=== PATIENT | male | born 1950 | race African-American/Black ===

== ENCOUNTER 2016-12-27 05:26 | Inpatient (IN) | payer MEDICARE, OTHER ==
[2016-12-27] VITALS (9 sets, daily range): BP systolic 140–170; BP diastolic 84–101
[~2016-12-27] VITALS: Ht 180.3 cm; Wt 77.1 kg
[~2016-12-27 05:26] MED LIST: BENAZEPRIL-HCT1 EAC1 PO; NORVASC10 MG PO; TENORMIN50 MG PO
[2016-12-27] MEDS ORDERED: Albuterol ud Inhalation HHN ONE (05:45)
--- NOTE | 2016-12-27 06:30 | Emergency Room Report ---
History of Present Illness General Chief Complaint: Dyspnea/Respdistress Source: Patient, EMS (NARCISO RICHMOND M.D.) Present Illness HPI Is a 66-year-old male with a history of renal failure hemodialysis Thursday, Thursday, and Thursday. he missed 2 dialysis session on Thursday and Thursday. The reason for this was because the of his mother in his planning the . The is today at 10 AM. he said he still able to urinate but less in the last week. He is becoming more and more shortness of breath. Worse tonight. He had to call 911. EMS said observation was fine but he was dyspneic. He fell better after oxygen. No fever or chills. No chest pain. Worse with exertion. Worse with lying flat. (NARCISO RICHMOND M.D.) Allergies: Coded Allergies: No Known Allergies (Unverified , 06/06/12) Patient History Past Medical History: see triage record, old chart reviewed, HTN, renal disease , dialysis Past Surgical History: other Pertinent Family History: none Social History: Denies: smoking Immunizations: other Reviewed Nursing Documentation: PMH: Agreed, PSxH: Agreed (NARCISO RICHMOND M.D.) Nursing Documentation-PMH Hx Hypertension: Yes Hx Dialysis: Yes - ESRD,M-W-F (NARCISO RICHMOND M.D.) Review of Systems Eye: Denies: blurred vision, eye pain ENT: Denies: ear pain, nose congestion, throat swelling Respiratory: Reports: shortness of breath, Denies: cough Cardiovascular: Denies: chest pain, palpitations Gastrointestinal: Denies: abdominal pain, diarrhea, nausea, vomiting Musculoskeletal: Denies: back pain, joint pain Skin: Denies: rash Neurological: Denies: headache, numbness Endocrine: Denies: increased thirst, increased urine Hematologic/Lymphatic: Denies: easy bruising All Other Systems: negative except mentioned in HPI (NARCISO RICHMOND M.D.) Physical Exam Vital Signs Date Time Temp Pulse Resp B/P Pulse Ox O2 Delivery O2 Flow Rate FiO2 12/27/16 05:25 98.6 94 18 165/99 100 Room Air vitals with hypertension Sp02 EP Interpretation: reviewed, normal General Appearance: well appearing, alert, mild distress Head: normocephalic, atraumatic Eyes: bilateral eye EOMI, bilateral eye PERRL ENT: hearing grossly normal, normal pharynx Neck: full range of motion, supple, no meningismus Respiratory: chest non-tender, respiratory distress - Mild, decreased breath sounds Cardiovascular #1: regular rate, rhythm, no murmur Gastrointestinal: normal bowel sounds, non tender, no mass, no organomegaly, no bruit, non-distended Musculoskeletal: back normal, gait/station normal, normal range of motion Neurologic: alert, oriented x3 Psychiatric: mood/affect normal Skin: warm/dry (NARCISO RICHMOND M.D.) Medical Decision Making Diagnostic Impression: Primary Impression: Respiratory distress Additional Impressions: Uremia ESRD (end stage renal disease) on dialysis Pulmonary edema Qualified Codes: J81.0 - Acute pulmonary edema UTI (urinary tract infection) Qualified Codes: N30.00 - Acute cystitis without hematuria ER Course Patient presents with respiratory distress and fluid overloaded. He need dialysis. He still better after breathing treatment and oxygen. I will put him in for admission. Labs are pending. I will sign this patient out to Dr. Oglesby. Lab Results Impression labs with elevated bnp. (NARCISO RICHMOND M.D.) ER Course Patient was admitted to Dr. Amaya. He insists on signing out AMA to go to his mother's . He was told of risk of in doing so. Given meds for HTN and also UTI. Improved with treatment. Extremely dyspneic with minimal exertion. He changed his mind and decided to stay. Repeat albuterol and nitrolpast applied. Morphine ordered. Laboratory Tests Test 12/27/16 05:44 12/27/16 06:30 White Blood Count 11.4 K/UL (4.8-10.8) H Red Blood Count 3.95 M/UL (4.70-6.10) L Hemoglobin 11.3 G/DL (14.2-18.0) L Hematocrit 34.6 % (42.0-52.0) L Mean Corpuscular Volume 88 FL (80-99) Mean Corpuscular Hemoglobin 28.6 PG (27.0-31.0) Mean Corpuscular Hemoglobin Concent 32.6 G/DL (32.0-36.0) Red Cell Distribution Width 14.6 % (11.6-14.8) Platelet Count 212 K/UL (150-450) Mean Platelet Volume 7.6 FL (6.5-10.1) Neutrophils (%) (Auto) 63.9 % (45.0-75.0) Lymphocytes (%) (Auto) 25.0 % (20.0-45.0) Monocytes (%) (Auto) 6.3 % (1.0-10.0) Eosinophils (%) (Auto) 3.9 % (0.0-3.0) H Basophils (%) (Auto) 0.9 % (0.0-2.0) Prothrombin Time 11.0 SEC (9.30-11.50) Prothrombin Time INR 1.1 (0.9-1.1) PTT 25 SEC (23-33) Sodium Level 144 mEQ/L (135-145) Potassium Level 4.3 mEQ/L (3.4-4.9) Chloride Level 100 mEQ/L (98-107) Carbon Dioxide Level 27 mEQ/L (20-30) Anion Gap 17 (5-15) H Blood Urea Nitrogen 53 mg/dL (7-23) H Creatinine 11.3 mg/dL (0.7-1.2) H Estimate Glomerular Filtration Rate 5.6 mL/min (>60) Glucose Level 114 mg/dL (74-106) H Calcium Level 9.4 mg/dL (8.6-10.2) Total Bilirubin 0.3 mg/dL (0.0-1.2) Aspartate Amino Transferase (AST) 13 U/L (5-40) Alanine Aminotransferase (ALT) 9 U/L (3-41) Alkaline Phosphatase 77 U/L (40-129) Total Creatine Kinase 99 U/L (38-174) Creatine Kinase MB 1.7 ng/mL (< 6.7) Creatine Kinase MB Relative Index 1.7 Troponin I < 0.30 ng/mL (<=0.30) Pro-B-Type Natriuretic Peptide 63647 pg/mL (0-125) H Total Protein 7.3 g/dL (6.6-8.7) Albumin 4.0 g/dL (3.5-5.2) Globulin 3.3 g/dL Albumin/Globulin Ratio 1.2 (1.0-2.7) Urine Color Pale yellow Urine Appearance Clear Urine pH 7 (4.5-8.0) Urine Specific [place] 1.010 (1.005-1.035) Urine Protein 4+ (NEGATIVE) H Urine Glucose (UA) Negative (NEGATIVE) Urine Ketones Negative (NEGATIVE) Urine Occult Blood 3+ (NEGATIVE) H Urine Nitrite Negative (NEGATIVE) Urine Bilirubin Negative (NEGATIVE) Urine Urobilinogen Normal MG/DL (0.0-1.0) Urine Leukocyte Esterase Negative (NEGATIVE) Urine RBC 15-20 /HPF (0 - 0) H Urine WBC 5-10 /HPF (0 - 0) H Urine Squamous Epithelial Cells Occasional /LPF Urine Bacteria Occasional /HPF (NONE) (Trino Oglesby M.D.) EKG Diagnostic Results Rate: normal Rhythm: NSR ST Segments: no acute changes (NARCISO RICHMOND M.D.) Rhythm Strip Diag. Results EP Interpretation: yes Rate: 90 Rhythm: NSR, no PVC's, no ectopy (NARCISO RICHMOND M.D.) EP Interpretation: yes Rhythm: NSR, no PVC's, no ectopy (Trino Oglesby M.D.) Chest X-Ray Diagnostic Results EP Interpretation: Yes Findings: no consolidation, no effusion, no pneumothorax, other - hyperinflation. fluids in the minor fissure. Number of Views: 1 (NARCISO RICHMOND M.D.) Last Vital Signs Date Time Temp Pulse Resp B/P Pulse Ox O2 Delivery O2 Flow Rate FiO2 12/27/16 05:58 87 18 100 Room Air 12/27/16 05:39 98.6 160/99 Status: improved (NARCISO RICHMOND M.D.) Last Vital Signs Date Time Temp Pulse Resp B/P Pulse Ox O2 Delivery O2 Flow Rate FiO2 12/27/16 19:41 72 16 Room Air 21 12/27/16 18:15 2.0 12/27/16 17:13 100 12/27/16 15:39 97.4 157/98 Status: improved (Trino Oglesby M.D.) Disposition: ADMITTED INPATIENT Condition: Serious Scripts Nitroglycerin (NITRO-BID*) 1 Gm Oint...g. 1 INCH TOPIC BID, #30 PKT 1 Refill Prov: Trino Oglesby M.D. 12/27/16 Referrals: NOT CHOSEN [facility]/,REFERRING (PCP) NARCISO RICHMOND M.D. December 27, 2016 06:30 Trino Oglesby M.D. December 27, 2016 07:53
[2016-12-27 06:38] LABS: BASOPHILS % (AUTO) 0.9 % (0.0-2.0); EOSINOPHILS % (AUTO) 3.9 % (0.0-3.0); MEAN CORPUSCULAR HEMOGLOBIN 28.6 PG (27.0-31.0); MEAN CORPUSCULAR HGB CONC 32.6 G/DL (32.0-36.0); MEAN CORPUSCULAR VOLUME 88 FL (80-99); MEAN PLATELET VOLUME 7.6 FL (6.5-10.1); MONOCYTES % (AUTO) 6.3 % (1.0-10.0); NEUTROPHILS % (AUTO) 63.9 % (45.0-75.0); PLATELET COUNT 212 K/UL (150-450); RED BLOOD COUNT 3.95 M/UL (4.70-6.10); RED CELL DISTRIBUTION WIDTH 14.6 % (11.6-14.8); WHITE BLOOD COUNT 11.4 K/UL (4.8-10.8)
[2016-12-27 06:46] LABS: INR 1.1 (0.9-1.1)
[2016-12-27 06:50] LABS: ALBUMIN/GLOBULIN RATIO 1.2 (1.0-2.7); CALCIUM 9.4 mg/dL (8.6-10.2); CREATININE 11.3 mg/dL (0.7-1.2); GLOMERULAR FILTRATION RATE 5.6 mL/min (>60); POTASSIUM 4.3 mEQ/L (3.4-4.9); TOTAL PROTEIN 7.3 g/dL (6.6-8.7); TROPONIN I < 0.30 ng/mL (<=0.30)
[2016-12-27] MEDS ORDERED: Benazepril 10mg tab ORAL ONE (07:00)
[2016-12-27 07:02] LABS: CKMB 1.7 ng/mL (< 6.7)
[2016-12-27 07:09] LABS: APPEARANCE,URINE CLEAR; KETONES,URINE NEGATIVE (NEGATIVE); LEUKOCYTE ESTERASE ,URINE NEGATIVE (NEGATIVE); NITRITE,URINE NEGATIVE (NEGATIVE); PH,URINE 7 (4.5-8.0); PROTEIN,URINE 4+ (NEGATIVE); UROBILINOGEN,URINE NORMAL MG/DL (0.0-1.0)
[2016-12-27 07:30] LABS: BACTERIA,URINE OCCASIONAL /HPF; RBC,URINE 15-20 /HPF (0 - 0); SQUAMOUS EPITHELIAL CELL,UR OCCASIONAL /LPF (NONE/OCC)
[2016-12-27] MEDS ORDERED: cefTRIAXone 1 GM in NS 55 ML IVPB ONE (07:45)
[2016-12-27] MEDS ORDERED: Nitroglycerin 2% oint pkt TOPIC ONE (07:45)
[2016-12-27] MEDS ORDERED: KEFLEX500 MG ORAL (07:48)
[2016-12-27] MEDS ORDERED: NITRO-BID1 GM TOPIC (07:48)
[2016-12-27] MEDS ORDERED: Morphine Sulfate 2mg/ml Inj IVP ONE (09:00)
[2016-12-27] MEDS ORDERED: Albuterol ud Inhalation HHN STA (09:23)
[2016-12-27] MEDS ORDERED: Heparin Sod 1000 units/ml 10ml IV PRN (15:45)
[2016-12-27] MEDS ORDERED: DuoNeb 0.5-3(2.5)mg/3ml neb HHN PRN (16:45)
--- NOTE | 2016-12-27 19:54 | History & Physical ---
History and Physical History & Physicial > dictated # [id number] ALVIN HUTCHINS December 27, 2016 19:54
--- NOTE | 2016-12-28 03:39 | History and Physical Report ---
DATE OF ADMISSION: 12/27/2016 CHIEF COMPLAINT: Shortness of breath. HISTORY OF PRESENT ILLNESS: This is a 66-year-old -Maldivian male with history of end-stage renal disease, on hemodialysis every Thursday, Thursday, and Thursday. He said that he missed dialysis last Thursday three days ago, and yesterday in terms of he had dialysis last Thursday and it was noted that he missed two times. In any event, he was planning for the of his mother who just , but he came to the emergency room because he was getting short of breath this morning and he was admitted, then he called 911. PAST MEDICAL HISTORY: History of hypertension. No history of diabetes now. Denies history of heart problems. SOCIAL HISTORY: The patient has a history of smoking. No history of alcohol abuse. REVIEW OF SYSTEMS: As above. PHYSICAL EXAMINATION: GENERAL: The patient is a 66-year-old male, in no acute distress. VITAL SIGNS: Blood pressure 165/99, pulse 94, temperature 98.6 degrees, and respiratory rate is 18. HEENT: [place] conjunctivae. Anicteric sclerae. NECK: Supple. LUNGS: Mild expiatory wheezing. HEART: S1 and S2 without murmurs or rubs. ABDOMEN: Soft and nontender. EXTREMITIES: No cyanosis or edema. LABORATORY FINDINGS: CBC shows WBC of 11.4, hematocrit 34.6, hemoglobin 11.3, and platelets 212,000. Chemistry panel shows serum sodium 144, potassium 4.3, chloride 100, BUN 53, creatinine 11.3, and glucose is 114. Troponin was negative. UA shows 15 to 20 RBCs, 5 to 10 WBCs per high-power field and 4+ protein. ASSESSMENT: This is a 66-year-old -Maldivian male, who was admitted with shortness of breath likely fluid overload. He was dialyzed and about 2 liters was removed. He feels better now. He wants to go home. He may have also some underlying chronic obstructive pulmonary disease because of history of smoking, but his lungs do not sound very bad at this point. PLAN: The patient was advised to stop smoking. He also was advised to comply with his dialysis. I will discharge him today and he was encouraged to go to his dialysis unit on Thursday at [facility] in [facility]. Thank you very much. Nabil Amaya M.D. DR: MONICA JOB#: [id number] CC:
--- NOTE | 2016-12-28 20:01 | Cardiology Report ---
APPROVED REPORT EKG Measurement Heart [id number] Sinus rhythm with premature supraventricular complexes Biatrial enlargement Nonspecific T wave abnormality Abnormal ECG
--- NOTE | 2016-12-30 10:43 | Discharge Summary ---
Discharge Summary Hospital Course Date of Admission December 27, 2016 at 06:52 Date of Discharge December 27, 2016 at 21:30 Admitting Diagnosis Fluid Overload HPI Bonifacio Paredes is a 66 year old male who was admitted on December 27, 2016 at 06:52 for Fluid Overload Hospital Course dc summary #[id number] Discharge Medications Continued Medications: Amlodipine Besylate (Norvasc) 10 Mg Tab 10 MG PO DAILY, TAB Take 1 tablet by mouth every day. Benazepril/Hydrochlorothiazide 20-12.5 Mg Tab (Benazepril-Hctz 20-12.5 Mg Tab) 1 Each Tablet 1 EACH PO DAILY Nitroglycerin (Nitro-Bid*) 1 Gm Oint...g. 1 INCH TOPIC BID, #30 PKT 1 Refill Discontinued Medications: Cephalexin* (Keflex*) 500 Mg Capsule 500 MG ORAL DAILY, #7 CAP 0 Refills Discharge Condition Upon Discharge: stable Discharge Disposition Patient was discharged to Home (01) Discharge Diagnoses: Discharge Instructions Discharge Instructions Special Instructions I have been assigned to complete a D/C Summary on this account. I was not involved in the patient management Colleen Ha NP (Vanchtein) December 30, 2016 10:43
== END 2016-12-27 21:30 | disposition home or self-care (01) | DRG 640 ==
LOC: EDBD 05:26 → EMR 06:05 → 4W 06:52 → EDBEDREQ 07:36
PROC: 5A1D00Z (ICD-10-PCS; principal; 2016-12-27)
DX: E87.70 Fluid overload, unspecified (principal); N18.6 End stage renal disease; J81.0 Acute pulmonary edema; I12.0 Hypertensive chronic kidney disease with stage 5 chronic kidney disease or end stage renal disease; J44.9 Chronic obstructive pulmonary disease, unspecified; N39.0 Urinary tract infection, site not specified; Z99.2 Dependence on renal dialysis; Z72.0 Tobacco use
CPT/HCPCS: 36415; 71010; 80053; 81003; 82550; 82553; 83880; 84484; 85025; 85610; 85730; 87081; 93005; 94640; 94664; J7620

== ENCOUNTER 2017-02-11 22:33 | Inpatient (IN) | payer MEDICARE, OTHER ==
[~2017-02-11] VITALS: Ht 180.3 cm; Wt 81.6 kg
[~2017-02-11 22:33] MED LIST changes: +AMLODIPINE BES2.5 MG ORAL; +KEFLEX500 MG ORAL; +NITRO-BID1 GM TOPIC
[2017-02-11] MEDS ORDERED: CLONIDINE HCL0.1 M1 PO (22:35)
[2017-02-11] MEDS ORDERED: AMLODIPINE BES2.5 MG ORAL (22:35)
[2017-02-11] MEDS ORDERED: LIBRIUM10 MG ORAL (22:35)
[2017-02-11 22:44] VITALS: BP 143/94
[2017-02-11] MEDS ORDERED: LORazepam Inj 2mg/ml 1ml IV ONE (22:45)
[2017-02-11] MEDS ORDERED: Zolpidem 5mg tab ORAL PRN (23:15)
[2017-02-11 23:35] LABS: BASOPHILS % (AUTO) 1.1 % (0.0-2.0); EOSINOPHILS % (AUTO) 5.5 % (0.0-3.0); LYMPHOCYTES % (AUTO) 29.9 % (20.0-45.0); MEAN CORPUSCULAR HEMOGLOBIN 28.9 PG (27.0-31.0); MEAN CORPUSCULAR HGB CONC 32.1 G/DL (32.0-36.0); MEAN CORPUSCULAR VOLUME 90 FL (80-99); NEUTROPHILS % (AUTO) 56.5 % (45.0-75.0); PLATELET COUNT 294 K/UL (150-450); RED BLOOD COUNT 2.99 M/UL (4.70-6.10); RED CELL DISTRIBUTION WIDTH 14.8 % (11.6-14.8); WHITE BLOOD COUNT 6.4 K/UL (4.8-10.8)
[2017-02-11 23:50] LABS: ALBUMIN/GLOBULIN RATIO 0.9 (1.0-2.7); CALCIUM 8.9 mg/dL (8.6-10.2); CREATININE 4.7 mg/dL (0.7-1.2); GLOMERULAR FILTRATION RATE 15.2 mL/min (>60); POTASSIUM 4.1 mEQ/L (3.4-4.9); TOTAL PROTEIN 7.7 g/dL (6.6-8.7)
[2017-02-11 23:52] LABS: TROPONIN I < 0.30 ng/mL (<=0.30)
[2017-02-12] VITALS (8 sets, daily range): BP systolic 136–164; BP diastolic 82–99
[2017-02-12 00:02] LABS: CKMB 2.1 ng/mL (< 6.7)
[2017-02-12] MEDS: DuoNeb 0.5-3(2.5)mg/3ml neb HHN SCH ×4 (00:39→23:00)
--- NOTE | 2017-02-12 01:43 | Emergency Room Report ---
History of Present Illness General Chief Complaint: Dyspnea/Respdistress Source: Patient, EMS Present Illness HPI 66-year-old M presents ED for respiratory distress. EMS states that patient was having shortness of breath which started shortly after dialysis today. Per EMS patient is hypertensive and had crackles noted in bilateral lungs. Patient was given nitroglycerin. Upon arrival patient showing distress. Also feels very anxious. Has psychiatric history. Denies any chest pain. Denies any fevers or chills. No other aggravating relieving factors. Denies any other associated symptoms Allergies: Coded Allergies: No Known Allergies (Unverified , 06/06/12) Patient History Past Medical History: HTN, psych hx, renal disease, dialysis Past Surgical History: none Pertinent Family History: none Social History: Denies: alcohol use, drug use, smoking Immunizations: UTD Reviewed Nursing Documentation: PMH: Agreed, PSxH: Agreed Nursing Documentation-PMH Hx Hypertension: Yes Hx Cancer: No Hx Gastrointestinal Problems: No Hx Dialysis: Yes - ESRD,M-W-F History Of Psychiatric Problem: Yes Hx Neurological Problems: No Review of Systems All Other Systems: negative except mentioned in HPI Physical Exam Vital Signs Date Time Temp Pulse Resp B/P Pulse Ox O2 Delivery O2 Flow Rate FiO2 02/11/17 22:37 129 18 100 Facial 35 02/11/17 22:44 143/94 Sp02 EP Interpretation: reviewed, normal General Appearance: alert, GCS 15, moderate distress Head: normocephalic Eyes: bilateral eye PERRL, bilateral eye normal inspection ENT: normal ENT inspection Neck: normal inspection Respiratory: crackles Cardiovascular #1: no edema, tachycardia Gastrointestinal: normal inspection Rectal: deferred Genitourinary: no CVA tenderness Musculoskeletal: normal inspection Neurologic: alert, oriented x3, responsive, motor strength/tone normal, sensory intact, speech normal Psychiatric: anxious Skin: normal inspection Lymphatic: normal inspection Procedures Critical Care Time Critical Care Time i. I feel this is a highly complex case requiring extensive working including EKG/Rhythm strip, Xray/CT/US, Blood/urine lab work, repeat exams while in ED, and administration of strong opiates/narcotics for pain control, admission to hospital or close patient follow up. Total time: 30 min bedside evaluation and treatment excludes procedures (EKG). Reason for critical care: Respiratory distress, hypertensive, tachycardic Possible complications: hypotension, hypertension, HI, shock, arrhythmias, metabolic acidosis, end organ damage, respiratory failure. Interventions: Labs, Ativan, BiPAP, EKG, chest x-ray Course: Patient here with respiratory distress. Crackles in both lung yeager. History of dialysis. Started on BiPAP. Given Ativan for anxiety. On reassessment readings improved. Consultations: nursing staff, EMS, family Performed by: Dr Aranda Tolerated well condition = serious j. because of unstable vital signs this patient had a condition that could potentially threaten life or limb. I feel this is a critical patient who required my full attention while patient was considered critical. Total Critical Care Time excluding procedures was greater than 35 minutes Medical Decision Making Diagnostic Impression: Primary Impression: Respiratory distress Additional Impressions: CHF (congestive heart failure) Qualified Codes: I50.9 - Heart failure, unspecified ESRD (end stage renal disease) on dialysis ER Course Hospital Course 66-year-old male presents ED with crackles, hypertensive, just completed dialysis. Shortness of breath Differential diagnoses include: HI/unstable angina, contusion, muscle strain, PTX, rib fracture Clinical course Patient placed on stretcher. on phototypesetting equipment monitor. Patient started on BiPAP. Given Ativan for anxiety. After initial history and physical I ordered labs, EKG, chest x-ray labs reviewed- no leukocytosis, hemoglobin 8.6, BUN/creatinine elevated, troponins negative, BNP elevated EKG - atrial flutter, no acute ischemic changes interpreted by me Chest x-ray- no acute cardiac process identified On reassessment breathing is improved. Tachycardia resolved. O2 saturations good. Case discussed with Dr. Amaya and he agreed to accept the patient to his service for further care and support I. I feel this is a highly complex case requiring extensive working including EKG/Rhythm strip, Xray/CT/US, Blood/urine lab work, repeat exams while in ED, and administration of strong opiates/narcotics for pain control, admission to hospital or close patient follow up. Diagnosis - CHF exacerbation, respiratory distress, ESRD on dialysis admitted to [facility] in serious condition Labs Test 02/11/17 22:52 White Blood Count 6.4 K/UL (4.8-10.8) Red Blood Count 2.99 M/UL (4.70-6.10) Hemoglobin 8.6 G/DL (14.2-18.0) Hematocrit 26.9 % (42.0-52.0) Mean Corpuscular Volume 90 FL (80-99) Mean Corpuscular Hemoglobin 28.9 PG (27.0-31.0) Mean Corpuscular Hemoglobin Concent 32.1 G/DL (32.0-36.0) Red Cell Distribution Width 14.8 % (11.6-14.8) Platelet Count 294 K/UL (150-450) Mean Platelet Volume 7.0 FL (6.5-10.1) Neutrophils (%) (Auto) 56.5 % (45.0-75.0) Lymphocytes (%) (Auto) 29.9 % (20.0-45.0) Monocytes (%) (Auto) 7.0 % (1.0-10.0) Eosinophils (%) (Auto) 5.5 % (0.0-3.0) Basophils (%) (Auto) 1.1 % (0.0-2.0) Sodium Level 142 mEQ/L (135-145) Potassium Level 4.1 mEQ/L (3.4-4.9) Chloride Level 94 mEQ/L (98-107) Carbon Dioxide Level 34 mEQ/L (20-30) Anion Gap 14 (5-15) Blood Urea Nitrogen 16 mg/dL (7-23) Creatinine 4.7 mg/dL (0.7-1.2) Estimat Glomerular Filtration Rate 15.2 mL/min (>60) Glucose Level 111 mg/dL (74-106) Calcium Level 8.9 mg/dL (8.6-10.2) Total Bilirubin 0.2 mg/dL (0.0-1.2) Aspartate Amino Transf (AST/SGOT) 68 U/L (5-40) Alanine Aminotransferase (ALT/SGPT) 39 U/L (3-41) Alkaline Phosphatase 190 U/L (40-129) Total Creatine Kinase 164 U/L (38-174) Creatine Kinase MB 2.1 ng/mL (< 6.7) Creatine Kinase MB Relative Index 1.2 Troponin I < 0.30 ng/mL (<=0.30) Pro-B-Type Natriuretic Peptide 60466 pg/mL (0-125) Total Protein 7.7 g/dL (6.6-8.7) Albumin 3.7 g/dL (3.5-5.2) Globulin 4.0 g/dL Albumin/Globulin Ratio 0.9 (1.0-2.7) EKG Diagnostic Results Rate: tachycardiac Rhythm: other - aflutter ST Segments: no acute changes ASA given to the pt in ED: No Rhythm Strip Diag. Results EP Interpretation: yes Rhythm: no PVC's, no ectopy Chest X-Ray Diagnostic Results Chest X-Ray Ordered: Yes # of Views/Limited/Complete: 1 View EP Interpretation: Yes Interpretation: no consolidation, no effusion, no pneumothorax, no acute cardiopulmonary disease Indication: Shortness of Breath Impression: No acute disease Interpreting ER Provider: Alfredo Aranda MD Last Vital Signs Date Time Temp Pulse Resp B/P Pulse Ox O2 Delivery O2 Flow Rate FiO2 02/12/17 01:14 77 18 148/83 100 Bi-pap 35 Status: improved Disposition: ADMITTED INPATIENT Condition: Serious Referrals: NOT CHOSEN DEMARCUS/,REFERRING (PCP) ALFREDO ARANDA M.D. Feb 12, 2017 01:43
[2017-02-12 05:09] LABS: BASOPHILS % (AUTO) 0.8 % (0.0-2.0); EOSINOPHILS % (AUTO) 2.4 % (0.0-3.0); MEAN CORPUSCULAR HEMOGLOBIN 29.1 PG (27.0-31.0); MEAN CORPUSCULAR HGB CONC 32.2 G/DL (32.0-36.0); MEAN CORPUSCULAR VOLUME 91 FL (80-99); MEAN PLATELET VOLUME 7.7 FL (6.5-10.1); MONOCYTES % (AUTO) 7.1 % (1.0-10.0); NEUTROPHILS % (AUTO) 71.7 % (45.0-75.0); PLATELET COUNT 243 K/UL (150-450); RED BLOOD COUNT 2.88 M/UL (4.70-6.10); RED CELL DISTRIBUTION WIDTH 14.8 % (11.6-14.8); WHITE BLOOD COUNT 6.2 K/UL (4.8-10.8)
[2017-02-12 05:53] LABS: CALCIUM 9.1 mg/dL (8.6-10.2); CHOLESTEROL/HDL RATIO 2.3 (3.3-4.4); CREATININE 5.4 mg/dL (0.7-1.2); POTASSIUM 4.2 mEQ/L (3.4-4.9)
[2017-02-12 05:55] LABS: HEMOGLOBIN A1C 4.4 % (< 6.0)
[2017-02-12 05:56] LABS: TROPONIN I < 0.30 ng/mL (<=0.30)
[2017-02-12 06:03] LABS: THYROID STIMULATING HORMONE 1.97 uIU/mL (0.300-4.500)
[2017-02-12 09:19] LABS: MAGNESIUM 1.8 mg/dL (1.7-2.5); PHOSPHORUS 2.6 mg/dL (2.5-4.8)
[2017-02-12] MEDS: Aspirin Baby 81mg ORAL SCH (09:24)
[2017-02-12] MEDS: Nitroglycerin 2% oint pkt TOPIC SCH ×2 (09:25→18:00)
--- NOTE | 2017-02-12 12:42 | Consultation ---
Consult Note Assessment/Plan Renal consult dictated # [id number] ALVIN HUTCHINS Feb 12, 2017 12:42
[2017-02-12] MEDS ORDERED: LIPITOR80 MG ORAL (13:42)
[2017-02-12] MEDS ORDERED: ASPIR 8181 MG ORAL (13:42)
[2017-02-12] MEDS ORDERED: LEXAPRO10 MG ORAL (13:42)
[2017-02-12] MEDS ORDERED: PLAVIX75 MG ORAL (13:42)
[2017-02-12] MEDS ORDERED: FLOMAX0.4 MG ORAL (13:44)
[2017-02-12] MEDS ORDERED: SPIRIVA18 MCG INH (13:44)
[2017-02-12] MEDS ORDERED: GABAPENTIN100 MG ORAL (13:44)
[2017-02-12] MEDS ORDERED: NICODERM 7MG/24H1 EA TD (13:44)
[2017-02-12] MEDS ORDERED: Albuterol 90mcg Inhaler 8gm INH PRN (14:30)
--- NOTE | 2017-02-12 14:41 | History & Physical ---
History and Physical History & Physicial H&P dictated [id number] records reviewed at [facility] Dx: SOB - ddx: pulmonary edema vs pericardial effusion vs angina equivilent TTE ordered resume home ENRIQUE Lord M.D. Feb 12, 2017 14:41
[2017-02-12] MEDS: Lisinopril 20mg tab ORAL SCH (14:56)
[2017-02-12] MEDS: ALPRAZolam 0.5mg tab ORAL PRN ×2 (14:57→22:16)
[2017-02-12] MEDS: LORazepam 1mg tab ORAL PRN (14:58)
[2017-02-12] MEDS: traMADol 50mg tab ORAL PRN ×2 (14:58→22:16)
[2017-02-12 15:03] LABS: TROPONIN I < 0.30 ng/mL (<=0.30)
--- NOTE | 2017-02-12 16:01 | Consultation ---
DATE OF CONSULTATION: NEPHROLOGY CONSULTATION REFERRING PHYSICIAN: Trino Hinds M.D. REASON FOR CONSULTATION: End-stage renal disease, requiring hemodialysis. HISTORY OF PRESENT ILLNESS: This is a 66-year-old male, who is an end-stage renal disease, on dialysis every Thursday, Thursday, and Thursday. The patient went to his dialysis yesterday and he usually gets four hours with each section and after three hours he said he could not take it any more. He was getting short of breath. They stopped the dialysis, however, his breathing problem continued and finally he came to the emergency room. The patient was started on BiPAP in the emergency room and was admitted to [facility]. PAST MEDICAL HISTORY: History of end-stage renal disease as mentioned, likely as a result of hypertension. The patient apparently had also history of coronary disease. He said that he was short of breath about a month ago, he went to the hospital and they put a stent. MEDICATIONS: Reviewed. ALLERGIES: No known drug allergies. REVIEW OF SYSTEMS: Noncontributory except for above. PHYSICAL EXAMINATION: GENERAL: The patient is a 66-year-old male, in no acute distress. The patient was seen on dialysis. He appears comfortable on nasal cannula oxygen. VITAL SIGNS: Blood pressure 156/93, pulse 79, temperature 98.1 degrees, and respirations 20. HEENT: Pale conjunctivae. Anicteric sclerae. NECK: Supple. LUNGS: Clear to auscultation. HEART: S1 and S2 without murmurs or rubs. ABDOMEN: Soft and nontender. EXTREMITIES: No cyanosis or edema. LABORATORY AND DIAGNOSTIC DATA: CBC shows a WBC of 6.2, hematocrit 26.1, hemoglobin 8.4, and platelets 243,000. Chemistry panel shows serum sodium of 142, potassium 4.2, chloride 95, CO2 36, BUN is 20, creatinine 5.4, and blood sugar is 94. Phosphorus 2.6. Magnesium 1.8. TSH is 1.97. LDL is 41 and HDL is 39. ASSESSMENT: This is a 66-year-old male, who was admitted with shortness of breath. It is unclear if this is a fluid overload or the patient has underlying chronic obstructive pulmonary disease. He does history of smoking for many years and he can have chronic obstructive pulmonary disease or even emphysema. PLAN: The patient will be dialyzed to more fluid. He will be on respiratory treatments, bronchodilators and Pulmonary consultation was obtained. The patient's medications will be adjusted. The patient will be on Epogen for his anemia. Iron panel will be checked with the next laboratories. Because of the history of possibly history of coronary artery disease, he also needs to be on simvastatin. Thank you very much for this consultation. Nabil Amaya M.D. DR: BETHANY JOB#: [id number] CC: JASSON
--- NOTE | 2017-02-12 16:25 | Diagnostic Imaging Report ---
Indication: SOB Technique: One view of the chest Comparison: I. 13 2017 Findings: Lungs and pleural spaces are clear. Heart size is normal. No significant interim change Impression: No acute process
--- NOTE | 2017-02-12 17:01 | Consultation ---
Consult Note Assessment/Plan dict dyspnea, multifactorial COPD suspect CHF Renal failure on HD anemia HTN CAD, recent NSTEMI pericarditis, possible recurrent Hep C cont UF, HD HHN echo consider cardiac TAVO Cooley Feb 12, 2017 17:01
[2017-02-12] MEDS: Propranolol 40mg tab ORAL SCH (18:00)
--- NOTE | 2017-02-12 20:31 | Consultation ---
DATE OF CONSULTATION: 02/12/2017 PULMONARY CONSULTATION HISTORY OF PRESENT ILLNESS: The patient is a 66-year-old man, who came to the hospital because of shortness of breath after dialysis. He was thought to have fluid overload and is feeling better now. He was initially treated with BiPAP, but this has been discontinued. He states that this has been happening recurrently. He has some cough, sputum, and some chronic dyspnea on exertion. He is a long-time cigarette smoker and continues to smoke despite advice against this. He was hospitalized recently at another hospital with acute myocardial infarction, congestive heart failure, systolic and diastolic dysfunction with ejection fraction 46%, and Josef syndrome with pericarditis. He is on chronic hemodialysis. PAST MEDICAL HISTORY: Coronary artery disease, recent stent placement into obtuse marginal on 01/15/2017, end-stage renal disease, on dialysis, hypertension, possible chronic obstructive pulmonary disease, anemia, and hepatitis C. MEDICATIONS: Reviewed. ALLERGIES: None. REVIEW OF SYSTEMS: As noted above. PHYSICAL EXAMINATION: GENERAL: The patient is well developed and well nourished. He appears to be in no distress. He is coughing. VITAL SIGNS: There is no fever. His blood pressure has been elevated up to 170/90. Saturation is 90% to 100%. The heart rate is 72 to 87. HEENT: The head is normocephalic. NECK: He has no jugular venous distention. CHEST: He has few wheezes and rhonchi. CARDIAC: Rhythm is regular. ABDOMEN: Soft and nontender. EXTREMITIES: No clubbing, cyanosis, or edema. The shunt is in the left upper arm. LABORATORY AND DIAGNOSTIC STUDIES: Chest x-ray is clear. Laboratory studies show the findings consistent with renal failure. His hemoglobin is 8.4. IMPRESSION: 1. Dyspnea with acute respiratory failure, multifactorial. 2. Congestive heart failure, systolic and diastolic with ejection fraction 46%. 3. Probable chronic obstructive pulmonary disease in a heavy cigarette smoker. 4. Coronary disease with recent stent placement. 5. Hypertension. 6. Anemia. 7. Hepatitis C. 8. End-stage renal disease, on hemodialysis with recent pericarditis. PLAN: The patient will continue on ultrafiltration, hemodialysis, and nebulizer treatments. We will get pulmonary function tests done after he is discharged. Thank you for asking me to see him in consultation. Bonifcaio Austin M.D. DR: MIK JOB#: [id number] CC: Nabil Amaya M.D.; Fax#: [phone] Austin M.D. ; Fax#: [phone]
--- NOTE | 2017-02-12 21:31 | History and Physical Report ---
DATE OF ADMISSION: 02/11/2017 REASON FOR ADMISSION: Shortness of breath. 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 He was started on colchicine and naproxen. He also had dialysis sessions at alleviating symptoms from his pericarditis. The patient reported shortness of breath yesterday during his dialysis sessions . He denies any chest pain. He was placed on BiPAP when he came in. In the emergency room, his lungs were noted to have crackles and panic attack feeling like he . He states that he is compliant with all of his medications including his aspirin and Plavix. It is important to note that the patient states that the first time he had NSTEMI he reported shortness of breath as well as anginal equivalence. 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 Ultrasound shows no evidence of cirrhosis. PAST SURGICAL HISTORY: Left arm fistula and stent placement. ALLERGIES: No known drug allergies. MEDICATIONS: Reviewed in [facility]. SOCIAL HISTORY: The patient is currently a smoker half pack per day for 12 years. No drugs. No alcohol. FAMILY HISTORY: Noncontributory. REVIEW OF SYSTEMS: Twelve-point review of systems is negative except for pertinent positives as mentioned above. PHYSICAL EXAMINATION: VITAL SIGNS: Temperature 98.1 degrees, pulse 79, respiratory rate 20, blood pressure 156/93, and pulse oximetry 99% on two liters. GENERAL: No acute distress. The patient is awake. HEENT: Normocephalic/atraumatic. NECK: Supple. No JVD. LUNGS: Clear to auscultation bilaterally. Decreased breath sounds. No wheezing appreciated. No crackles. CARDIOVASCULAR: Regular rate and rhythm. Normal S1, S2. ABDOMEN: Soft, nontender, and nondistended. EXTREMITIES: Left arm fistula with thrill. SKIN: No rashes. No jaundice. NEUROLOGIC: The patient is awake and can move all extremities. LABORATORY AND DIAGNOSTIC DATA: CBC, white count 6.2, hemoglobin 8.4, platelet count 343,000. BMP, sodium 143, potassium 4.3, chloride 95, CO2 36, BUN 20, creatinine 5.4, troponin less than 0.3. Phosphorus 2.6 and magnesium 1.8. LDL 41. EKG shows atrial flutter. ASSESSMENT: 1. Shortness of breath appeared to be secondary to pulmonary edema based on clinical examination in the emergency room however could also be secondary to pericardial effusion versus less likely angina equivalent. 2. Hypertension-uncontrolled. 3. End-stage renal disease, on hemodialysis. 4. Nicotine abuse. 5. History of non-sustained ventricular tachycardia/coronary artery disease status post percutaneous coronary intervention complicated by Josef syndrome/pericarditis. 6. Hepatitis C. 7. Anxiety. 8. Chronic diastolic dysfunction and heart failure with ejection fraction of 43%. PLAN: 1. The patient will be admitted to PCU. 2. Hemodialysis is ongoing at this time. 3. Resume home medications including colchicine for Pericarditis. 4. . 5. Pulmonary consult with Dr. Bonifacio Austin. 6. Renal consult with Dr. Amaya. 7. Trend troponin. 8. Started propranolol instead of atenolol 40 mg p.o. b.i.d. for hypertension anxiety. Trino Hinds MD DR: Freddy JOB#: [id number] CC:
[2017-02-12] MEDS: Tamsulosin 0.4mg cap ORAL SCH (22:19)
[2017-02-13] VITALS: BP 148/104
[2017-02-13 04:30] VITALS: BP 160/89
[2017-02-13] MEDS ORDERED: Heparin Sod 1000 units/ml 10ml IV SCH (06:00)
[2017-02-13] MEDS ORDERED: Heparin 5000 units/ml inj INJ SCH (06:00)
[2017-02-13 06:01] LABS: TROPONIN I < 0.30 ng/mL (<=0.30)
[2017-02-13] MEDS: DuoNeb 0.5-3(2.5)mg/3ml neb HHN SCH ×3 (07:09→23:25)
[2017-02-13 08:00] VITALS: BP 151/93
[2017-02-13] MEDS: Nitroglycerin 2% oint pkt TOPIC SCH ×2 (09:04→17:11)
[2017-02-13] MEDS: Lisinopril 20mg tab ORAL SCH (09:04)
[2017-02-13] MEDS: Aspirin Baby 81mg ORAL SCH (09:05)
[2017-02-13] MEDS: Propranolol 40mg tab ORAL SCH ×2 (09:05→17:11)
[2017-02-13] MEDS: Escitalopram Oxalate 5mg tab ORAL SCH (09:07)
[2017-02-13] MEDS: LORazepam 1mg tab ORAL PRN (11:54)
[2017-02-13 12:00] VITALS: BP 156/94
--- NOTE | 2017-02-13 13:58 | Pulmonology Progress Note ---
Assessment/Plan Assessment/Plan 1. Dyspnea with acute respiratory failure, multifactorial, improved 2. Congestive heart failure, systolic and diastolic with ejection fraction 46%. 3. Probable chronic obstructive pulmonary disease in a heavy cigarette smoker. 4. Coronary disease with recent stent placement. 5. Hypertension. 6. Anemia. 7. Hepatitis C. 8. End-stage renal disease, on hemodialysis with recent pericarditis. I suspect he has significant COPD needs PFT after dc advised to quit smoking cont HD/UF, cardiac care, HHN Subjective Respiratory: Denies: dyspnea at rest, shortness of breath Allergies: Coded Allergies: No Known Allergies (Unverified , 06/06/12) Objective Last 24 Hour Vital Signs Date Time Temp Pulse Resp B/P Pulse Ox O2 Delivery O2 Flow Rate FiO2 02/13/17 12:00 75 02/13/17 12:00 98.2 73 14 156/94 98 Bi-pap 35 02/13/17 11:05 82 15 96 Facial 35 02/13/17 09:06 72 16 92 Room Air 02/13/17 09:05 77 151/93 02/13/17 09:05 77 151/93 02/13/17 09:04 72 16 92 Room Air 02/13/17 09:04 151/93 02/13/17 09:04 151/93 02/13/17 08:00 98.3 77 21 151/93 100 Nasal Cannula 2.0 02/13/17 08:00 80 02/13/17 07:15 72 18 100 Nasal Cannula 2.0 02/13/17 07:05 70 18 100 Nasal Cannula 2.0 02/13/17 06:36 Nasal Cannula 2.0 02/13/17 06:33 100 Nasal Cannula 2.0 02/13/17 04:30 97.6 74 18 160/89 99 Nasal Cannula 3.0 02/13/17 04:00 73 02/13/17 00:00 88 02/13/17 00:00 97.3 88 20 148/104 96 Nasal Cannula 3.0 02/12/17 23:10 79 16 98 Bi-pap 35 02/12/17 23:02 81 14 97 Facial 35 02/12/17 22:58 81 15 97 Bi-pap 35 02/12/17 22:16 97.9 02/12/17 20:11 75 15 97 35 02/12/17 20:00 82 02/12/17 20:00 97.9 75 21 164/99 96 Nasal Cannula 3.0 02/12/17 18:00 80 170/67 02/12/17 18:00 154/96 02/12/17 16:32 75 16 99 02/12/17 16:00 87 02/12/17 16:00 99.6 85 21 154/96 100 Nasal Cannula 3.0 02/12/17 14:56 170/90 02/12/17 14:35 82 16 99 02/12/17 14:34 78 15 100 Nasal Cannula 2.0 28 02/12/17 14:23 75 16 99 Nasal Cannula 2.0 28 Intake and Output 02/12/17 02/13/17 19:00 07:00 Intake Total 220 ml Output Total 1700 ml Balance -1700 ml 220 ml Intake Oral 220 ml Hemodialysis UF 1700 ml General Appearance: no acute distress HEENT: anicteric Respiratory/Chest: decreased breath sounds Cardiovascular: normal rate Laboratory Tests 02/12/17 14:30: Troponin I < 0.30 02/13/17 03:40: Troponin I < 0.30 Current Medications Medications (Trade) Dose Ordered Sig/Bisi Route PRN Reason Start Time Stop Time Status Last Admin Dose Admin Acetaminophen (Tylenol) 650 mg Q4H PRN ORAL Mild Pain (Pain Scale 1-3) 02/11/17 23:15 03/13/17 23:14 Albuterol Sulfate (Proventil MDI) 2 puff Q4H PRN INH Shortness of Breath 02/12/17 14:30 03/14/17 14:29 Albuterol/ Ipratropium (DuoNeb 0.5-3(2.5)mg/3ml) 3 ml EVERY 8 HOURS HHN 02/11/17 23:15 02/16/17 23:14 02/13/17 07:09 Alprazolam (Xanax) 0.5 mg Q6H PRN ORAL For Anxiety 02/12/17 14:00 02/19/17 13:59 02/12/17 22:16 Amlodipine Besylate (Norvasc) 10 mg DAILY ORAL 02/12/17 09:00 03/14/17 08:59 02/13/17 09:05 Aspirin (ASA) 81 mg DAILY ORAL 02/12/17 09:00 03/14/17 08:59 02/13/17 09:05 Atorvastatin Calcium (Lipitor) 10 mg BEDTIME ORAL 02/12/17 21:00 03/14/17 20:59 02/12/17 22:15 Clonidine HCl (Catapres) 0.1 mg TID PRN ORAL sbp>160 02/12/17 18:00 03/14/17 17:59 Clopidogrel Bisulfate (Plavix) 75 mg DAILY ORAL 02/12/17 14:00 03/14/17 13:59 02/13/17 09:05 Dextrose STAT PRN IV Hypoglycemia 02/11/17 23:15 03/13/17 23:14 Diphenhydramine HCl (Benadryl) 25 mg Q6H PRN ORAL Itching/Pruritis 02/11/17 23:15 03/13/17 23:14 Escitalopram Oxalate (Lexapro) 5 mg DAILY ORAL 02/13/17 09:00 03/15/17 08:59 02/13/17 09:07 Gabapentin (Neurontin) 100 mg THREE TIMES A DAY ORAL 02/12/17 18:00 03/14/17 17:59 02/13/17 13:18 Heparin Sodium (Porcine) (Heparin 5000 units/ml) 5,000 units POSTHD INJ 02/13/17 06:00 02/13/17 18:00 Heparin Sodium (Porcine) (Heparin Sod 1000 units/ml 10ml) 2,000 unit ONCE IV 02/13/17 06:00 02/13/17 18:00 Hydralazine HCl (Apresoline) 10 mg Q6H PRN IV sbp > 170 02/12/17 15:56 03/14/17 13:59 Lisinopril (Prinivil) 20 mg DAILY ORAL 02/12/17 14:00 03/14/17 13:59 02/13/17 09:04 Lorazepam (Ativan) 1 mg THREE TIMES A DAY PRN ORAL For Anxiety 02/12/17 13:30 02/19/17 13:29 02/13/17 11:54 Multivitamins (Multivitamins) 1 tab DAILY ORAL 02/13/17 09:00 03/15/17 08:59 02/13/17 09:05 Nicotine (Nicoderm) 1 patch Q24H TDERMAL 02/12/17 17:00 03/14/17 16:59 02/12/17 17:00 Nitroglycerin (Nitro-Bid) 1 inch BID TOPIC 02/12/17 09:00 03/14/17 08:59 02/13/17 09:04 Propranolol HCl (Inderal) 40 mg BID ORAL 02/12/17 18:00 03/14/17 17:59 02/13/17 09:05 Sodium Chloride (Sodium Chloride 1000ml bag) 1,000 ml @ 500 mls/hr Q2H PRN IVLG sbp<90 during hd 02/13/17 06:00 02/13/17 18:00 Tamsulosin HCl (Flomax) 0.4 mg BEDTIME ORAL 02/12/17 21:00 03/14/17 20:59 02/12/17 22:19 Tiotropium [place] (Spiriva Inhaler) 1 puff DAILY INH 02/13/17 09:00 03/15/17 08:59 02/13/17 09:02 Tramadol HCl (Ultram) 50 mg Q6H PRN ORAL Moderate Pain (Pain Scale 4-6) 02/12/17 14:30 02/19/17 14:29 02/12/17 22:16 Zolpidem Tartrate (Ambien) 5 mg DAILYPRN PRN ORAL Insomnia 02/11/17 23:15 03/13/17 23:14 TAVO MARTINEZ Feb 13, 2017 13:58
--- NOTE | 2017-02-13 14:50 | Nephrology Progress Note ---
Assessment/Plan Problem List: (1) HTN (hypertension) (2) CAD (coronary artery disease) (3) ESRD (end stage renal disease) on dialysis (4) CHF (congestive heart failure) (5) Respiratory failure Plan HD in AM No MVI start Nephrovite start Epogen Subjective Subjective feels better Objective Objective Last 24 Hour Vital Signs Date Time Temp Pulse Resp B/P Pulse Ox O2 Delivery O2 Flow Rate FiO2 02/13/17 14:26 74 18 100 Nasal Cannula 2.0 02/13/17 14:12 74 20 98 Nasal Cannula 2.0 02/13/17 12:00 75 02/13/17 12:00 98.2 73 14 156/94 98 Bi-pap 35 02/13/17 11:05 82 15 96 Facial 35 02/13/17 09:06 72 16 92 Room Air 02/13/17 09:05 77 151/93 02/13/17 09:05 77 151/93 02/13/17 09:04 72 16 92 Room Air 02/13/17 09:04 151/93 02/13/17 09:04 151/93 02/13/17 08:00 98.3 77 21 151/93 100 Nasal Cannula 2.0 02/13/17 08:00 80 02/13/17 07:15 72 18 100 Nasal Cannula 2.0 02/13/17 07:05 70 18 100 Nasal Cannula 2.0 02/13/17 06:36 Nasal Cannula 2.0 02/13/17 06:33 100 Nasal Cannula 2.0 02/13/17 04:30 97.6 74 18 160/89 99 Nasal Cannula 3.0 02/13/17 04:00 73 02/13/17 00:00 88 02/13/17 00:00 97.3 88 20 148/104 96 Nasal Cannula 3.0 02/12/17 23:10 79 16 98 Bi-pap 35 02/12/17 23:02 81 14 97 Facial 35 02/12/17 22:58 81 15 97 Bi-pap 35 02/12/17 22:16 97.9 02/12/17 20:11 75 15 97 35 02/12/17 20:00 82 02/12/17 20:00 97.9 75 21 164/99 96 Nasal Cannula 3.0 02/12/17 18:00 80 170/67 02/12/17 18:00 154/96 02/12/17 16:32 75 16 99 02/12/17 16:00 87 02/12/17 16:00 99.6 85 21 154/96 100 Nasal Cannula 3.0 02/12/17 14:56 170/90 Intake and Output 02/12/17 02/13/17 19:00 07:00 Intake Total 220 ml Output Total 1700 ml Balance -1700 ml 220 ml Intake Oral 220 ml Hemodialysis UF 1700 ml Laboratory Tests 02/13/17 03:40: Troponin I < 0.30 Height (Feet): 5 Height (Inches): 11.00 Weight (Pounds): 180 Cardiovascular: normal rate Respiratory/Chest: lungs clear Extremities: other - no edema ALVIN HUTCHINS Feb 13, 2017 14:50
[2017-02-13 16:00] VITALS: BP 156/97
[2017-02-13] MEDS: Nephrovite tab ORAL SCH (17:10)
[2017-02-13] MEDS: ALPRAZolam 0.5mg tab ORAL PRN (17:22)
[2017-02-13] MEDS: traMADol 50mg tab ORAL PRN (17:23)
[2017-02-13 20:00] VITALS: BP 159/90
--- NOTE | 2017-02-13 20:23 | Internal Med Progress Note ---
Subjective Physician Name GuzmanEnrique Attending Physician Nabil Amaya Current Medications Medications (Trade) Dose Ordered Sig/Bisi Route PRN Reason Start Time Stop Time Status Last Admin Dose Admin Acetaminophen (Tylenol) 650 mg Q4H PRN ORAL Mild Pain (Pain Scale 1-3) 02/11/17 23:15 03/13/17 23:14 Albuterol Sulfate (Proventil MDI) 2 puff Q4H PRN INH Shortness of Breath 02/12/17 14:30 03/14/17 14:29 Albuterol/ Ipratropium (DuoNeb 0.5-3(2.5)mg/3ml) 3 ml EVERY 8 HOURS HHN 02/11/17 23:15 02/16/17 23:14 02/13/17 14:11 Alprazolam (Xanax) 0.5 mg Q6H PRN ORAL For Anxiety 02/12/17 14:00 02/19/17 13:59 02/13/17 17:22 Amlodipine Besylate (Norvasc) 10 mg DAILY ORAL 02/12/17 09:00 03/14/17 08:59 02/13/17 09:05 Aspirin (ASA) 81 mg DAILY ORAL 02/12/17 09:00 03/14/17 08:59 02/13/17 09:05 Atorvastatin Calcium (Lipitor) 10 mg BEDTIME ORAL 02/12/17 21:00 03/14/17 20:59 02/12/17 22:15 Clonidine HCl (Catapres) 0.1 mg TID PRN ORAL sbp>160 02/12/17 18:00 03/14/17 17:59 Clopidogrel Bisulfate (Plavix) 75 mg DAILY ORAL 02/12/17 14:00 03/14/17 13:59 02/13/17 09:05 Dextrose (Dextrose 50%) STAT PRN IV Hypoglycemia 02/11/17 23:15 03/13/17 23:14 Diphenhydramine HCl (Benadryl) 25 mg Q6H PRN ORAL Itching/Pruritis 02/11/17 23:15 03/13/17 23:14 Epoetin Zurdo (Procrit (for ESRD on dialysis)) 5,000 units MON-WED-FRI SUBQ 02/13/17 21:00 03/15/17 20:59 Escitalopram Oxalate (Lexapro) 5 mg DAILY ORAL 02/13/17 09:00 03/15/17 08:59 02/13/17 09:07 Gabapentin (Neurontin) 100 mg THREE TIMES A DAY ORAL 02/12/17 18:00 03/14/17 17:59 02/13/17 17:10 Heparin Sodium (Porcine) (Heparin 5000 units/ml) 5,000 units POSTHD INJ 02/14/17 06:00 02/14/17 23:59 Heparin Sodium (Porcine) (Heparin Sod 1000 units/ml 10ml) 2,000 unit ONCE IV 02/14/17 06:00 02/14/17 23:59 Lisinopril (Prinivil) 20 mg DAILY ORAL 02/12/17 14:00 03/14/17 13:59 02/13/17 09:04 Lorazepam (Ativan) 1 mg THREE TIMES A DAY PRN ORAL For Anxiety 02/12/17 13:30 02/19/17 13:29 02/13/17 11:54 Nicotine (Nicoderm) 1 patch Q24H TDERMAL 02/12/17 17:00 03/14/17 16:59 02/13/17 17:12 Nitroglycerin (Nitro-Bid) 1 inch BID TOPIC 02/12/17 09:00 03/14/17 08:59 02/13/17 17:11 Propranolol HCl (Inderal) 40 mg BID ORAL 02/12/17 18:00 03/14/17 17:59 02/13/17 17:11 Sodium Chloride (Sodium Chloride 1000ml bag) 1,000 ml @ 500 mls/hr Q2H PRN IVLG sbp<90 during hd 02/14/17 06:00 02/14/17 23:59 Tamsulosin HCl (Flomax) 0.4 mg BEDTIME ORAL 02/12/17 21:00 03/14/17 20:59 02/12/17 22:19 Tiotropium [place] (Spiriva Inhaler) 1 puff DAILY INH 02/13/17 09:00 03/15/17 08:59 02/13/17 09:02 Tramadol HCl (Ultram) 50 mg Q6H PRN ORAL Moderate Pain (Pain Scale 4-6) 02/12/17 14:30 02/19/17 14:29 02/13/17 17:23 Vitamin B Complex/ Vit C/Folic Acid 1 tab 1 tab DAILY ORAL 02/13/17 15:00 03/15/17 14:59 02/13/17 17:10 Zolpidem Tartrate (Ambien) 5 mg DAILYPRN PRN ORAL Insomnia 02/11/17 23:15 03/13/17 23:14 02/13/17 19:45 Allergies: Coded Allergies: No Known Allergies (Unverified , 06/06/12) Subjective reports SOB when off O2 on BIPAP no CP 2D echo shows severe MR, EF 55%, IVC dilated , Severe pulmonary w/ RSVP 62mmhg 12 pt ROS neg except above positives Objective Last Vital Signs Date Time Temp Pulse Resp B/P Pulse Ox O2 Delivery O2 Flow Rate FiO2 02/13/17 18:41 82 22 95 Facial 35 02/13/17 17:11 156/97 02/13/17 16:00 97.7 2.0 General Appearance: WD/WN, no apparent distress EENT: normal ENT inspection, TMs normal Neck: normal alignment, supple Cardiovascular: normal rate, regular rhythm Respiratory/Chest: lungs clear, normal breath sounds Abdomen: non tender, soft Extremities: normal range of motion, non-tender Edema: trace edema Neurologic: alert, responsive Laboratory Tests Test 02/13/17 03:40 Troponin I < 0.30 ng/mL (<=0.30) Intake and Output 02/12/17 02/13/17 19:00 07:00 Intake Total 220 ml Output Total 1700 ml Balance -1700 ml 220 ml Intake Oral 220 ml Hemodialysis UF 1700 ml Assessment/Plan Assessment/Plan ASSESSMENT: 1. Shortness of breath appeared to be secondary to pulmonary edema based on clinical examination in the emergency room however could also be secondary to pericardial effusion versus less likely angina equivalent. 2. Hypertension-uncontrolled. 3. End-stage renal disease, on hemodialysis. 4. Nicotine abuse. 5. History of non-sustained ventricular tachycardia/coronary artery disease status post percutaneous coronary intervention complicated by Josef syndrome/pericarditis. 6. Hepatitis C. 7. Anxiety. 8. Chronic diastolic dysfunction and heart failure with ejection fraction of 43%. 9. RVSP of 62mm Hg c/w w/ severe pulmonary hypertension 10. Pleural effusion bilaterally PLAN: 1. PCU 2. Hemodialysis per Renal 3. Resume home medications including colchicine for Pericarditis. 4. TTE reviewed showing preserved EF but Severe mitral regurg, severe pulm htn and pleural effusion 5. Pulmonary consult with Dr. Bonifacio Austin. 6. Renal consult with Dr. Amaya. 7. trop x 3 neg 8. Cards consult 9. Colchicine for pericarditis 10. Should have workup for Pulmonary HTN including RHC as outpatient when Euvolemic. ENRIQUE GATES M.D. Feb 13, 2017 20:23
[2017-02-13] MEDS ORDERED: Epogen (for ESRD on dialysis) SUBQ SCH (21:00)
[2017-02-13] MEDS: Tamsulosin 0.4mg cap ORAL SCH (21:11)
[2017-02-14] VITALS (7 sets, daily range): BP systolic 152–171; BP diastolic 78–98
[2017-02-14 04:52] LABS: BASOPHILS % (AUTO) 0.6 % (0.0-2.0); EOSINOPHILS % (AUTO) 2.7 % (0.0-3.0); LYMPHOCYTES % (AUTO) 18.1 % (20.0-45.0); MEAN CORPUSCULAR VOLUME 91 FL (80-99); MEAN PLATELET VOLUME 8.3 FL (6.5-10.1); MONOCYTES % (AUTO) 6.4 % (1.0-10.0); NEUTROPHILS % (AUTO) 72.2 % (45.0-75.0); PLATELET COUNT 228 K/UL (150-450); RED CELL DISTRIBUTION WIDTH 14.8 % (11.6-14.8)
[2017-02-14 05:19] LABS: CALCIUM 9.3 mg/dL (8.6-10.2); CREATININE 8.2 mg/dL (0.7-1.2); PHOSPHORUS 2.8 mg/dL (2.5-4.8)
[2017-02-14] MEDS: LORazepam 1mg tab ORAL PRN ×2 (05:19→18:38)
[2017-02-14] MEDS ORDERED: Heparin 5000 units/ml inj INJ SCH (06:00)
[2017-02-14] MEDS ORDERED: Heparin Sod 1000 units/ml 10ml IV SCH (06:00)
[2017-02-14] MEDS: DuoNeb 0.5-3(2.5)mg/3ml neb HHN SCH ×3 (07:11→22:43)
--- NOTE | 2017-02-14 10:52 | Cardiology Progress Note ---
Assessment/Plan Assessment/Plan dyspnea likely a combination of underdiagnosed copd and heart failure as well as effusion (maybe other etiologies as well with ext tobacco use) pleural effusion moderte MR pulm htn tobacco use disorder copd cad (s/p pci of director web of cx iwth repeat cath few day later showeign patent stent esrd on hemodialysis hep c history paradoxic increase in bp with dialysis likely uremia pericarditis (resolved) (i am not sure he had Josef syndrome he had no sig evidence fo acute mi on trops) ekg seem unchanged since [facility] and initial er ekg poor quality dose show irregular rhythm nto sure if artifact or pablo afib [facility] echo personally reviewed [facility] [place] personally reviewed no longer has pericardial effusion but has pleural effusion mr is not sever but moderate now was mild before on cedas[facility] images would consider ct of lance chest agree with more UF as bp allow aggressive treatmtn of htn norvasc adn coreg may need acei if ok with renal need treatment fo underlying copd as well extensive time required for review of this pat records !!! Objective Last 24 Hour Vital Signs Date Time Temp Pulse Resp B/P Pulse Ox O2 Delivery O2 Flow Rate FiO2 02/14/17 10:30 75 16 92 Nasal Cannula 2.0 28 02/14/17 10:30 75 16 92 Nasal Cannula 2.0 28 02/14/17 08:37 80 18 94 Facial 35 02/14/17 08:00 97.9 78 16 171/98 100 Bi-pap 35 02/14/17 07:55 Bi-pap 40 02/14/17 07:26 81 18 100 Bi-pap 15.0 35 02/14/17 07:14 85 21 93 Facial 35 02/14/17 07:13 85 28 93 Bi-pap 35 02/14/17 07:13 Bi-pap 02/14/17 07:13 93 Bi-pap 35 02/14/17 05:23 82 29 90 Facial 35 02/14/17 04:00 80 02/14/17 04:00 98.4 84 22 155/78 90 Bi-pap 35 02/14/17 03:20 89 21 99 Facial 35 02/14/17 00:53 98.0 74 16 152/84 100 Bi-pap 35 02/14/17 00:00 78 02/13/17 23:44 85 18 100 Bi-pap 2.0 02/13/17 23:24 82 28 98 Bi-pap 02/13/17 20:00 98.1 79 20 159/90 95 Bi-pap 02/13/17 20:00 79 02/13/17 18:41 82 22 95 Facial 35 02/13/17 18:41 Bi-pap 02/13/17 18:40 93 Bi-pap 35 02/13/17 17:11 79 156/97 02/13/17 17:11 156/97 02/13/17 16:00 97.7 80 18 156/97 98 Nasal Cannula 2.0 02/13/17 16:00 79 02/13/17 14:26 74 18 100 Nasal Cannula 2.0 02/13/17 14:12 74 20 98 Nasal Cannula 2.0 02/13/17 12:00 75 02/13/17 12:00 98.2 73 14 156/94 98 Bi-pap 35 02/13/17 11:05 82 15 96 Facial 35 Intake and Output 02/13/17 02/14/17 19:00 07:00 Intake Total 610 ml 250 ml Output Total 100 ml Balance 610 ml 150 ml Intake Oral 610 ml 250 ml Output Urine Total 100 ml Laboratory Tests Test 02/14/17 03:55 White Blood Count 10.0 K/UL (4.8-10.8) Red Blood Count 2.90 M/UL (4.70-6.10) L Hemoglobin 8.4 G/DL (14.2-18.0) L Hematocrit 26.3 % (42.0-52.0) L Mean Corpuscular Volume 91 FL (80-99) Mean Corpuscular Hemoglobin 29.0 PG (27.0-31.0) Mean Corpuscular Hemoglobin Concent 32.0 G/DL (32.0-36.0) Red Cell Distribution Width 14.8 % (11.6-14.8) Platelet Count 228 K/UL (150-450) Mean Platelet Volume 8.3 FL (6.5-10.1) Neutrophils (%) (Auto) 72.2 % (45.0-75.0) Lymphocytes (%) (Auto) 18.1 % (20.0-45.0) L Monocytes (%) (Auto) 6.4 % (1.0-10.0) Eosinophils (%) (Auto) 2.7 % (0.0-3.0) Basophils (%) (Auto) 0.6 % (0.0-2.0) Sodium Level 141 mEQ/L (135-145) Potassium Level 4.0 mEQ/L (3.4-4.9) Chloride Level 96 mEQ/L (98-107) L Carbon Dioxide Level 33 mEQ/L (20-30) H Anion Gap 12 (5-15) Blood Urea Nitrogen 38 mg/dL (7-23) H Creatinine 8.2 mg/dL (0.7-1.2) H Estimat Glomerular Filtration Rate 8.0 mL/min (>60) Glucose Level 97 mg/dL (74-106) Calcium Level 9.3 mg/dL (8.6-10.2) Phosphorus Level 2.8 mg/dL (2.5-4.8) Microbiology Date/Time Source Procedure Growth Status 02/12/17 01:07 Nasal Nares MRSA Culture - Final NO METHICILLIN RESISTANT STAPH AUREUS... Complete 02/12/17 01:07 Rectum VRE Culture - Final NO VANCOMYCIN RESISTANT ENTEROCOCCUS ... Complete SOLITARIO RUSSELL Feb 14, 2017 10:52
[2017-02-14] MEDS: Escitalopram Oxalate 5mg tab ORAL SCH (11:27)
[2017-02-14] MEDS: Propranolol 40mg tab ORAL SCH ×2 (11:29→18:25)
[2017-02-14] MEDS: traMADol 50mg tab ORAL PRN ×2 (11:30→22:56)
[2017-02-14] MEDS: Aspirin Baby 81mg ORAL SCH (11:31)
[2017-02-14] MEDS: Nephrovite tab ORAL SCH (11:31)
[2017-02-14] MEDS: ALPRAZolam 0.5mg tab ORAL PRN (11:31)
[2017-02-14] MEDS: Nitroglycerin 2% oint pkt TOPIC SCH ×2 (11:32→18:24)
[2017-02-14] MEDS: Lisinopril 20mg tab ORAL SCH (11:32)
--- NOTE | 2017-02-14 13:51 | Nephrology Progress Note ---
Assessment/Plan Problem List: (1) HTN (hypertension) (2) CAD (coronary artery disease) (3) ESRD (end stage renal disease) on dialysis (4) CHF (congestive heart failure) (5) Respiratory failure Plan HD on Thursday discussed with consultants US lungs Subjective Subjective pt has blood tinged sputum Objective Objective Last 24 Hour Vital Signs Date Time Temp Pulse Resp B/P Pulse Ox O2 Delivery O2 Flow Rate FiO2 02/14/17 12:00 91 02/14/17 12:00 97.5 87 20 158/86 94 Nasal Cannula 2.0 02/14/17 11:32 194/95 02/14/17 11:32 194/95 02/14/17 11:29 88 194/95 02/14/17 11:28 88 194/95 02/14/17 11:00 Nasal Cannula 2.0 02/14/17 10:30 75 16 92 Nasal Cannula 2.0 28 02/14/17 10:30 75 16 92 Nasal Cannula 2.0 28 02/14/17 08:37 80 18 94 Facial 35 02/14/17 08:00 75 02/14/17 08:00 97.9 78 16 171/98 100 Bi-pap 35 02/14/17 07:55 Bi-pap 40 02/14/17 07:26 81 18 100 Bi-pap 15.0 35 02/14/17 07:14 85 21 93 Facial 35 02/14/17 07:13 85 28 93 Bi-pap 35 02/14/17 07:13 Bi-pap 02/14/17 07:13 93 Bi-pap 35 02/14/17 05:23 82 29 90 Facial 35 02/14/17 04:00 80 02/14/17 04:00 98.4 84 22 155/78 90 Bi-pap 35 02/14/17 03:20 89 21 99 Facial 35 02/14/17 00:53 98.0 74 16 152/84 100 Bi-pap 35 02/14/17 00:00 78 02/13/17 23:44 85 18 100 Bi-pap 2.0 02/13/17 23:24 82 28 98 Bi-pap 02/13/17 20:00 98.1 79 20 159/90 95 Bi-pap 02/13/17 20:00 79 02/13/17 18:41 82 22 95 Facial 35 02/13/17 18:41 Bi-pap 02/13/17 18:40 93 Bi-pap 35 02/13/17 17:11 79 156/97 02/13/17 17:11 156/97 02/13/17 16:00 97.7 80 18 156/97 98 Nasal Cannula 2.0 02/13/17 16:00 79 02/13/17 14:26 74 18 100 Nasal Cannula 2.0 02/13/17 14:12 74 20 98 Nasal Cannula 2.0 Intake and Output 02/13/17 02/14/17 19:00 07:00 Intake Total 610 ml 250 ml Output Total 100 ml Balance 610 ml 150 ml Intake Oral 610 ml 250 ml Output Urine Total 100 ml Laboratory Tests 02/14/17 03:55: White Blood Count 10.0, Red Blood Count 2.90L, Hemoglobin 8.4L, Hematocrit 26.3L , Mean Corpuscular Volume 91, Mean Corpuscular Hemoglobin 29.0, Mean Corpuscular Hemoglobin Concent 32.0, Red Cell Distribution Width 14.8, Platelet Count 228, Mean Platelet Volume 8.3, Neutrophils (%) (Auto) 72.2, Lymphocytes (% ) (Auto) 18.1L, Monocytes (%) (Auto) 6.4, Eosinophils (%) (Auto) 2.7, Basophils (%) (Auto) 0.6, Sodium Level 141, Potassium Level 4.0, Chloride Level 96L, Carbon Dioxide Level 33H, Anion Gap 12, Blood Urea Nitrogen 38H, Creatinine 8.2H , Estimat Glomerular Filtration Rate 8.0, Glucose Level 97, Calcium Level 9.3, Phosphorus Level 2.8 Height (Feet): 5 Height (Inches): 11.00 Weight (Pounds): 180 Cardiovascular: normal rate Respiratory/Chest: lungs clear Extremities: other - no edema ALVIN HUTCHINS Feb 14, 2017 13:51
--- NOTE | 2017-02-14 17:42 | Pulmonology Progress Note ---
Assessment/Plan Assessment/Plan 1. Dyspnea with acute respiratory failure, multifactorial, improved 2. Congestive heart failure, systolic and diastolic with ejection fraction 46%. 3. Probable chronic obstructive pulmonary disease in a heavy cigarette smoker. 4. Coronary disease with recent stent placement. 5. Hypertension. 6. Anemia. 7. Hepatitis C. 8. End-stage renal disease, on hemodialysis with recent pericarditis. I suspect he has significant COPD needs PFT after dc advised to quit smoking cont HD/UF nebs bipap qhs and prn distress check ra sat watch io Subjective Constitutional: Reports: no symptoms HEENT: Repors: no symptoms Respiratory: Reports: shortness of breath Cardiovascular: Reports: no symptoms Gastrointestinal/Abdominal: Reports: no symptoms Genitourinary: Reports: no symptoms Neurologic: Reports: no symptoms Allergies: Coded Allergies: No Known Allergies (Unverified , 06/06/12) Subjective better today not using bipap no cp nv or bleeding toelrating po oob hd per renal Objective Last 24 Hour Vital Signs Date Time Temp Pulse Resp B/P Pulse Ox O2 Delivery O2 Flow Rate FiO2 02/14/17 16:00 98.1 83 22 152/87 93 Nasal Cannula 2.0 02/14/17 16:00 87 02/14/17 15:46 80 18 100 Nasal Cannula 2.0 02/14/17 15:37 73 20 92 Nasal Cannula 2.0 02/14/17 12:00 91 02/14/17 12:00 97.5 87 20 158/86 94 Nasal Cannula 2.0 02/14/17 11:32 194/95 02/14/17 11:32 194/95 02/14/17 11:29 88 194/95 02/14/17 11:28 88 194/95 02/14/17 11:00 Nasal Cannula 2.0 02/14/17 10:30 75 16 92 Nasal Cannula 2.0 28 02/14/17 10:30 75 16 92 Nasal Cannula 2.0 28 02/14/17 08:37 80 18 94 Facial 35 02/14/17 08:00 75 02/14/17 08:00 97.9 78 16 171/98 100 Bi-pap 35 02/14/17 07:55 Bi-pap 40 02/14/17 07:26 81 18 100 Bi-pap 15.0 35 02/14/17 07:14 85 21 93 Facial 35 02/14/17 07:13 85 28 93 Bi-pap 35 02/14/17 07:13 Bi-pap 02/14/17 07:13 93 Bi-pap 35 02/14/17 05:23 82 29 90 Facial 35 02/14/17 04:00 80 02/14/17 04:00 98.4 84 22 155/78 90 Bi-pap 35 02/14/17 03:20 89 21 99 Facial 35 02/14/17 00:53 98.0 74 16 152/84 100 Bi-pap 35 02/14/17 00:00 78 02/13/17 23:44 85 18 100 Bi-pap 2.0 02/13/17 23:24 82 28 98 Bi-pap 02/13/17 20:00 98.1 79 20 159/90 95 Bi-pap 02/13/17 20:00 79 02/13/17 18:41 82 22 95 Facial 35 02/13/17 18:41 Bi-pap 02/13/17 18:40 93 Bi-pap 35 Intake and Output 02/13/17 02/14/17 19:00 07:00 Intake Total 610 ml 250 ml Output Total 100 ml Balance 610 ml 150 ml Intake Oral 610 ml 250 ml Output Urine Total 100 ml General Appearance: cachetic HEENT: atraumatic, anicteric Respiratory/Chest: no respiratory distress, crackles/rales Cardiovascular: normal rate, regularly irregular Abdomen: normal bowel sounds, no organomegaly Extremities: no cyanosis Skin: no rash 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 Complete 02/12/17 01:07 Rectum VRE Culture - Final NO VANCOMYCIN RESISTANT ENTEROCOCCUS ... Complete Laboratory Tests 02/14/17 03:55: White Blood Count 10.0, Red Blood Count 2.90L, Hemoglobin 8.4L, Hematocrit 26.3L , Mean Corpuscular Volume 91, Mean Corpuscular Hemoglobin 29.0, Mean Corpuscular Hemoglobin Concent 32.0, Red Cell Distribution Width 14.8, Platelet Count 228, Mean Platelet Volume 8.3, Neutrophils (%) (Auto) 72.2, Lymphocytes (% ) (Auto) 18.1L, Monocytes (%) (Auto) 6.4, Eosinophils (%) (Auto) 2.7, Basophils (%) (Auto) 0.6, Sodium Level 141, Potassium Level 4.0, Chloride Level 96L, Carbon Dioxide Level 33H, Anion Gap 12, Blood Urea Nitrogen 38H, Creatinine 8.2H , Estimat Glomerular Filtration Rate 8.0, Glucose Level 97, Calcium Level 9.3, Phosphorus Level 2.8 Current Medications Medications (Trade) Dose Ordered Sig/Bisi Route PRN Reason Start Time Stop Time Status Last Admin Dose Admin Acetaminophen (Tylenol) 650 mg Q4H PRN ORAL Mild Pain (Pain Scale 1-3) 02/11/17 23:15 03/13/17 23:14 Albuterol Sulfate (Proventil MDI) 2 puff Q4H PRN INH Shortness of Breath 02/12/17 14:30 03/14/17 14:29 Albuterol/ Ipratropium (DuoNeb 0.5-3(2.5)mg/3ml) 3 ml EVERY 8 HOURS HHN 02/11/17 23:15 02/16/17 23:14 02/14/17 15:37 Alprazolam (Xanax) 0.5 mg Q6H PRN ORAL For Anxiety 02/12/17 14:00 02/19/17 13:59 02/14/17 11:31 Amlodipine Besylate (Norvasc) 10 mg DAILY ORAL 02/12/17 09:00 03/14/17 08:59 02/14/17 11:28 Aspirin (ASA) 81 mg DAILY ORAL 02/12/17 09:00 03/14/17 08:59 02/14/17 11:31 Atorvastatin Calcium (Lipitor) 10 mg BEDTIME ORAL 02/12/17 21:00 03/14/17 20:59 02/13/17 21:11 Clonidine HCl (Catapres) 0.1 mg TID PRN ORAL sbp>160 02/12/17 18:00 03/14/17 17:59 Clopidogrel Bisulfate (Plavix) 75 mg DAILY ORAL 02/12/17 14:00 03/14/17 13:59 02/14/17 11:35 Dextrose (Dextrose 50%) STAT PRN IV Hypoglycemia 02/11/17 23:15 03/13/17 23:14 Diphenhydramine HCl (Benadryl) 25 mg Q6H PRN ORAL Itching/Pruritis 02/11/17 23:15 03/13/17 23:14 Epoetin [place] (Procrit (for ESRD on dialysis)) 5,000 units THU-THU-THU SUBQ 02/13/17 21:00 03/15/17 20:59 02/13/17 21:12 Escitalopram Oxalate (Lexapro) 5 mg DAILY ORAL 02/13/17 09:00 03/15/17 08:59 02/14/17 11:27 Gabapentin (Neurontin) 100 mg THREE TIMES A DAY ORAL 02/12/17 18:00 03/14/17 17:59 02/14/17 13:23 Heparin Sodium (Porcine) (Heparin 5000 units/ml) 5,000 units POSTHD INJ 02/14/17 06:00 02/14/17 23:59 Heparin Sodium (Porcine) (Heparin Sod 1000 units/ml 10ml) 2,000 unit ONCE IV 02/14/17 06:00 02/14/17 23:59 02/14/17 09:03 Lisinopril (Prinivil) 20 mg DAILY ORAL 02/12/17 14:00 03/14/17 13:59 02/14/17 11:32 Lorazepam (Ativan) 1 mg THREE TIMES A DAY PRN ORAL For Anxiety 02/12/17 13:30 02/19/17 13:29 02/14/17 05:19 Nicotine (Nicoderm) 1 patch Q24H TDERMAL 02/12/17 17:00 03/14/17 16:59 02/13/17 17:12 Nitroglycerin (Nitro-Bid) 1 inch BID TOPIC 02/12/17 09:00 03/14/17 08:59 02/14/17 11:32 Propranolol HCl (Inderal) 40 mg BID ORAL 02/12/17 18:00 03/14/17 17:59 02/14/17 11:29 Sodium Chloride (Sodium Chloride 1000ml bag) 1,000 ml @ 500 mls/hr Q2H PRN IVLG sbp<90 during hd 02/14/17 06:00 02/14/17 23:59 Tamsulosin HCl (Flomax) 0.4 mg BEDTIME ORAL 02/12/17 21:00 03/14/17 20:59 02/13/17 21:11 Tiotropium [place] (Spiriva Inhaler) 1 puff DAILY INH 02/13/17 09:00 03/15/17 08:59 02/14/17 10:28 Tramadol HCl (Ultram) 50 mg Q6H PRN ORAL Moderate Pain (Pain Scale 4-6) 02/12/17 14:30 02/19/17 14:29 02/14/17 11:30 Vitamin B Complex/ Vit C/Folic Acid 1 tab 1 tab DAILY ORAL 02/13/17 15:00 03/15/17 14:59 02/14/17 11:31 Zolpidem Tartrate (Ambien) 5 mg DAILYPRN PRN ORAL Insomnia 02/11/17 23:15 03/13/17 23:14 02/13/17 19:45 PATTI MOORE DO Feb 14, 2017 17:42
[2017-02-14] MEDS: Tamsulosin 0.4mg cap ORAL SCH (21:11)
--- NOTE | 2017-02-14 22:16 | Consultation ---
DATE OF CONSULTATION: 02/14/2017 NOTE: INCOMPLETE DICTATION CARDIOLOGY CONSULTATION REFERRING PHYSICIAN: Dr. Piña. REASON FOR REFERRAL: Shortness of breath and mitral regurgitation. HISTORY OF PRESENT ILLNESS: This is a middle-aged gentleman, whose information is obtained from review of the [facility] record as well as from my discussion with the patient. He has a history of shortness of breath on several occasions for which hospitalization at [facility] has started back on 12/14/2016 with hospitalization with shortness of breath and congestive heart failure and at that time, he had several evaluations and cardiology evaluations and has undergone stress test for which we found some mild abnormality. Subsequently, he underwent a cardiac catheterization for persistent chest pain with 3% fixed defect. No reversible defect being found on nuclear medicine imaging. Cardiac catheterization on 01/15/2017 showed that the patient basically coronary disease with chronic total occlusion in the distal left circumflex artery in which aggressively drug-eluting stent was placed. The patient has tolerated that procedure well. He continues to have chest pains. He underwent repeat catheterization a few days later that showed left main to be normal 40 to 50% left atrial stenosis and circumflex artery had a stent that was patent at that time. 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 He tells me he had recurrent bouts of shortness of breath for which he was taken back to the emergency room at [facility] again on 01/23/2017 because of chest pains and it was opinion of the instrumentation and controls designer that was following him at that time that the pain is continued to be related to the pericardial effusion and the patient tells me that he each time, he would et dialysis to which he would respond when he would go home and have less shortness of breath, but subsequently will have recurrent shortness of breath and that would cause him to come back. Over the past 2 to 3 dialysis sessions, he is noticed that towards the end of the dialysis session approximately 40 minutes, he developed some shortness of breath as well as the pain in the chest so severe that he had to cut down the dialysis session and this lasted about 40 minutes and suddenly he got short of breath and he called the paramedics and he was brought to the emergency room. His main issue is shortness of breath. He has 2 to 3 pillow orthopnea. He does have dyspnea on exertion. He had chest pain he describes as pressure only at the end of dialysis, not when he walks around at home and these episodes last about two to three hours. He has no palpitations. PAST MEDICAL HISTORY: His past medical history is positive for end-stage renal disease, being on dialysis and hypertension. 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 That can be difficult to control in fact, his blood pressure has been increasing with dialysis session paradoxically. He has no diabetes. No cancer, no stroke, hepatitis, or tuberculosis. He may have been told he has COPD, but is not sure about that. He has end-stage renal disease, on dialysis. No liver problems. Although, previously some parts of the chart at [facility] indicated a history of possible hepatitis C. No thyroid disease. No HIV or AIDS ALLERGIES: He is not allergic to any medications. SOCIAL HISTORY: He used to drink alcoholic beverages, but he quit many years ago. He used to use drugs, but he quit 40 years ago. He still smokes despite the recommendations. REVIEW OF SYSTEMS: Gastrointestinal: He has had some bouts of diarrhea, but that has resolved. Genitourinary: He still makes some urine. He is on dialysis 3 times a week, four hours each time. Pulmonary: He does have cough and occasional wheezing, coughing up some blood-tinged sputum. Constitutional: There is no reports of any fevers or chills at this time, but he has had them before. Neurologic: Negative. PHYSICAL EXAMINATION: GENERAL: Shows to be elderly middle-aged gentleman, on the dialysis machine at the present time. NECK: Supple. No jugular venous distention. LUNGS: Showed decreased breath sounds bilaterally. He does have some crackles on the left base. CARDIAC: Regular rhythm. Ectopies are noted. Faint systolic murmur is noted. There is no RV lift. No heaves, thrills, or gallops noted. ABDOMEN: Soft and nontender. Positive bowel sounds. EXTREMITIES: Showed no clubbing, no cyanosis, nor is there any edema. NEUROLOGIC: He is awake, alert, and responsive and he moves all four extremities. LABORATORY AND DIAGNOSTIC DATA: His white count is 10, hemoglobin 8.4, and platelet count of 228,000. His sodium is 141, potassium 4.0, chloride 96, bicarbonate 33, BUN of 38, creatinine 8.2, and glucose of 97. His A1c was 4.4 yesterday. Three sets of cardiac enzymes are all negative. His ProBNP was 63,000. His magnesium of 1.8. Total cholesterol was 91 with a LDL of 41 and HDL of 39. TSH of 1.97. Chest x-ray performed here shows no acute processes. An echocardiogram was performed here, which I personally reviewed, wall motion appears to be adequate specifically and the lateral wall function appears to be normal. He does have probably a moderate amount of mitral regurgitation and does have some pulmonary hypertension, IVC is about 2.4 cm. There is no significant pericardial effusion, but there is a large pleural effusion noted on the left side. His echocardiogram was also reviewed at least partially from [employer] system, this clearly did have at least moderate pericardial effusion at that time and his mitral regurgitation appeared to be mild degree at that time as well. Ge Hernandez M.D. DR: HUGH JOB#: [id number] CC:
[2017-02-15] VITALS (7 sets, daily range): BP systolic 143–154; BP diastolic 79–91
[2017-02-15] MEDS ORDERED: DuoNeb 0.5-3(2.5)mg/3ml neb HHN SCH (08:00)
[2017-02-15] MEDS: Escitalopram Oxalate 5mg tab ORAL SCH (09:33)
[2017-02-15] MEDS: Aspirin Baby 81mg ORAL SCH (09:33)
[2017-02-15] MEDS: Nephrovite tab ORAL SCH (09:34)
[2017-02-15] MEDS: Propranolol 40mg tab ORAL SCH ×2 (09:34→17:36)
[2017-02-15] MEDS: Nitroglycerin 2% oint pkt TOPIC SCH ×2 (09:35→17:36)
[2017-02-15] MEDS: Lisinopril 20mg tab ORAL SCH (09:35)
[2017-02-15] MEDS: traMADol 50mg tab ORAL PRN ×2 (09:57→23:00)
[2017-02-15] MEDS: ALPRAZolam 0.5mg tab ORAL PRN ×2 (09:57→18:14)
[2017-02-15] MEDS ORDERED: Albuterol 90mcg Inhaler 8gm INH PRN (10:30)
--- NOTE | 2017-02-15 12:25 | Cardiology Progress Note ---
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 iwth repeat cath few day later showeign patent stent esrd on hemodialysis hep c history paradoxic increase in bp with dialysis likely uremia pericarditis (resolved) (i am not sure he had Josef syndrome he had no sig evidence fo acute mi on trops) ekg seem unchanged since [facility] and initial er ekg poor quality dose show irregular rhythm nto sure if artifact or afib no recurrence on tele [facility] echo personally reviewed [facility] echo personally reviewed no longer has pericardial effusion but has pleural effusion mr is not sever but moderate now was mild before on [facility] images ct report form [facility] reviewed agree with more UF as bp allow aggressive treatmtn of htn norvasc adn coreg may need acei if ok with renal need treatment fo underlying copd as well u/s of chest to see if sig enough fluid to need removal d/w dr anay guardado d/w pt the finding of so far performed tests Subjective Cardiovascular: Denies: chest pain, lightheadedness Respiratory: Reports: shortness of breath - better , did no have to user sbipap he says Gastrointestinal/Abdominal: Denies: abdomen distended Genitourinary: Denies: burning Objective Last 24 Hour Vital Signs Date Time Temp Pulse Resp B/P Pulse Ox O2 Delivery O2 Flow Rate FiO2 02/15/17 11:33 98.1 78 18 150/89 94 Room Air 02/15/17 10:56 97.7 02/15/17 09:35 154/79 02/15/17 09:35 154/79 02/15/17 09:34 70 154/79 02/15/17 09:34 70 154/79 02/15/17 08:00 80 02/15/17 07:57 97.7 70 20 154/79 100 Nasal Cannula 3.0 02/15/17 07:03 99 Nasal Cannula 3.0 02/15/17 07:03 Nasal Cannula 3.0 02/15/17 04:00 72 02/15/17 04:00 98.0 76 24 149/85 99 Nasal Cannula 4.0 02/15/17 00:00 77 02/15/17 00:00 98.0 82 20 151/85 98 Nasal Cannula 2.0 02/14/17 23:55 98.4 02/14/17 22:53 74 13 100 Bi-pap 35 02/14/17 22:49 74 14 99 Facial 35 02/14/17 22:44 76 18 98 Bi-pap 2.0 35 02/14/17 21:17 78 17 94 Facial 35 02/14/17 20:00 98.4 77 24 152/89 98 Nasal Cannula 2.0 02/14/17 19:20 93 Bi-pap 35 02/14/17 19:20 Bi-pap 02/14/17 19:16 84 02/14/17 18:25 85 151/101 02/14/17 18:24 151/101 02/14/17 16:00 98.1 83 22 152/87 93 Nasal Cannula 2.0 02/14/17 16:00 87 02/14/17 15:46 80 18 100 Nasal Cannula 2.0 28 02/14/17 15:37 73 20 92 Nasal Cannula 2.0 28 General Appearance: alert Neck: supple Cardiovascular: normal rate, regular rhythm Respiratory/Chest: decreased breath sounds Abdomen: normal bowel sounds, non tender, soft Extremities: no swelling Intake and Output 02/14/17 02/15/17 19:00 07:00 Intake Total 400 ml 200 ml Output Total 3350 ml Balance -2950 ml 200 ml Intake Oral 400 ml 200 ml Hemodialysis UF 3350 ml SOLITARIO RUSSELL Feb 15, 2017 12:25
[2017-02-15] MEDS: DuoNeb 0.5-3(2.5)mg/3ml neb HHN SCH ×2 (14:56→22:16)
--- NOTE | 2017-02-15 16:25 | Pulmonology Progress Note ---
Assessment/Plan Assessment/Plan 1. Dyspnea with acute respiratory failure, multifactorial, improved 2. Congestive heart failure, systolic and diastolic with ejection fraction 46%. 3. Probable chronic obstructive pulmonary disease in a heavy cigarette smoker. 4. Coronary disease with recent stent placement. 5. Hypertension. 6. Anemia. 7. Hepatitis C. 8. End-stage renal disease, on hemodialysis with recent pericarditis. needs PFT after dc advised to quit smoking cont HD/UF nebs bipap qhs and prn distress check ra sat watch io better today Subjective Constitutional: Reports: no symptoms HEENT: Repors: no symptoms Respiratory: Reports: no symptoms Cardiovascular: Reports: no symptoms Gastrointestinal/Abdominal: Reports: no symptoms Genitourinary: Reports: no symptoms Allergies: Coded Allergies: No Known Allergies (Unverified , 06/06/12) Subjective continues to improve still not using bipap no cp nv or bleeding tolerating po oob hd per renal and negative fluid balanced Objective Last 24 Hour Vital Signs Date Time Temp Pulse Resp B/P Pulse Ox O2 Delivery O2 Flow Rate FiO2 02/15/17 15:44 98.1 53 20 143/79 100 Nasal Cannula 2.0 02/15/17 15:08 74 20 99 Nasal Cannula 2.0 02/15/17 14:57 74 100 3.0 02/15/17 13:13 84 16 Nasal Cannula 3.0 02/15/17 13:12 84 16 96 Nasal Cannula 3.0 02/15/17 12:00 79 02/15/17 11:33 98.1 78 18 150/89 94 Room Air 02/15/17 10:56 97.7 02/15/17 09:35 154/79 02/15/17 09:35 154/79 02/15/17 09:34 70 154/79 02/15/17 09:34 70 154/79 02/15/17 08:00 80 02/15/17 07:57 97.7 70 20 154/79 100 Nasal Cannula 3.0 02/15/17 07:03 99 Nasal Cannula 3.0 02/15/17 07:03 Nasal Cannula 3.0 02/15/17 04:00 72 02/15/17 04:00 98.0 76 24 149/85 99 Nasal Cannula 4.0 02/15/17 00:00 77 02/15/17 00:00 98.0 82 20 151/85 98 Nasal Cannula 2.0 02/14/17 23:55 98.4 02/14/17 22:53 74 13 100 Bi-pap 35 02/14/17 22:49 74 14 99 Facial 35 02/14/17 22:44 76 18 98 Bi-pap 2.0 35 02/14/17 21:17 78 17 94 Facial 35 02/14/17 20:00 98.4 77 24 152/89 98 Nasal Cannula 2.0 02/14/17 19:20 93 Bi-pap 35 02/14/17 19:20 Bi-pap 02/14/17 19:16 84 02/14/17 18:25 85 151/101 02/14/17 18:24 151/101 Intake and Output 02/14/17 02/15/17 19:00 07:00 Intake Total 400 ml 200 ml Output Total 3350 ml Balance -2950 ml 200 ml Intake Oral 400 ml 200 ml Hemodialysis UF 3350 ml General Appearance: WD/WN HEENT: atraumatic, anicteric Respiratory/Chest: crackles/rales Cardiovascular: regular rhythm Abdomen: soft, non tender, no organomegaly Extremities: no cyanosis, no clubbing Skin: no lesions, no ulcers 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, no motor/sensory deficits, oriented x 3 Current Medications Medications (Trade) Dose Ordered Sig/Bisi Route PRN Reason Start Time Stop Time Status Last Admin Dose Admin Acetaminophen (Tylenol) 650 mg Q4H PRN ORAL Mild Pain (Pain Scale 1-3) 02/15/17 07:15 03/17/17 07:14 Albuterol Sulfate (Proventil MDI) 2 puff Q4H PRN INH Shortness of Breath 02/15/17 10:30 03/17/17 10:29 Albuterol/ Ipratropium (DuoNeb 0.5-3(2.5)mg/3ml) 3 ml Q8HRT HHN 02/15/17 15:00 02/20/17 14:59 02/15/17 14:56 Alprazolam (Xanax) 0.5 mg Q6H PRN ORAL For Anxiety 02/15/17 08:00 02/22/17 07:59 02/15/17 09:57 Amlodipine Besylate (Norvasc) 10 mg DAILY ORAL 02/15/17 09:00 03/17/17 08:59 02/15/17 09:34 Aspirin (ASA) 81 mg DAILY ORAL 02/15/17 09:00 03/17/17 08:59 02/15/17 09:33 Atorvastatin Calcium (Lipitor) 10 mg BEDTIME ORAL 02/15/17 21:00 03/17/17 20:59 Clonidine HCl (Catapres) 0.1 mg TID PRN ORAL sbp>160 02/15/17 09:00 03/17/17 08:59 Clopidogrel Bisulfate (Plavix) 75 mg DAILY ORAL 02/15/17 09:00 03/17/17 08:59 02/15/17 09:34 Dextrose (Dextrose 50%) STAT PRN IV Hypoglycemia 02/15/17 23:15 03/17/17 23:14 Diphenhydramine HCl (Benadryl) 25 mg Q6H PRN ORAL Itching/Pruritis 02/15/17 11:15 03/17/17 11:14 Epoetin Zurdo (Procrit (for ESRD on dialysis)) 5,000 units THU-THU-THU SUBQ 02/16/17 21:00 03/18/17 20:59 Escitalopram Oxalate (Lexapro) 5 mg DAILY ORAL 02/15/17 09:00 03/17/17 08:59 02/15/17 09:33 Gabapentin (Neurontin) 100 mg THREE TIMES A DAY ORAL 02/15/17 09:00 03/17/17 08:59 02/15/17 14:05 Lisinopril (Prinivil) 20 mg DAILY ORAL 02/15/17 09:00 03/17/17 08:59 02/15/17 09:35 Lorazepam (Ativan) 1 mg THREE TIMES A DAY PRN ORAL For Anxiety 02/15/17 09:00 02/22/17 08:59 Nicotine (Nicoderm) 1 patch Q24H TDERMAL 02/15/17 17:00 03/17/17 16:59 Nitroglycerin (Nitro-Bid) 1 inch BID TOPIC 02/15/17 09:00 03/17/17 08:59 02/15/17 09:35 Propranolol HCl (Inderal) 40 mg BID ORAL 02/15/17 09:00 03/17/17 08:59 02/15/17 09:34 Tamsulosin HCl (Flomax) 0.4 mg BEDTIME ORAL 02/15/17 21:00 03/17/17 20:59 Tiotropium [place] (Spiriva Inhaler) 1 puff DAILY INH 02/15/17 09:00 03/17/17 08:59 02/15/17 11:53 Tramadol HCl (Ultram) 50 mg Q6H PRN ORAL Moderate Pain (Pain Scale 4-6) 02/15/17 08:30 02/22/17 08:29 02/15/17 09:57 Vitamin B Complex/ Vit C/Folic Acid (Nephrovite) 1 tab DAILY ORAL 02/15/17 09:00 03/17/17 08:59 02/15/17 09:34 Zolpidem Tartrate (Ambien) 5 mg DAILYPRN PRN ORAL Insomnia 02/15/17 23:15 03/17/17 23:14 PATTI MOORE DO Feb 15, 2017 16:25
--- NOTE | 2017-02-15 18:37 | Nephrology Progress Note ---
Assessment/Plan Problem List: (1) HTN (hypertension) (2) CAD (coronary artery disease) (3) ESRD (end stage renal disease) on dialysis (4) CHF (congestive heart failure) (5) Respiratory failure Plan HD on Thursday sputum for culture Discussed with Pulm Subjective Subjective feel better Objective Objective Last 24 Hour Vital Signs Date Time Temp Pulse Resp B/P Pulse Ox O2 Delivery O2 Flow Rate FiO2 02/15/17 17:36 74 143/79 02/15/17 17:36 143/79 02/15/17 16:00 74 02/15/17 15:44 98.1 53 20 143/79 100 Nasal Cannula 2.0 02/15/17 15:08 74 20 99 Nasal Cannula 2.0 02/15/17 14:57 74 100 3.0 02/15/17 13:13 84 16 Nasal Cannula 3.0 02/15/17 13:12 84 16 96 Nasal Cannula 3.0 02/15/17 12:00 79 02/15/17 11:33 98.1 78 18 150/89 94 Room Air 02/15/17 10:56 97.7 02/15/17 09:35 154/79 02/15/17 09:35 154/79 02/15/17 09:34 70 154/79 02/15/17 09:34 70 154/79 02/15/17 08:00 80 02/15/17 07:57 97.7 70 20 154/79 100 Nasal Cannula 3.0 02/15/17 07:03 99 Nasal Cannula 3.0 02/15/17 07:03 Nasal Cannula 3.0 02/15/17 04:00 72 02/15/17 04:00 98.0 76 24 149/85 99 Nasal Cannula 4.0 02/15/17 00:00 77 02/15/17 00:00 98.0 82 20 151/85 98 Nasal Cannula 2.0 02/14/17 23:55 98.4 02/14/17 22:53 74 13 100 Bi-pap 35 02/14/17 22:49 74 14 99 Facial 35 02/14/17 22:44 76 18 98 Bi-pap 2.0 35 02/14/17 21:17 78 17 94 Facial 35 02/14/17 20:00 98.4 77 24 152/89 98 Nasal Cannula 2.0 02/14/17 19:20 93 Bi-pap 35 02/14/17 19:20 Bi-pap 02/14/17 19:16 84 Intake and Output 02/14/17 02/15/17 19:00 07:00 Intake Total 400 ml 200 ml Output Total 3350 ml Balance -2950 ml 200 ml Intake Oral 400 ml 200 ml Hemodialysis UF 3350 ml Height (Feet): 5 Height (Inches): 11.00 Weight (Pounds): 180 Cardiovascular: normal rate Respiratory/Chest: rhonchi - bilaterally Extremities: moderate edema ALVIN HUTCHINS Feb 15, 2017 18:37
[2017-02-15] MEDS: Tamsulosin 0.4mg cap ORAL SCH (21:30)
[2017-02-15] MEDS ORDERED: Zolpidem 5mg tab ORAL PRN (23:15)
[2017-02-16 03:59] VITALS: BP 152/89
[2017-02-16] MEDS ORDERED: Heparin Sod 1000 units/ml 10ml IV PRN (06:00)
[2017-02-16] MEDS: DuoNeb 0.5-3(2.5)mg/3ml neb HHN SCH ×3 (07:38→23:00)
[2017-02-16 08:04] VITALS: BP 140/78
[2017-02-16 08:46] LABS: BASOPHILS % (AUTO) 0.7 % (0.0-2.0); EOSINOPHILS % (AUTO) 8.6 % (0.0-3.0); LYMPHOCYTES % (AUTO) 33.2 % (20.0-45.0); MEAN CORPUSCULAR HEMOGLOBIN 28.6 PG (27.0-31.0); MEAN CORPUSCULAR HGB CONC 32.2 G/DL (32.0-36.0); MEAN CORPUSCULAR VOLUME 89 FL (80-99); MEAN PLATELET VOLUME 7.6 FL (6.5-10.1); MONOCYTES % (AUTO) 7.7 % (1.0-10.0); NEUTROPHILS % (AUTO) 49.8 % (45.0-75.0); PLATELET COUNT 226 K/UL (150-450); RED BLOOD COUNT 3.11 M/UL (4.70-6.10); RED CELL DISTRIBUTION WIDTH 14.9 % (11.6-14.8); WHITE BLOOD COUNT 5.7 K/UL (4.8-10.8)
[2017-02-16 08:52] LABS: CALCIUM 9.2 mg/dL (8.6-10.2); CREATININE 9.5 mg/dL (0.7-1.2); GLOMERULAR FILTRATION RATE 6.8 mL/min (>60); POTASSIUM 3.6 mEQ/L (3.4-4.9)
--- NOTE | 2017-02-16 09:31 | Cardiology Report ---
APPROVED REPORT EXAM: Two-dimensional and M-mode echocardiogram with Doppler and color Doppler. INDICATION Shortness of breath M-Mode DIMENSIONS IVSd1.1 (0.7-1.1cm)Left Atrium (MM)3.9 (1.6-4.0cm) LVDd5.5 (3.5-5.6cm)Aortic Root3.4 (2.0-3.7cm) PWd0.8 (0.7-1.1cm)Aortic Cusp Exc.2.2 (1.5-2.0cm) LVDs3.7 (2.5-4.0cm) PWs1.3 cm Mild left ventricular enlargement by 2D. Normal left ventricular systolic function and wall motion. Left ventricular ejection fraction estimated to be 55 %. No evidence of ventricular hypertrophy. Large pleural effusion. Fibrin noted in posterior pleural effusion. Mild bi-atrial enlargement. Mild right ventricular enlargement. Mild focal aortic valve sclerosis with adequate cusp excursion. Mildly thickened mitral valve leaflets with normal excursion. Mild mitral annulus and aortic root calcification. Normal pulmonic valve structure. Normal tricuspid valve structure. IVC dilated at 2.4 cm with minimal physiologic collapse, estimated RAP is 15 mmHg. A color flow and spectral Doppler study was performed and revealed: No aortic regurgitation. Severe mitral regurgitation. Mitral inflow velocities indicates possible pseudo normalization pattern implying significant left ventricular diastolic dysfunction (Grade II). Mild to moderate tricuspid regurgitation. Tricuspid systolic velocities suggests peak right ventricular systolic pressure of 62 mmHg, consistent with severe plumonary hypertension. No pulmonic regurgitation present.
[2017-02-16] MEDS: Nitroglycerin 2% oint pkt TOPIC SCH ×2 (09:32→17:55)
[2017-02-16] MEDS: Lisinopril 20mg tab ORAL SCH ×2 (09:32→21:55)
[2017-02-16] MEDS: Nephrovite tab ORAL SCH (09:32)
[2017-02-16] MEDS: Propranolol 40mg tab ORAL SCH ×2 (09:33→17:55)
[2017-02-16] MEDS: Aspirin Baby 81mg ORAL SCH (09:33)
[2017-02-16] MEDS: Escitalopram Oxalate 5mg tab ORAL SCH (09:33)
[2017-02-16 11:19] VITALS: BP 158/97
--- NOTE | 2017-02-16 11:35 | Cardiology Progress Note ---
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 [employer] iwth repeat cath few day later showing patent stent esrd on hemodialysis hep c history paradoxic increase in bp with dialysis likely uremia pericarditis (resolved) (i am not sure he had Josef syndrome he had no sig evidence fo acute mi on trops) [facility] ekg poor quality dose show irregular rhythm nto sure if artifact or afib no recurrence on tele [facility] echo has been personally reviewed [facility] echo has been personally reviewed no longer has pericardial effusion but has pleural effusion mr ( is not sever but moderate now) was mild before on [facility] images ct report form [facility] reviewed agree with more UF as bp allow aggressive treatment of htn norvasc adn coreg increase acei need treatment fo underlying copd as well u/s of chest to see if sig enough fluid to need removal is just starting on dialysis , he request to go back on bipap will dc propranolol (with copd) use coreg he was receiving before Subjective Cardiovascular: Denies: chest pain, lightheadedness Respiratory: Reports: SOB with excertion, shortness of breath Gastrointestinal/Abdominal: Denies: abdominal pain Genitourinary: Denies: burning Objective Last 24 Hour Vital Signs Date Time Temp Pulse Resp B/P Pulse Ox O2 Delivery O2 Flow Rate FiO2 02/16/17 11:19 98.3 81 20 158/97 90 Room Air 02/16/17 09:59 75 18 95 Nasal Cannula 3.0 32 02/16/17 09:33 79 140/78 02/16/17 09:32 140/78 02/16/17 09:32 140/78 02/16/17 09:32 79 140/78 02/16/17 08:04 98.1 79 20 140/78 98 Room Air 02/16/17 07:49 76 18 98 Nasal Cannula 2.0 02/16/17 07:38 Nasal Cannula 2.0 02/16/17 07:38 98 Nasal Cannula 2.0 02/16/17 07:38 76 18 98 Nasal Cannula 2.0 02/16/17 04:57 72 18 96 Facial 30 02/16/17 04:00 76 02/16/17 03:59 98.1 79 20 152/89 97 Nasal Cannula 02/16/17 00:18 98.2 02/16/17 00:00 79 02/15/17 23:53 98.2 77 21 148/91 94 Room Air 02/15/17 22:21 78 20 96 Nasal Cannula 3.0 32 02/15/17 22:17 75 20 92 Nasal Cannula 3.0 32 02/15/17 20:22 98.6 79 20 149/88 90 Nasal Cannula 02/15/17 20:00 76 02/15/17 19:30 Nasal Cannula 2.0 28 02/15/17 19:30 98 Nasal Cannula 2.0 28 02/15/17 17:36 74 143/79 02/15/17 17:36 143/79 02/15/17 16:00 74 02/15/17 15:44 98.1 53 20 143/79 100 Nasal Cannula 2.0 02/15/17 15:08 74 20 99 Nasal Cannula 2.0 02/15/17 14:57 74 100 3.0 02/15/17 13:13 84 16 Nasal Cannula 3.0 02/15/17 13:12 84 16 96 Nasal Cannula 3.0 02/15/17 12:00 79 02/15/17 11:33 98.1 78 18 150/89 94 Room Air General Appearance: no apparent distress, alert Cardiovascular: normal rate, regular rhythm Respiratory/Chest: decreased breath sounds Abdomen: normal bowel sounds, non tender, soft Extremities: no swelling Intake and Output 02/15/17 02/16/17 19:00 07:00 Intake Total 590 ml Output Total 125 ml Balance 465 ml Intake Oral 590 ml Output Urine Total 125 ml Laboratory Tests Test 02/16/17 08:10 White Blood Count 5.7 K/UL (4.8-10.8) Red Blood Count 3.11 M/UL (4.70-6.10) L Hemoglobin 8.9 G/DL (14.2-18.0) L Hematocrit 27.6 % (42.0-52.0) L Mean Corpuscular Volume 89 FL (80-99) Mean Corpuscular Hemoglobin 28.6 PG (27.0-31.0) Mean Corpuscular Hemoglobin Concent 32.2 G/DL (32.0-36.0) Red Cell Distribution Width 14.9 % (11.6-14.8) H Platelet Count 226 K/UL (150-450) Mean Platelet Volume 7.6 FL (6.5-10.1) Neutrophils (%) (Auto) 49.8 % (45.0-75.0) Lymphocytes (%) (Auto) 33.2 % (20.0-45.0) Monocytes (%) (Auto) 7.7 % (1.0-10.0) Eosinophils (%) (Auto) 8.6 % (0.0-3.0) H Basophils (%) (Auto) 0.7 % (0.0-2.0) Sodium Level 139 mEQ/L (135-145) Potassium Level 3.6 mEQ/L (3.4-4.9) Chloride Level 92 mEQ/L (98-107) L Carbon Dioxide Level 35 mEQ/L (20-30) H Anion Gap 12 (5-15) Blood Urea Nitrogen 50 mg/dL (7-23) H Creatinine 9.5 mg/dL (0.7-1.2) H Estimat Glomerular Filtration Rate 6.8 mL/min (>60) Glucose Level 119 mg/dL (74-106) H Calcium Level 9.2 mg/dL (8.6-10.2) Phosphorus Level 3.8 mg/dL (2.5-4.8) SOLITARIO RUSSELL Feb 16, 2017 11:35
--- NOTE | 2017-02-16 12:44 | Nephrology Progress Note ---
Assessment/Plan Problem List: (1) HTN (hypertension) (2) CAD (coronary artery disease) (3) ESRD (end stage renal disease) on dialysis (4) CHF (congestive heart failure) (5) Respiratory failure Plan HD as tolerated sputum for culture Discussed with Pulm. start Abxs Subjective Subjective Pt was seen on dialysis Objective Objective Last 24 Hour Vital Signs Date Time Temp Pulse Resp B/P Pulse Ox O2 Delivery O2 Flow Rate FiO2 02/16/17 11:30 80 22 97 Facial 30 02/16/17 11:19 98.3 81 20 158/97 90 Room Air 02/16/17 09:59 75 18 95 Nasal Cannula 3.0 32 02/16/17 09:33 79 140/78 02/16/17 09:32 140/78 02/16/17 09:32 140/78 02/16/17 09:32 79 140/78 02/16/17 08:04 98.1 79 20 140/78 98 Room Air 02/16/17 07:49 76 18 98 Nasal Cannula 2.0 02/16/17 07:38 Nasal Cannula 2.0 02/16/17 07:38 98 Nasal Cannula 2.0 02/16/17 07:38 76 18 98 Nasal Cannula 2.0 02/16/17 04:57 72 18 96 Facial 30 02/16/17 04:00 76 02/16/17 03:59 98.1 79 20 152/89 97 Nasal Cannula 02/16/17 00:18 98.2 02/16/17 00:00 79 02/15/17 23:53 98.2 77 21 148/91 94 Room Air 02/15/17 22:21 78 20 96 Nasal Cannula 3.0 32 02/15/17 22:17 75 20 92 Nasal Cannula 3.0 32 02/15/17 20:22 98.6 79 20 149/88 90 Nasal Cannula 02/15/17 20:00 76 02/15/17 19:30 Nasal Cannula 2.0 28 02/15/17 19:30 98 Nasal Cannula 2.0 28 02/15/17 17:36 74 143/79 02/15/17 17:36 143/79 02/15/17 16:00 74 02/15/17 15:44 98.1 53 20 143/79 100 Nasal Cannula 2.0 02/15/17 15:08 74 20 99 Nasal Cannula 2.0 02/15/17 14:57 74 100 3.0 02/15/17 13:13 84 16 Nasal Cannula 3.0 02/15/17 13:12 84 16 96 Nasal Cannula 3.0 Intake and Output 02/15/17 02/16/17 19:00 07:00 Intake Total 590 ml Output Total 125 ml Balance 465 ml Intake Oral 590 ml Output Urine Total 125 ml Laboratory Tests 02/16/17 08:10: White Blood Count 5.7, Red Blood Count 3.11L, Hemoglobin 8.9L, Hematocrit 27.6L , Mean Corpuscular Volume 89, Mean Corpuscular Hemoglobin 28.6, Mean Corpuscular Hemoglobin Concent 32.2, Red Cell Distribution Width 14.9H, Platelet Count 226, Mean Platelet Volume 7.6, Neutrophils (%) (Auto) 49.8, Lymphocytes (%) (Auto) 33.2, Monocytes (%) (Auto) 7.7, Eosinophils (%) (Auto) 8.6H, Basophils (%) (Auto) 0.7, Sodium Level 139, Potassium Level 3.6, Chloride Level 92L, Carbon Dioxide Level 35H, Anion Gap 12, Blood Urea Nitrogen 50H, Creatinine 9.5H, Estimat Glomerular Filtration Rate 6.8, Glucose Level 119H, Calcium Level 9.2, Phosphorus Level 3.8 Height (Feet): 5 Height (Inches): 11.00 Weight (Pounds): 180 Cardiovascular: normal rate Respiratory/Chest: rhonchi - bilaterally Abdomen: soft Extremities: trace edema ALVIN HUTCHINS Feb 16, 2017 12:44
--- NOTE | 2017-02-16 13:05 | Pulmonology Progress Note ---
Assessment/Plan Assessment/Plan 1. Dyspnea with acute respiratory failure, multifactorial, improved 2. Congestive heart failure, systolic and diastolic with ejection fraction 46%. 3. Probable chronic obstructive pulmonary disease in a heavy cigarette smoker. 4. Coronary disease with recent stent placement. 5. Hypertension. 6. Anemia. 7. Hepatitis C. 8. End-stage renal disease, on hemodialysis with recent pericarditis. still feels SOB using BiPAP now on HD blood tinged sputum resolved disc w Dr Amaya add zithromax and prednisone Subjective Respiratory: Reports: dyspnea at rest, shortness of breath, Denies: hemoptysis - resolved Allergies: Coded Allergies: No Known Allergies (Unverified , 06/06/12) Objective Last 24 Hour Vital Signs Date Time Temp Pulse Resp B/P Pulse Ox O2 Delivery O2 Flow Rate FiO2 02/16/17 11:40 Bi-pap 3.0 30 02/16/17 11:30 80 22 97 Facial 30 02/16/17 11:19 98.3 81 20 158/97 90 Room Air 02/16/17 09:59 75 18 95 Nasal Cannula 3.0 32 02/16/17 09:33 79 140/78 02/16/17 09:32 140/78 02/16/17 09:32 140/78 02/16/17 09:32 79 140/78 02/16/17 08:04 98.1 79 20 140/78 98 Room Air 02/16/17 07:49 76 18 98 Nasal Cannula 2.0 02/16/17 07:38 Nasal Cannula 2.0 02/16/17 07:38 98 Nasal Cannula 2.0 02/16/17 07:38 76 18 98 Nasal Cannula 2.0 02/16/17 04:57 72 18 96 Facial 30 02/16/17 04:00 76 02/16/17 03:59 98.1 79 20 152/89 97 Nasal Cannula 02/16/17 00:18 98.2 02/16/17 00:00 79 02/15/17 23:53 98.2 77 21 148/91 94 Room Air 02/15/17 22:21 78 20 96 Nasal Cannula 3.0 32 02/15/17 22:17 75 20 92 Nasal Cannula 3.0 32 02/15/17 20:22 98.6 79 20 149/88 90 Nasal Cannula 02/15/17 20:00 76 7/2/17 19:30 Nasal Cannula 2.0 28 02/15/17 19:30 98 Nasal Cannula 2.0 28 02/15/17 17:36 74 143/79 02/15/17 17:36 143/79 02/15/17 16:00 74 02/15/17 15:44 98.1 53 20 143/79 100 Nasal Cannula 2.0 02/15/17 15:08 74 20 99 Nasal Cannula 2.0 02/15/17 14:57 74 100 3.0 02/15/17 13:13 84 16 Nasal Cannula 3.0 02/15/17 13:12 84 16 96 Nasal Cannula 3.0 Intake and Output 02/15/17 02/16/17 19:00 07:00 Intake Total 590 ml Output Total 125 ml Balance 465 ml Intake Oral 590 ml Output Urine Total 125 ml General Appearance: no acute distress - on BiPAP Respiratory/Chest: lungs clear, decreased breath sounds Cardiovascular: normal rate Microbiology Date/Time Source Procedure Growth Status 02/15/17 21:30 Sputum Expectorated Gram Stain - Final Resulted 02/15/17 21:30 Sputum Expectorated Sputum Culture Pending Resulted Laboratory Tests 02/16/17 08:10: White Blood Count 5.7, Red Blood Count 3.11L, Hemoglobin 8.9L, Hematocrit 27.6L , Mean Corpuscular Volume 89, Mean Corpuscular Hemoglobin 28.6, Mean Corpuscular Hemoglobin Concent 32.2, Red Cell Distribution Width 14.9H, Platelet Count 226, Mean Platelet Volume 7.6, Neutrophils (%) (Auto) 49.8, Lymphocytes (%) (Auto) 33.2, Monocytes (%) (Auto) 7.7, Eosinophils (%) (Auto) 8.6H, Basophils (%) (Auto) 0.7, Sodium Level 139, Potassium Level 3.6, Chloride Level 92L, Carbon Dioxide Level 35H, Anion Gap 12, Blood Urea Nitrogen 50H, Creatinine 9.5H, Estimat Glomerular Filtration Rate 6.8, Glucose Level 119H, Calcium Level 9.2, Phosphorus Level 3.8 Current Medications Medications (Trade) Dose Ordered Sig/Bisi Route PRN Reason Start Time Stop Time Status Last Admin Dose Admin Acetaminophen (Tylenol) 650 mg Q4H PRN ORAL Mild Pain (Pain Scale 1-3) 02/15/17 07:15 03/17/17 07:14 Albuterol Sulfate (Proventil MDI) 2 puff Q4H PRN INH Shortness of Breath 02/15/17 10:30 03/17/17 10:29 02/16/17 12:15 Albuterol/ Ipratropium 3 ml 3 ml Q8HRT HHN 02/15/17 15:00 02/20/17 14:59 02/16/17 07:38 Alprazolam (Xanax) 0.5 mg Q6H PRN ORAL For Anxiety 02/15/17 08:00 02/22/17 07:59 02/15/17 18:14 Amlodipine Besylate (Norvasc) 10 mg DAILY ORAL 02/15/17 09:00 03/17/17 08:59 02/16/17 09:32 Aspirin (ASA) 81 mg DAILY ORAL 02/15/17 09:00 03/17/17 08:59 02/16/17 09:33 Atorvastatin Calcium (Lipitor) 10 mg BEDTIME ORAL 02/15/17 21:00 03/17/17 20:59 02/15/17 21:29 Clonidine HCl (Catapres) 0.1 mg TID PRN ORAL sbp>160 02/15/17 09:00 03/17/17 08:59 Clopidogrel Bisulfate (Plavix) 75 mg DAILY ORAL 02/15/17 09:00 03/17/17 08:59 02/16/17 09:33 Dextrose (Dextrose 50%) STAT PRN IV Hypoglycemia 02/15/17 23:15 03/17/17 23:14 Diphenhydramine HCl (Benadryl) 25 mg Q6H PRN ORAL Itching/Pruritis 02/15/17 11:15 03/17/17 11:14 Epoetin [place] (Procrit (for ESRD on dialysis)) 5,000 units THU-WED-THU SUBQ 02/16/17 21:00 03/18/17 20:59 Escitalopram Oxalate (Lexapro) 5 mg DAILY ORAL 02/15/17 09:00 03/17/17 08:59 02/16/17 09:33 Gabapentin (Neurontin) 100 mg THREE TIMES A DAY ORAL 02/15/17 09:00 03/17/17 08:59 02/16/17 09:32 Heparin Sodium (Porcine) (Heparin Sod 1000 units/ml 10ml) 2,000 unit ONCE PRN IV FOR HD 02/16/17 06:00 02/16/17 23:59 Lisinopril (Prinivil) 20 mg Q12HR ORAL 02/16/17 21:00 03/18/17 20:59 Lorazepam (Ativan) 1 mg THREE TIMES A DAY PRN ORAL For Anxiety 02/15/17 09:00 02/22/17 08:59 Nicotine (Nicoderm) 1 patch Q24H TDERMAL 02/15/17 17:00 03/17/17 16:59 02/15/17 17:35 Nitroglycerin (Nitro-Bid) 1 inch BID TOPIC 02/15/17 09:00 03/17/17 08:59 02/16/17 09:32 Propranolol HCl (Inderal) 40 mg BID ORAL 02/15/17 09:00 03/17/17 08:59 02/16/17 09:33 Sodium Chloride (Sodium Chloride 1000ml bag) 1,000 ml @ 500 mls/hr Q2H PRN IVLG sbp<90 during hd 02/16/17 06:00 02/16/17 23:59 Tamsulosin HCl (Flomax) 0.4 mg BEDTIME ORAL 02/15/17 21:00 03/17/17 20:59 02/15/17 21:30 Tiotropium [place] (Spiriva Inhaler) 1 puff DAILY INH 02/15/17 09:00 03/17/17 08:59 02/16/17 09:59 Tramadol HCl (Ultram) 50 mg Q6H PRN ORAL Moderate Pain (Pain Scale 4-6) 02/15/17 08:30 02/22/17 08:29 02/15/17 23:00 Vitamin B Complex/ Vit C/Folic Acid (Nephrovite) 1 tab DAILY ORAL 02/15/17 09:00 03/17/17 08:59 02/16/17 09:32 Zolpidem Tartrate (Ambien) 5 mg DAILYPRN PRN ORAL Insomnia 02/15/17 23:15 03/17/17 23:14 02/15/17 22:59 TAVO MARTINEZ Feb 16, 2017 13:05
[2017-02-16] MEDS: PredniSONE 20mg tab ORAL SCH (13:55)
[2017-02-16] MEDS ORDERED: Azithromycin 250mg tab ORAL ONE (14:00)
[2017-02-16 15:26] VITALS: BP 134/82
[2017-02-16] MEDS: ALPRAZolam 0.5mg tab ORAL PRN (15:47)
[2017-02-16] MEDS: traMADol 50mg tab ORAL PRN (18:17)
[2017-02-16 20:00] VITALS: BP 154/93
[2017-02-16] MEDS ORDERED: Epogen (for ESRD on dialysis) SUBQ SCH (21:00)
[2017-02-16] MEDS: Tamsulosin 0.4mg cap ORAL SCH (21:55)
[2017-02-16] MEDS: LORazepam 1mg tab ORAL PRN (22:05)
[2017-02-17 00:02] VITALS: BP 121/78
[2017-02-17] MEDS: traMADol 50mg tab ORAL PRN ×3 (01:16→17:22)
[2017-02-17 04:03] VITALS: BP 138/93
[2017-02-17] MEDS: DuoNeb 0.5-3(2.5)mg/3ml neb HHN SCH ×3 (07:13→22:42)
[2017-02-17 08:00] VITALS: BP 115/62
[2017-02-17] MEDS: PredniSONE 20mg tab ORAL SCH (08:07)
[2017-02-17] MEDS: Aspirin Baby 81mg ORAL SCH (08:07)
[2017-02-17] MEDS: Nitroglycerin 2% oint pkt TOPIC SCH ×2 (08:07→17:22)
[2017-02-17] MEDS: Escitalopram Oxalate 5mg tab ORAL SCH (08:08)
[2017-02-17] MEDS: Azithromycin 250mg tab ORAL SCH (08:08)
[2017-02-17] MEDS: Nephrovite tab ORAL SCH (08:08)
[2017-02-17] MEDS: Propranolol 40mg tab ORAL SCH ×2 (08:10→17:21)
[2017-02-17] MEDS: Lisinopril 20mg tab ORAL SCH ×2 (08:17→21:41)
--- NOTE | 2017-02-17 11:54 | Cardiology Progress Note ---
Assessment/Plan Assessment/Plan dyspnea likely a combination of underdiagnosed copd and heart failure as well as effusion pleural effusion moderate MR pulm htn tobacco use disorder copd cad (s/p pci of [employer] iwth repeat cath few day later showing patent stent esrd on hemodialysis hep c history paradoxic increase in bp with dialysis likely uremia pericarditis (resolved) (i am not sure he had Josef syndrome he had no sig evidence fo acute mi on trops) ekg seem unchanged since [facility] and initial er ekg poor quality dose show irregular rhythm nto sure if artifact or afib no recurrence [facility] echo has been personally reviewed [facility] [place] has been personally reviewed no longer has pericardial effusion but has pleural effusion mr ( is not sever but moderate now) was mild before on [facility] images ct report form [place] reviewed contieneu UF as bp allow aggressive treatment of htn norvasc adn coreg and erma i now lookand feel better with the amount uf d/s dr mijares extensively d/w pt Subjective Cardiovascular: Denies: chest pain Respiratory: Denies: shortness of breath Gastrointestinal/Abdominal: Denies: abdominal pain Genitourinary: Denies: burning Objective Last 24 Hour Vital Signs Date Time Temp Pulse Resp B/P Pulse Ox O2 Delivery O2 Flow Rate FiO2 02/17/17 09:06 75 18 95 Nasal Cannula 2.0 28 02/17/17 08:17 126/84 02/17/17 08:15 73 126/84 02/17/17 08:10 73 126/84 02/17/17 08:07 126/84 02/17/17 08:00 72 02/17/17 08:00 97.0 70 17 115/62 95 Nasal Cannula 2.0 76 02/17/17 07:23 75 18 99 Nasal Cannula 2.0 28 02/17/17 07:13 75 18 Nasal Cannula 2.0 28 02/17/17 07:13 Nasal Cannula 2.0 28 02/17/17 07:13 98 Nasal Cannula 2.0 02/17/17 04:03 98.7 74 20 138/93 98 Room Air 02/17/17 04:00 74 02/17/17 00:02 98.3 78 19 121/78 96 Nasal Cannula 02/17/17 00:00 77 02/16/17 23:30 Nasal Cannula 2.0 28 02/16/17 23:30 Nasal Cannula 2.0 28 02/16/17 21:55 154/93 02/16/17 20:00 98.2 75 20 154/93 98 Room Air 02/16/17 20:00 73 02/16/17 19:30 Nasal Cannula 2.0 02/16/17 19:00 98 Nasal Cannula 2.0 02/16/17 17:55 74 134/82 02/16/17 17:55 134/82 02/16/17 16:00 74 02/16/17 15:36 74 16 96 Room Air 21 02/16/17 15:36 Room Air 02/16/17 15:35 Nasal Cannula 2.0 30 02/16/17 15:26 97.7 67 20 134/82 97 Nasal Cannula 2.0 02/16/17 13:30 74 18 96 28 02/16/17 12:00 80 General Appearance: no apparent distress Neck: supple Cardiovascular: normal rate, regular rhythm Respiratory/Chest: decreased breath sounds - bs are lower at the left base Abdomen: normal bowel sounds, non tender, soft Extremities: no swelling Intake and Output 02/16/17 02/17/17 19:00 07:00 Intake Total 480 ml Output Total 4800 ml Balance -4320 ml Intake Oral 480 ml Hemodialysis UF 4800 ml # Voids 1 Microbiology Date/Time Source Procedure Growth Status 02/15/17 21:30 Sputum Expectorated Gram Stain - Final Resulted 02/15/17 21:30 Sputum Culture - Preliminary Gram Negative Bacillus 1 Resulted 02/15/17 19:30 Nasal Nares MRSA Culture - Final NO METHICILLIN RESISTANT STAPH AUREUS... Complete 02/15/17 19:30 Rectal Mucosa VRE Culture - Final NO VANCOMYCIN RESISTANT ENTEROCOCCUS ... Complete SOLITARIO RUSSELL Feb 17, 2017 11:54
[2017-02-17 12:00] VITALS: BP 137/78
--- NOTE | 2017-02-17 12:19 | Nephrology Progress Note ---
Assessment/Plan Problem List: (1) HTN (hypertension) (2) CAD (coronary artery disease) (3) ESRD (end stage renal disease) on dialysis (4) CHF (congestive heart failure) (5) Respiratory failure Plan HD tomorrow check final sputum for culture abxs follow labs Discussed with Dr Hernandez Subjective Subjective feels better Objective Objective Last 24 Hour Vital Signs Date Time Temp Pulse Resp B/P Pulse Ox O2 Delivery O2 Flow Rate FiO2 02/17/17 09:06 75 18 95 Nasal Cannula 2.0 28 02/17/17 08:17 126/84 02/17/17 08:15 73 126/84 02/17/17 08:10 73 126/84 02/17/17 08:07 126/84 02/17/17 08:00 72 02/17/17 08:00 97.0 70 17 115/62 95 Nasal Cannula 2.0 76 02/17/17 07:23 75 18 99 Nasal Cannula 2.0 28 02/17/17 07:13 75 18 Nasal Cannula 2.0 28 02/17/17 07:13 Nasal Cannula 2.0 28 02/17/17 07:13 98 Nasal Cannula 2.0 28 02/17/17 04:03 98.7 74 20 138/93 98 Room Air 02/17/17 04:00 74 02/17/17 00:02 98.3 78 19 121/78 96 Nasal Cannula 02/17/17 00:00 77 02/16/17 23:30 Nasal Cannula 2.0 28 02/16/17 23:30 Nasal Cannula 2.0 28 02/16/17 21:55 154/93 02/16/17 20:00 98.2 75 20 154/93 98 Room Air 02/16/17 20:00 73 02/16/17 19:30 Nasal Cannula 2.0 28 02/16/17 19:00 98 Nasal Cannula 2.0 28 02/16/17 17:55 74 134/82 02/16/17 17:55 134/82 02/16/17 16:00 74 02/16/17 15:36 74 16 96 Room Air 21 02/16/17 15:36 Room Air 02/16/17 15:35 Nasal Cannula 2.0 30 02/16/17 15:26 97.7 67 20 134/82 97 Nasal Cannula 2.0 02/16/17 13:30 74 18 96 28 Intake and Output 02/16/17 02/17/17 19:00 07:00 Intake Total 480 ml Output Total 4800 ml Balance -4320 ml Intake Oral 480 ml Hemodialysis UF 4800 ml # Voids 1 Height (Feet): 5 Height (Inches): 11.00 Weight (Pounds): 180 Cardiovascular: normal rate Respiratory/Chest: lungs clear Extremities: other - no edema ALVIN HUTCHINS Feb 17, 2017 12:19
[2017-02-17] MEDS ORDERED: Heparin Sod 1000 units/ml 10ml IV PRN (12:30)
[2017-02-17] MEDS ORDERED: Heparin 5000 units/ml inj INJ PRN (12:30)
--- NOTE | 2017-02-17 13:49 | Pulmonology Progress Note ---
Assessment/Plan Assessment/Plan 1. Dyspnea with acute respiratory failure, multifactorial, improved 2. Congestive heart failure, systolic and diastolic with ejection fraction 46%. 3. Probable chronic obstructive pulmonary disease in a heavy cigarette smoker. 4. Coronary disease with recent stent placement. 5. Hypertension. 6. Anemia. 7. Hepatitis C. 8. End-stage renal disease, on hemodialysis with recent pericarditis. much less SOB off BiPAP no blood tinged sputum disc w Dr Amaya continue prednisone change to Augmentin per sputum prelim c/s Subjective Respiratory: Reports: shortness of breath - much better; off BiPAP, Denies: hemoptysis Allergies: Coded Allergies: No Known Allergies (Unverified , 06/06/12) Objective Last 24 Hour Vital Signs Date Time Temp Pulse Resp B/P Pulse Ox O2 Delivery O2 Flow Rate FiO2 02/17/17 12:00 71 02/17/17 12:00 97.2 69 18 137/78 100 Nasal Cannula 2.0 68 02/17/17 09:06 75 18 95 Nasal Cannula 2.0 28 02/17/17 08:17 126/84 02/17/17 08:15 73 126/84 02/17/17 08:10 73 126/84 02/17/17 08:07 126/84 02/17/17 08:00 72 02/17/17 08:00 97.0 70 17 115/62 95 Nasal Cannula 2.0 76 02/17/17 07:23 75 18 99 Nasal Cannula 2.0 28 02/17/17 07:13 75 18 Nasal Cannula 2.0 28 02/17/17 07:13 Nasal Cannula 2.0 28 02/17/17 07:13 98 Nasal Cannula 2.0 02/17/17 04:03 98.7 74 20 138/93 98 Room Air 02/17/17 04:00 74 02/17/17 00:02 98.3 78 19 121/78 96 Nasal Cannula 02/17/17 00:00 77 02/16/17 23:30 Nasal Cannula 2.0 02/16/17 23:30 Nasal Cannula 2.0 02/16/17 21:55 154/93 02/16/17 20:00 98.2 75 20 154/93 98 Room Air 02/16/17 20:00 73 02/16/17 19:30 Nasal Cannula 2.0 02/16/17 19:00 98 Nasal Cannula 2.0 28 02/16/17 17:55 74 134/82 02/16/17 17:55 134/82 02/16/17 16:00 74 02/16/17 15:36 74 16 96 Room Air 21 02/16/17 15:36 Room Air 02/16/17 15:35 Nasal Cannula 2.0 30 02/16/17 15:26 97.7 67 20 134/82 97 Nasal Cannula 2.0 Intake and Output 02/16/17 02/17/17 19:00 07:00 Intake Total 480 ml Output Total 4800 ml Balance -4320 ml Intake Oral 480 ml Hemodialysis UF 4800 ml # Voids 1 General Appearance: no acute distress HEENT: atraumatic Respiratory/Chest: lungs clear, decreased breath sounds Cardiovascular: normal rate Microbiology Date/Time Source Procedure Growth Status 02/15/17 21:30 Sputum Expectorated Gram Stain - Final Resulted 02/15/17 21:30 Sputum Culture - Preliminary Gram Negative Bacillus 1 Resulted 02/15/17 19:30 Nasal Nares MRSA Culture - Final NO METHICILLIN RESISTANT STAPH AUREUS... Complete 02/15/17 19:30 Rectal Mucosa VRE Culture - Final NO VANCOMYCIN RESISTANT ENTEROCOCCUS ... Complete Current Medications Medications (Trade) Dose Ordered Sig/Bisi Route PRN Reason Start Time Stop Time Status Last Admin Dose Admin Acetaminophen (Tylenol) 650 mg Q4H PRN ORAL Mild Pain (Pain Scale 1-3) 02/15/17 07:15 03/17/17 07:14 Albuterol Sulfate (Proventil MDI) 2 puff Q4H PRN INH Shortness of Breath 02/15/17 10:30 03/17/17 10:29 02/16/17 12:15 Albuterol/ Ipratropium (DuoNeb 0.5-3(2.5)mg/3ml) 3 ml Q8HRT HHN 02/15/17 15:00 02/20/17 14:59 02/17/17 07:13 Alprazolam (Xanax) 0.5 mg Q6H PRN ORAL For Anxiety 02/15/17 08:00 02/22/17 07:59 02/16/17 15:47 Amlodipine Besylate (Norvasc) 10 mg DAILY ORAL 02/15/17 09:00 03/17/17 08:59 02/16/17 09:32 Aspirin (ASA) 81 mg DAILY ORAL 02/15/17 09:00 03/17/17 08:59 02/17/17 08:07 Atorvastatin Calcium (Lipitor) 10 mg BEDTIME ORAL 02/15/17 21:00 03/17/17 20:59 02/16/17 21:55 Azithromycin (Zithromax) 250 mg DAILY ORAL 02/17/17 09:00 02/22/17 09:01 02/17/17 08:08 Clonidine HCl (Catapres) 0.1 mg TID PRN ORAL sbp>160 02/15/17 09:00 03/17/17 08:59 Clopidogrel Bisulfate (Plavix) 75 mg DAILY ORAL 02/15/17 09:00 03/17/17 08:59 02/17/17 08:06 Dextrose (Dextrose 50%) STAT PRN IV Hypoglycemia 02/15/17 23:15 03/17/17 23:14 Diphenhydramine HCl (Benadryl) 25 mg Q6H PRN ORAL Itching/Pruritis 02/15/17 11:15 03/17/17 11:14 Epoetin [place] (Procrit (for ESRD on dialysis)) 5,000 units THU-THU-THU SUBQ 02/16/17 21:00 03/18/17 20:59 02/16/17 21:56 Escitalopram Oxalate (Lexapro) 5 mg DAILY ORAL 02/15/17 09:00 03/17/17 08:59 02/17/17 08:08 Gabapentin (Neurontin) 100 mg THREE TIMES A DAY ORAL 02/15/17 09:00 03/17/17 08:59 02/17/17 12:24 Heparin Sodium (Porcine) (Heparin 5000 units/ml) 5,000 units POSTHD PRN INJ FOR HD USE ONLY 02/17/17 12:30 02/18/17 23:59 Heparin Sodium (Porcine) (Heparin Sod 1000 units/ml 10ml) 2,000 unit ONCE PRN IV FOR HD USE ONLY 02/17/17 12:30 02/18/17 23:59 Lisinopril (Prinivil) 20 mg Q12HR ORAL 02/16/17 21:00 03/18/17 20:59 02/16/17 21:55 Lorazepam (Ativan) 1 mg THREE TIMES A DAY PRN ORAL For Anxiety 02/15/17 09:00 02/22/17 08:59 02/16/17 22:05 Nicotine (Nicoderm) 1 patch Q24H TDERMAL 02/15/17 17:00 03/17/17 16:59 02/16/17 17:56 Nitroglycerin (Nitro-Bid) 1 inch BID TOPIC 02/15/17 09:00 03/17/17 08:59 02/17/17 08:07 Prednisone 40 mg 40 mg DAILY ORAL 02/16/17 14:00 03/18/17 13:59 02/17/17 08:07 Propranolol HCl (Inderal) 40 mg BID ORAL 02/15/17 09:00 03/17/17 08:59 02/17/17 08:10 Sodium Chloride (Sodium Chloride 1000ml bag) 1,000 ml @ 500 mls/hr Q2H PRN IVLG sbp<90 during hd 02/17/17 12:30 02/18/17 23:59 Tamsulosin HCl (Flomax) 0.4 mg BEDTIME ORAL 02/15/17 21:00 03/17/17 20:59 02/16/17 21:55 Tiotropium [place] (Spiriva Inhaler) 1 puff DAILY INH 02/15/17 09:00 03/17/17 08:59 02/17/17 09:06 Tramadol HCl (Ultram) 50 mg Q6H PRN ORAL Moderate Pain (Pain Scale 4-6) 02/15/17 08:30 02/22/17 08:29 02/17/17 08:21 Vitamin B Complex/ Vit C/Folic Acid (Nephrovite) 1 tab DAILY ORAL 02/15/17 09:00 03/17/17 08:59 02/17/17 08:08 Zolpidem Tartrate (Ambien) 5 mg DAILYPRN PRN ORAL Insomnia 02/15/17 23:15 03/17/17 23:14 02/15/17 22:59 TAVO MARTINEZ Feb 17, 2017 13:49
[2017-02-17 16:00] VITALS: BP 138/78
[2017-02-17 20:00] VITALS: BP 150/86
[2017-02-17] MEDS: Tamsulosin 0.4mg cap ORAL SCH (21:41)
[2017-02-17] MEDS: LORazepam 1mg tab ORAL PRN (21:47)
[2017-02-18] VITALS (7 sets, daily range): BP systolic 136–150; BP diastolic 77–90
[2017-02-18] MEDS: DuoNeb 0.5-3(2.5)mg/3ml neb HHN SCH ×2 (06:58→14:43)
[2017-02-18 07:38] LABS: BASOPHILS % (AUTO) 0.3 % (0.0-2.0); EOSINOPHILS % (AUTO) 0.1 % (0.0-3.0); LYMPHOCYTES % (AUTO) 15.7 % (20.0-45.0); MEAN CORPUSCULAR HEMOGLOBIN 29.3 PG (27.0-31.0); MEAN CORPUSCULAR HGB CONC 32.6 G/DL (32.0-36.0); MEAN CORPUSCULAR VOLUME 90 FL (80-99); MEAN PLATELET VOLUME 7.6 FL (6.5-10.1); MONOCYTES % (AUTO) 6.3 % (1.0-10.0); NEUTROPHILS % (AUTO) 77.7 % (45.0-75.0); PLATELET COUNT 251 K/UL (150-450); RED CELL DISTRIBUTION WIDTH 15.3 % (11.6-14.8); WHITE BLOOD COUNT 12.3 K/UL (4.8-10.8)
[2017-02-18 07:45] LABS: CALCIUM 9.6 mg/dL (8.6-10.2); CREATININE 12.4 mg/dL (0.7-1.2); PHOSPHORUS 3.5 mg/dL (2.5-4.8); POTASSIUM 4.7 mEQ/L (3.4-4.9)
--- NOTE | 2017-02-18 09:11 | Pulmonology Progress Note ---
Assessment/Plan Assessment/Plan 1. Dyspnea with acute respiratory failure, multifactorial, improved 2. Congestive heart failure, systolic and diastolic with ejection fraction 46%. 3. Probable chronic obstructive pulmonary disease in a heavy cigarette smoker. 4. Coronary disease with recent stent placement. 5. Hypertension. 6. Anemia. 7. Hepatitis C. 8. End-stage renal disease, on hemodialysis with recent pericarditis. not SOB minimal blood tinged sputum taper prednisone to 20 mg continue Augmentin per sputum prelim c/s Subjective Respiratory: Reports: hemoptysis - minimal, Denies: shortness of breath Allergies: Coded Allergies: No Known Allergies (Unverified , 06/06/12) Objective Last 24 Hour Vital Signs Date Time Temp Pulse Resp B/P Pulse Ox O2 Delivery O2 Flow Rate FiO2 02/18/17 08:35 97.5 74 18 144/87 99 Nasal Cannula 2.0 02/18/17 07:03 76 18 100 Nasal Cannula 2.0 02/18/17 06:59 99 Nasal Cannula 2.0 02/18/17 06:59 74 18 Nasal Cannula 2.0 02/18/17 06:59 Nasal Cannula 2.0 02/18/17 04:00 72 02/18/17 04:00 97.3 75 18 145/82 95 Room Air 02/18/17 00:00 73 02/18/17 00:00 97.6 73 18 148/90 97 Room Air 02/17/17 22:44 74 18 100 Nasal Cannula 2.0 02/17/17 22:44 72 18 Nasal Cannula 2.0 02/17/17 21:41 150/86 02/17/17 20:00 70 02/17/17 20:00 97.3 76 18 150/86 100 Room Air 02/17/17 18:58 100 Nasal Cannula 2.0 02/17/17 18:58 Nasal Cannula 2.0 02/17/17 17:22 138/78 02/17/17 17:21 75 138/78 02/17/17 16:00 75 02/17/17 16:00 97.0 75 17 138/78 98 Room Air 78 02/17/17 15:29 75 18 99 Nasal Cannula 2.0 02/17/17 15:19 75 18 Nasal Cannula 2.0 02/17/17 12:00 71 02/17/17 12:00 97.2 69 18 137/78 100 Nasal Cannula 2.0 68 Intake and Output 02/17/17 02/18/17 19:00 07:00 Intake Total 680 ml 140 ml Balance 680 ml 140 ml Intake Oral 680 ml 140 ml # Voids 3 2 General Appearance: no acute distress HEENT: atraumatic Respiratory/Chest: lungs clear, decreased breath sounds Cardiovascular: normal rate Microbiology Date/Time Source Procedure Growth Status 02/15/17 21:30 Sputum Expectorated Gram Stain - Final Resulted 02/15/17 21:30 Sputum Culture - Preliminary Gram Negative Bacillus 1 Gram Negative Bacillus 2 Usual Upper Respiratory Janey Resulted 02/15/17 19:30 Nasal Nares MRSA Culture - Final NO METHICILLIN RESISTANT STAPH AUREUS... Complete 02/15/17 19:30 Rectal Mucosa VRE Culture - Final NO VANCOMYCIN RESISTANT ENTEROCOCCUS ... Complete Laboratory Tests 02/18/17 06:40: White Blood Count 12.3H, Red Blood Count 3.00L, Hemoglobin 8.8L, Hematocrit 26.9L, Mean Corpuscular Volume 90, Mean Corpuscular Hemoglobin 29.3, Mean Corpuscular Hemoglobin Concent 32.6, Red Cell Distribution Width 15.3H, Platelet Count 251, Mean Platelet Volume 7.6, Neutrophils (%) (Auto) 77.7H, Lymphocytes (%) (Auto) 15.7L, Monocytes (%) (Auto) 6.3, Eosinophils (%) (Auto) 0.1, Basophils (%) (Auto) 0.3, Sodium Level 141, Potassium Level 4.7, Chloride Level 95L, Carbon Dioxide Level 31H, Anion Gap 15, Blood Urea Nitrogen 90H, Creatinine 12.4H, Estimat Glomerular Filtration Rate 5.0, Glucose Level 105, Calcium Level 9.6, Phosphorus Level 3.5 Current Medications Medications (Trade) Dose Ordered Sig/Bisi Route PRN Reason Start Time Stop Time Status Last Admin Dose Admin Acetaminophen (Tylenol) 650 mg Q4H PRN ORAL Mild Pain (Pain Scale 1-3) 02/15/17 07:15 03/17/17 07:14 Albuterol Sulfate (Proventil MDI) 2 puff Q4H PRN INH Shortness of Breath 02/15/17 10:30 03/17/17 10:29 02/16/17 12:15 Albuterol/ Ipratropium (DuoNeb 0.5-3(2.5)mg/3ml) 3 ml Q8HRT HHN 02/15/17 15:00 02/20/17 14:59 02/18/17 06:58 Alprazolam (Xanax) 0.5 mg Q6H PRN ORAL For Anxiety 02/15/17 08:00 02/22/17 07:59 02/16/17 15:47 Amlodipine Besylate (Norvasc) 10 mg DAILY ORAL 02/15/17 09:00 03/17/17 08:59 02/16/17 09:32 Amoxicillin/ Clavulanate Potassium (Augmentin) 500 mg Q24H ORAL 02/17/17 16:00 02/24/17 15:59 02/17/17 16:30 Aspirin (ASA) 81 mg DAILY ORAL 02/15/17 09:00 03/17/17 08:59 02/17/17 08:07 Atorvastatin Calcium (Lipitor) 10 mg BEDTIME ORAL 02/15/17 21:00 03/17/17 20:59 02/17/17 21:41 Azithromycin 250 mg 250 mg DAILY ORAL 02/17/17 09:00 02/22/17 09:01 02/17/17 08:08 Clonidine HCl (Catapres) 0.1 mg TID PRN ORAL sbp>160 02/15/17 09:00 03/17/17 08:59 Clopidogrel Bisulfate (Plavix) 75 mg DAILY ORAL 02/15/17 09:00 03/17/17 08:59 02/17/17 08:06 Dextrose (Dextrose 50%) STAT PRN IV Hypoglycemia 02/15/17 23:15 03/17/17 23:14 Diphenhydramine HCl (Benadryl) 25 mg Q6H PRN ORAL Itching/Pruritis 02/15/17 11:15 03/17/17 11:14 Epoetin Zurdo (Procrit (for ESRD on dialysis)) 5,000 units THU-THU-THU SUBQ 02/16/17 21:00 03/18/17 20:59 02/16/17 21:56 Escitalopram Oxalate (Lexapro) 5 mg DAILY ORAL 02/15/17 09:00 03/17/17 08:59 02/17/17 08:08 Gabapentin (Neurontin) 100 mg THREE TIMES A DAY ORAL 02/15/17 09:00 03/17/17 08:59 02/17/17 17:22 Heparin Sodium (Porcine) (Heparin 5000 units/ml) 5,000 units POSTHD PRN INJ FOR HD USE ONLY 02/17/17 12:30 02/18/17 23:59 Heparin Sodium (Porcine) (Heparin Sod 1000 units/ml 10ml) 2,000 unit ONCE PRN IV FOR HD USE ONLY 02/17/17 12:30 02/18/17 23:59 Lisinopril (Prinivil) 20 mg Q12HR ORAL 02/16/17 21:00 03/18/17 20:59 02/17/17 21:41 Lorazepam (Ativan) 1 mg THREE TIMES A DAY PRN ORAL For Anxiety 02/15/17 09:00 02/22/17 08:59 02/17/17 21:47 Nicotine (Nicoderm) 1 patch Q24H TDERMAL 02/15/17 17:00 03/17/17 16:59 02/17/17 16:31 Nitroglycerin (Nitro-Bid) 1 inch BID TOPIC 02/15/17 09:00 03/17/17 08:59 02/17/17 17:22 Prednisone (predniSONE) 20 mg DAILY ORAL 02/19/17 09:00 03/21/17 08:59 UNV Propranolol HCl (Inderal) 40 mg BID ORAL 02/15/17 09:00 03/17/17 08:59 02/17/17 17:21 Sodium Chloride (Sodium Chloride 1000ml bag) 1,000 ml @ 500 mls/hr Q2H PRN IVLG sbp<90 during hd 02/17/17 12:30 02/18/17 23:59 Tamsulosin HCl (Flomax) 0.4 mg BEDTIME ORAL 02/15/17 21:00 03/17/17 20:59 02/17/17 21:41 Tiotropium [place] (Spiriva Inhaler) 1 puff DAILY INH 02/15/17 09:00 03/17/17 08:59 02/17/17 09:06 Tramadol HCl (Ultram) 50 mg Q6H PRN ORAL Moderate Pain (Pain Scale 4-6) 02/15/17 08:30 02/22/17 08:29 02/17/17 17:22 Vitamin B Complex/ Vit C/Folic Acid (Nephrovite) 1 tab DAILY ORAL 02/15/17 09:00 03/17/17 08:59 02/17/17 08:08 Zolpidem Tartrate (Ambien) 5 mg DAILYPRN PRN ORAL Insomnia 02/15/17 23:15 03/17/17 23:14 02/15/17 22:59 TAVO MARTINEZ Feb 18, 2017 09:11
[2017-02-18] MEDS ORDERED: PredniSONE 20mg tab ORAL SCH (10:00)
--- NOTE | 2017-02-18 10:02 | Diagnostic Imaging Report ---
Indications: Shortness of breath, pleural effusion Technique: Transthoracic real-time grayscale imaging of the bilateral pleural spaces Findings: Comparison: Chest radiograph 02/11/17 No fluid identified within the right pleural space. Only a small amount of fluid is identified in the basal aspect of left pleural space. IMPRESSION: Small left pleural effusion
[2017-02-18] MEDS: Nitroglycerin 2% oint pkt TOPIC SCH (10:11)
[2017-02-18] MEDS: Escitalopram Oxalate 5mg tab ORAL SCH (10:11)
[2017-02-18] MEDS: Propranolol 40mg tab ORAL SCH ×2 (10:11→17:02)
[2017-02-18] MEDS: Aspirin Baby 81mg ORAL SCH (10:11)
[2017-02-18] MEDS: Nephrovite tab ORAL SCH (10:11)
[2017-02-18] MEDS: Azithromycin 250mg tab ORAL SCH (10:11)
--- NOTE | 2017-02-18 14:13 | Discharge Instructions ---
Discharge Instructions Discharge Instructions Follow up with: dr gates Call MD/Return to Hospital if: sob or worsening symptoms Services at Discharge: day care Diet: renal (80g protein, 2GM) Activity: resume normal activities For Congestive Heart Failure Reminder Report to your physician any weight gain of 5 pounds or more in one week. ENRIQUE GATES M.D. Feb 18, 2017 14:13
--- NOTE | 2017-02-18 14:18 | Discharge Summary ---
Discharge Summary Hospital Course Date of Admission Feb 11, 2017 at 22:56 Date of Discharge Admitting Diagnosis respiratory distress HPI Bonifacio Paredes is a 66 year old male who was admitted on Feb 11, 2017 at 22:56 for Respiratory Distress #[id number] Discharge Condition Upon Discharge: stable Discharge Disposition Patient was discharged to HOME Discharge Diagnoses: Discharge Instructions Discharge Instructions Follow up with: dr geo Mclean MD/Return to Hospital if: sob or worsening symptoms Services Upon Discharge: day care Activity: resume normal activities ENRIQUE GATES M.D. Feb 18, 2017 14:18
--- NOTE | 2017-02-18 14:31 | Nephrology Progress Note ---
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 Subjective Subjective seen on dialysis Objective Objective Last 24 Hour Vital Signs Date Time Temp Pulse Resp B/P Pulse Ox O2 Delivery O2 Flow Rate FiO2 02/18/17 12:40 Nasal Cannula 2.0 02/18/17 11:47 97.7 72 18 138/78 100 Nasal Cannula 2.0 02/18/17 10:11 78 144/87 02/18/17 10:11 144/87 02/18/17 09:26 78 18 96 Nasal Cannula 2.0 02/18/17 08:35 97.5 74 18 144/87 99 Nasal Cannula 2.0 02/18/17 07:03 76 18 100 Nasal Cannula 2.0 02/18/17 06:59 99 Nasal Cannula 2.0 02/18/17 06:59 74 18 Nasal Cannula 2.0 02/18/17 06:59 Nasal Cannula 2.0 28 02/18/17 04:00 72 02/18/17 04:00 97.3 75 18 145/82 95 Room Air 02/18/17 00:00 73 02/18/17 00:00 97.6 73 18 148/90 97 Room Air 02/17/17 22:44 74 18 100 Nasal Cannula 2.0 02/17/17 22:44 72 18 Nasal Cannula 2.0 02/17/17 21:41 150/86 02/17/17 20:00 70 02/17/17 20:00 97.3 76 18 150/86 100 Room Air 02/17/17 18:58 100 Nasal Cannula 2.0 28 02/17/17 18:58 Nasal Cannula 2.0 28 02/17/17 17:22 138/78 02/17/17 17:21 75 138/78 02/17/17 16:00 75 02/17/17 16:00 97.0 75 17 138/78 98 Room Air 78 02/17/17 15:29 75 18 99 Nasal Cannula 2.0 28 02/17/17 15:19 75 18 Nasal Cannula 2.0 28 Intake and Output 02/17/17 02/18/17 19:00 07:00 Intake Total 680 ml 140 ml Balance 680 ml 140 ml Intake Oral 680 ml 140 ml # Voids 3 2 Laboratory Tests 02/18/17 06:40: White Blood Count 12.3H, Red Blood Count 3.00L, Hemoglobin 8.8L, Hematocrit 26.9L, Mean Corpuscular Volume 90, Mean Corpuscular Hemoglobin 29.3, Mean Corpuscular Hemoglobin Concent 32.6, Red Cell Distribution Width 15.3H, Platelet Count 251, Mean Platelet Volume 7.6, Neutrophils (%) (Auto) 77.7H, Lymphocytes (%) (Auto) 15.7L, Monocytes (%) (Auto) 6.3, Eosinophils (%) (Auto) 0.1, Basophils (%) (Auto) 0.3, Sodium Level 141, Potassium Level 4.7, Chloride Level 95L, Carbon Dioxide Level 31H, Anion Gap 15, Blood Urea Nitrogen 90H, Creatinine 12.4H, Estimat Glomerular Filtration Rate 5.0, Glucose Level 105, Calcium Level 9.6, Phosphorus Level 3.5 Height (Feet): 5 Height (Inches): 11.00 Weight (Pounds): 180 Cardiovascular: normal rate Respiratory/Chest: lungs clear Extremities: other - no edema ALVIN HUTCHINS Feb 18, 2017 14:31
[2017-02-18] MEDS: Lisinopril 20mg tab ORAL SCH (17:02)
[2017-02-18] MEDS: traMADol 50mg tab ORAL PRN (17:03)
--- NOTE | 2017-02-18 18:57 | Cardiology Progress Note ---
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 iwth repeat cath few day later showing patent stent esrd on hemodialysis hep c history paradoxic increase in bp with dialysis likely uremia pericarditis (resolved) (i am not sure he had Josef syndrome he had no sig evidence fo acute mi on trops) [facility] ekg poor quality dose show irregular rhythm nto sure if artifact or afib no recurrence on tele as of last few dasy to 02/18/2017 [facility] echo has been personally reviewed [facility] has been personally reviewed no longer has pericardial effusion but has pleural effusion mr ( is not sever but moderate now) was mild before on [facility] images ct report form [facility] reviewed u/s not sig pelural effuion home to day improatacne of compalince with dialysi sdn fluid adn na restriction d/w pt out 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, understood by pt Subjective Cardiovascular: Denies: palpitations Respiratory: Denies: SOB with excertion Gastrointestinal/Abdominal: Denies: abdominal pain Genitourinary: Denies: burning Objective Last 24 Hour Vital Signs Date Time Temp Pulse Resp B/P Pulse Ox O2 Delivery O2 Flow Rate FiO2 02/18/17 17:03 70 150/77 02/18/17 17:02 150/77 02/18/17 17:02 70 150/77 02/18/17 16:58 70 150/77 02/18/17 15:45 Room Air 02/18/17 15:44 98.2 75 18 136/82 98 Nasal Cannula 2.0 02/18/17 14:43 Nasal Cannula 2.0 02/18/17 14:43 73 18 Nasal Cannula 2.0 02/18/17 14:00 70 18 97 Room Air 02/18/17 12:40 Nasal Cannula 2.0 02/18/17 11:47 97.7 72 18 138/78 100 Nasal Cannula 2.0 02/18/17 10:11 78 144/87 02/18/17 10:11 144/87 02/18/17 09:26 78 18 96 Nasal Cannula 2.0 02/18/17 08:35 97.5 74 18 144/87 99 Nasal Cannula 2.0 02/18/17 07:03 76 18 100 Nasal Cannula 2.0 28 02/18/17 06:59 99 Nasal Cannula 2.0 28 02/18/17 06:59 74 18 Nasal Cannula 2.0 28 02/18/17 06:59 Nasal Cannula 2.0 28 02/18/17 04:00 72 02/18/17 04:00 97.3 75 18 145/82 95 Room Air 02/18/17 00:00 73 02/18/17 00:00 97.6 73 18 148/90 97 Room Air 02/17/17 22:44 74 18 100 Nasal Cannula 2.0 02/17/17 22:44 72 18 Nasal Cannula 2.0 02/17/17 21:41 150/86 02/17/17 20:00 70 02/17/17 20:00 97.3 76 18 150/86 100 Room Air 02/17/17 18:58 100 Nasal Cannula 2.0 02/17/17 18:58 Nasal Cannula 2.0 28 General Appearance: no apparent distress, alert Neck: supple Cardiovascular: normal rate, regular rhythm Respiratory/Chest: lungs clear, normal breath sounds Abdomen: normal bowel sounds, non tender, soft Extremities: no swelling Intake and Output 02/17/17 02/18/17 19:00 07:00 Intake Total 680 ml 140 ml Balance 680 ml 140 ml Intake Oral 680 ml 140 ml # Voids 3 2 Laboratory Tests Test 02/18/17 06:40 White Blood Count 12.3 K/UL (4.8-10.8) H Red Blood Count 3.00 M/UL (4.70-6.10) L Hemoglobin 8.8 G/DL (14.2-18.0) L Hematocrit 26.9 % (42.0-52.0) L Mean Corpuscular Volume 90 FL (80-99) Mean Corpuscular Hemoglobin 29.3 PG (27.0-31.0) Mean Corpuscular Hemoglobin Concent 32.6 G/DL (32.0-36.0) Red Cell Distribution Width 15.3 % (11.6-14.8) H Platelet Count 251 K/UL (150-450) Mean Platelet Volume 7.6 FL (6.5-10.1) Neutrophils (%) (Auto) 77.7 % (45.0-75.0) H Lymphocytes (%) (Auto) 15.7 % (20.0-45.0) L Monocytes (%) (Auto) 6.3 % (1.0-10.0) Eosinophils (%) (Auto) 0.1 % (0.0-3.0) Basophils (%) (Auto) 0.3 % (0.0-2.0) Sodium Level 141 mEQ/L (135-145) Potassium Level 4.7 mEQ/L (3.4-4.9) Chloride Level 95 mEQ/L (98-107) L Carbon Dioxide Level 31 mEQ/L (20-30) H Anion Gap 15 (5-15) Blood Urea Nitrogen 90 mg/dL (7-23) H Creatinine 12.4 mg/dL (0.7-1.2) H Estimat Glomerular Filtration Rate 5.0 mL/min (>60) Glucose Level 105 mg/dL (74-106) Calcium Level 9.6 mg/dL (8.6-10.2) Phosphorus Level 3.5 mg/dL (2.5-4.8) Microbiology Date/Time Source Procedure Growth Status 02/15/17 21:30 Sputum Expectorated Gram Stain - Final Resulted 02/15/17 21:30 Sputum Culture - Preliminary Gram Negative Bacillus 1 Gram Negative Bacillus 2 Usual Upper Respiratory Janey Resulted 02/15/17 19:30 Nasal Nares MRSA Culture - Final NO METHICILLIN RESISTANT STAPH AUREUS... Complete 02/15/17 19:30 Rectal Mucosa VRE Culture - Final NO VANCOMYCIN RESISTANT ENTEROCOCCUS ... Complete SOLITARIO RUSSELL Feb 18, 2017 18:57
--- NOTE | 2017-02-18 23:30 | Discharge Summary ---
DATE OF ADMISSION: 02/11/2017 DATE OF DISCHARGE: 02/18/2017 REASON FOR ADMISSION: Shortness of breath. PROCEDURES DONE: Hemodialysis. SIGNIFICANT FINDING: TTE showing severe pulmonary hypertension as well as moderate mitral valve regurgitation. HISTORY OF PRESENT ILLNESS: This is a 66-year-old male with history of end-stage renal disease on hemodialysis, nicotine abuse, history of NSTEMI with coronary artery disease status post PCI complicated by pericarditis, hepatitis C, chronic diastolic dysfunction with congestive heart failure with last ejection fraction 43%, who presents to the emergency room for shortness of breath secondary to pulmonary edema. The patient appeared to be fluid overloaded and has several sessions of hemodialysis while here. He is more euvolemic now and now off oxygen. He had TTE showing ejection fraction 43% with moderate mitral valve regurgitation and severe pulmonary hypertension with RVSP of 52 mm. He was ruled out for CVA. He had both Cardiology Dr. Hernandez as well as Dr. Austin from Pulmonary see the patient. He will need PFTs as outpatient. He was started empirically on prednisone for possible chronic obstructive pulmonary disease exacerbation which may be is contributing to his dyspnea. He will also go home with Augmentin for bronchitis/chronic obstructive pulmonary disease exacerbation. The patient appears to be euvolemic at this time and is no longer short of breath. He will need to follow up with me as outpatient for referral for PFTs as well as longer hemodialysis sessions. DISCHARGE CONDITION: Stable. DISCHARGE MEDICATIONS: The patient to be discharged on all home medications. New medication started propranolol 40 mg p.o. b.i.d. for hypertension and anxiety, lisinopril 20 mg p.o. b.i.d. for hypertension. Prednisone taper as well as Augmentin for chronic obstructive pulmonary disease exacerbation. The patient to return hospital for worsening condition and symptoms including shortness of breath. The patient is to ambulate as tolerated. The patient to be on renal diet. DISCHARGE DIAGNOSES: 1. Shortness of breath likely secondary to a pulmonary edema and possibly underlying chronic obstructive pulmonary disease with possible chronic obstructive pulmonary disease exacerbation. 2. Bilateral pleural effusions, small. 3. End-stage renal disease, on hemodialysis. 4. History of non-ST elevation myocardial infarction/coronary artery disease status post percutaneous coronary intervention. 5. Hepatitis C. 6. Anxiety. 7. Acute on chronic congestive heart failure exacerbation with ejection fraction 43% and diastolic dysfunction. 8. Severe pulmonary hypertension with right ventricular systolic pressure of 52. 9. Nicotine abuse. 10. Hypertension. Trino Hinds MD DR: Freddy JOB#: [id number] CC:
== END 2017-02-18 19:25 | disposition home health service (06) | DRG 190 ==
LOC: EDBD 22:33 → EMR 22:41 → 2W 22:56 → EDBEDREQ 02-12 00:26 → 2W 02-12 02:20 → 2E 02-15 07:47
PROC: 5A1D60Z (ICD-10-PCS; principal; 2017-02-12)
PROC: 5A09357 Assistance with Respiratory Ventilation, Less than 24 Consecutive Hours, Continuous Positive Airway Pressure (ICD-10-PCS; principal; 2017-02-12)
DX: J44.1 Chronic obstructive pulmonary disease with (acute) exacerbation (principal); J96.00 Acute respiratory failure, unspecified whether with hypoxia or hypercapnia; I50.33 Acute on chronic diastolic (congestive) heart failure; I27.2 Other secondary pulmonary hypertension; I12.0 Hypertensive chronic kidney disease with stage 5 chronic kidney disease or end stage renal disease; J90 Pleural effusion, not elsewhere classified; N18.6 End stage renal disease; I25.10 Atherosclerotic heart disease of native coronary artery without angina pectoris; Z72.0 Tobacco use; F41.9 Anxiety disorder, unspecified; B19.20 Unspecified viral hepatitis C without hepatic coma; I34.0 Nonrheumatic mitral (valve) insufficiency; I25.2 Old myocardial infarction; Z99.2 Dependence on renal dialysis; Z95.5 Presence of coronary angioplasty implant and graft
CPT/HCPCS: 36415; 71010; 76604; 80048; 80053; 80061; 82550; 82553; 82962; 83036; 83735; 83880; 84100; 84443; 84484; 85025; 87070; 87081; 87181; 87205; 93005; 93306; 94640; 94660; 94664; 94760; J7620

== ENCOUNTER 2018-09-13 23:55 | Inpatient (IN) | payer MEDICARE, OTHER ==
[~2018-09-13] VITALS: Ht 175.3 cm; Wt 66.7 kg
[~2018-09-13 23:55] MED LIST changes: +ASPIR 8181 MG ORAL; +CLONIDINE HCL0.1 M1 PO; +FLOMAX0.4 MG ORAL; +GABAPENTIN100 MG ORAL; +LEXAPRO10 MG ORAL; +LIBRIUM10 MG ORAL; +LIPITOR80 MG ORAL; +NICODERM 7MG/24H1 EA TD; +PLAVIX75 MG ORAL; +SPIRIVA18 MCG INH
[2018-09-13] MEDS ORDERED: LIBRIUM10 MG ORAL (23:59)
[2018-09-13] MEDS ORDERED: VENTOLIN HFA18 GM INH (23:59)
[2018-09-13] MEDS ORDERED: ATENOLOL25 MG ORAL (23:59)
--- NOTE | 2018-09-14 | NUR ---
ED Nurse Note: Patient has chest pain x 4 hours, high BP, h/o hypertension, 230/115. Pt AO4. NAD. VSS. ERMD at bedside
[2018-09-14] MEDS ORDERED: Morphine Sulfate 4mg/ml Inj (IV/IM USE ONLY) IVP ONE (00:15)
--- NOTE | 2018-09-14 00:15 | NUR ---
ED Nurse Note: IV access established. blood drawn; sent down to lab.
[2018-09-14 00:40] LABS: BASOPHILS % (AUTO) 1.2 % (0.0-2.0); EOSINOPHILS % (AUTO) 6.7 % (0.0-3.0); HEMATOCRIT 41.1 % (42.0-52.0); HEMOGLOBIN 12.9 G/DL (14.2-18.0); LYMPHOCYTES % (AUTO) 22.6 % (20.0-45.0); MEAN CORPUSCULAR VOLUME 92 FL (80-99); MONOCYTES % (AUTO) 7.4 % (1.0-10.0); NEUTROPHILS % (AUTO) 62.1 % (45.0-75.0); PLATELET COUNT 124 K/UL (150-450); RED BLOOD COUNT 4.46 M/UL (4.70-6.10); RED CELL DISTRIBUTION WIDTH 16.1 % (11.6-14.8); WHITE BLOOD COUNT 5.3 K/UL (4.8-10.8)
[2018-09-14 00:52] LABS: ANION GAP 8 mmol/L (5-15); BLOOD UREA NITROGEN 24 mg/dL (7-18); CALCIUM 9.2 MG/DL (8.5-10.1); CARBON DIOXIDE 32 MMOL/L (21-32); CHLORIDE 101 MMOL/L (98-107); CREATININE 6.4 MG/DL (0.55-1.30); POTASSIUM 4.6 MMOL/L (3.5-5.1); SODIUM 141 MMOL/L (136-145)
[2018-09-14 01:06] LABS: ALANINE AMINOTRANSFERASE 20 U/L (12-78); ALBUMIN 3.7 G/DL (3.4-5.0); ALBUMIN/GLOBULIN RATIO 0.8 (1.0-2.7); ALKALINE PHOSPHATASE 166 U/L (46-116); ASPARTATE AMINO TRANSFERASE 10 U/L (15-37); BILIRUBIN,TOTAL 0.4 MG/DL (0.2-1.0); CREATINE KINASE 70 U/L (26-308)
--- NOTE | 2018-09-14 02:08 | Emergency Room Report ---
History of Present Illness General Chief Complaint: Chest Pain Source: Patient Present Illness HPI This is a 68-year-old male with a history of renal failure on hemodialysis. Dialysis days are Thursday, Thursday, and Fridays. He also has history of CAD with a previous stent about a months ago. He was on Plavix but had nosebleed said he stopped it 4 weeks ago. He presents with chief complaint of chest pain and back pain. Chest pain started this afternoon. Pain is sharp in nature. No radiation. Pain is 8 out of 10. Minimal relief with aspirin and nitroglycerin by EMS. He also has chronic lower back pain for which she takes tramadol. He quit 2 days ago because he wanted be off of medication. Now with consistent lower back pain. This is unchanged from before. No incontinence of bowel or urine. Allergies: Coded Allergies: No Known Allergies (Unverified , 06/06/12) Patient History Past Medical History: see triage record, old chart reviewed, HTN, CAD, renal disease, dialysis Past Surgical History: other Pertinent Family History: none Social History: Denies: smoking Immunizations: other Reviewed Nursing Documentation: PMH: Agreed; PSxH: Agreed Nursing Documentation-PMH Hx Hypertension: Yes Hx Asthma: Yes Hx COPD: Yes Hx Cancer: No Hx Gastrointestinal Problems: No Hx Dialysis: Yes History Of Psychiatric Problem: Yes Hx Neurological Problems: No Review of Systems Eye: Denies: eye pain, blurred vision ENT: Denies: ear pain, nose congestion, throat swelling Respiratory: Denies: cough, shortness of breath Cardiovascular: Reports: chest pain; Denies: palpitations Gastrointestinal: Denies: abdominal pain, diarrhea, nausea, vomiting Musculoskeletal: Reports: back pain; Denies: joint pain Skin: Denies: rash Neurological: Denies: headache, numbness Endocrine: Denies: increased thirst, increased urine Hematologic/Lymphatic: Denies: easy bruising All Other Systems: negative except mentioned in HPI Physical Exam Vital Signs Date Time Temp Pulse Resp B/P (MAP) Pulse Ox O2 Delivery O2 Flow Rate FiO2 09/13/18 23:52 98.6 88 18 186/92 98 Room Air vitals with high blood pressure Sp02 EP Interpretation: reviewed, normal General Appearance: well appearing, no apparent distress, alert Head: normocephalic, atraumatic Eyes: bilateral eye PERRL, bilateral eye EOMI ENT: hearing grossly normal, normal pharynx Neck: full range of motion, supple, no meningismus Respiratory: chest non-tender, lungs clear, normal breath sounds Cardiovascular #1: regular rate, rhythm, no murmur Gastrointestinal: normal bowel sounds, non tender, no mass, no organomegaly, no bruit, non-distended Musculoskeletal: back normal, gait/station normal, normal range of motion Psychiatric: mood/affect normal Skin: warm/dry Medical Decision Making Diagnostic Impression: Primary Impression: Chest pain Qualified Codes: R07.9 - Chest pain, unspecified Additional Impression: HTN (hypertension) Qualified Codes: I10 - Essential (primary) hypertension ER Course Patient with chest pain and back pain. EKG showed PAC and LVH. First set troponin unremarkable. Patient is pain-free now. Because of his risk factors, in a medical opinion, he need to be admitted for further workup and monitoring. I discussed case with Dr. Kimbrough who will admit. Lab Results Impression labs unremarkable EKG Diagnostic Results Rate: normal Rhythm: NSR ST Segments: other - Nonspecific ST changes Rhythm Strip Diag. Results Rhythm Strip Time: 02:08 EP Interpretation: yes Rate: 94 Rhythm: NSR, no PVC's, no ectopy Chest X-Ray Diagnostic Results Chest X-Ray Diagnostic Results : Chest X-Ray Ordered: Yes # of Views/Limited/Complete: 1 View Indication: Chest Pain EP Interpretation: Yes Interpretation: no consolidation, no effusion, no pneumothorax, no acute cardiopulmonary disease Impression: No acute disease Electronically Signed by: George Ontiveros MD Last Vital Signs Date Time Temp Pulse Resp B/P (MAP) Pulse Ox O2 Delivery O2 Flow Rate FiO2 09/14/18 00:51 98.6 09/13/18 23:52 88 18 186/92 98 Room Air Status: improved Disposition: ADMITTED INPATIENT Condition: Serious George Ontiveros MD Sep 14, 2018 02:08
[2018-09-14] MEDS ORDERED: traMADol 50mg tab ORAL ONE (02:15)
--- NOTE | 2018-09-14 03:10 | NUR ---
TRANSFER TO FLOOR: Patient transferred to Telemetry 241-1 as ordered, per MD Luis E . Report given to ASAD Gunter. Belongings and medications given to receiveing RN. Patient in stable condition.
[2018-09-14 03:21] VITALS: BP 159/58
--- NOTE | 2018-09-14 03:25 | NUR ---
NURSE NOTES: Received pt ,a new admission from ED,brought to SDU per robert awake,alert oriented,ambulatory,noted no resp distress,on RA,verbalized still having a little chest pain, scale of 2,received Morphine and Tramadol in ER, at 0200,skin warm and dry to touch,IV to RFA 20 G and Hemodialysis Shunt to ЮЛИЯ intact,SR up x2,call chanel within reach,bed in lowest position,will continue to monitor pt.Report given at bedside by Dayo Miranda,HAND III CUTTER.
[2018-09-14 04:00] VITALS: BP 161/89
[2018-09-14] MEDS ORDERED: NIFEDIPINE ER60 M2 ORAL (05:23)
[2018-09-14] MEDS ORDERED: IBUPROFEN600 MG ORAL (05:23)
[2018-09-14] MEDS ORDERED: OMEPRAZOLE40 M1 ORAL (05:23)
[2018-09-14] MEDS ORDERED: COREG6.25 MG ORAL (05:23)
[2018-09-14] MEDS ORDERED: LEXAPRO10 MG ORAL (05:23)
[2018-09-14] MEDS ORDERED: NITROSTAT0.4 M2 SL (05:23)
[2018-09-14] MEDS ORDERED: MINOXIDIL10 MG PO (05:23)
[2018-09-14] MEDS ORDERED: TRAMADOL HCL50 MG ORAL (05:23)
[2018-09-14] MEDS ORDERED: traMADol 50mg tab ORAL PRN (07:15)
--- NOTE | 2018-09-14 07:20 | NUR ---
HAND-OFF: Report given to Jyana Gasca RN .
--- NOTE | 2018-09-14 07:21 | NUR ---
NURSE NOTES: Received patient from ASAD Gunter. Patient VS stable at this time with no sign of acute distress. Patient alert and oriented at this time. Patient showing SR on the monitor at this time. Patient on RA and able to ambulate to the restroom. Patient reportedly steady on his feet. Patient skin is intact at this time. Patient has a left upper arm AV shunt and a right forearm 20G PIV that is patent, asymptomatic, and saline locked at this time. Patient bed in low position at this time. Admission orders placed at this time. Will follow up. Patient has positive troponin. Will follow up with following troponin lab draws. Patient does not have embolism prevention ordered at this time. Dr Kimbrough will place this order when he sees the patient.
[2018-09-14] MEDS ORDERED: Nitroglycerin Subl 0.4mg tab SL PRN (07:45)
[2018-09-14 08:00] VITALS: BP 131/72
[2018-09-14] MEDS: Carvedilol 6.25mg Tab ORAL SCH ×3 (09:00→21:07)
--- NOTE | 2018-09-14 09:02 | NUR ---
NURSE NOTES: Spoke with Dr Kimbrough in person. Doctor ordered for Tramadol to be changed to Q6HR PRN at this time and ordered to be called with result of troponin.
[2018-09-14] MEDS: Tamsulosin 0.4mg cap ORAL SCH (09:15)
[2018-09-14] MEDS: traMADol 50mg tab ORAL PRN ×2 (09:17→15:57)
--- NOTE | 2018-09-14 09:39 | NUR ---
NURSE NOTES: Patient reports that he already took his carvedilol and Procardia in ER last night and does not want to take the medication now. Patient also reports that he does not take neurontin and he does not take escialopram every day. he does not wish to take these medications now. MD will be made aware.
[2018-09-14] MEDS ORDERED: Minoxidil 10mg tab ORAL SCH (10:00)
--- NOTE | 2018-09-14 10:18 | NUR ---
NURSE NOTES: Paged Dr Kimbrough regarding troponin result.
--- NOTE | 2018-09-14 10:34 | NUR ---
NURSE NOTES: Spoke with Dr Kimbrough and notified him regarding the patient's positive troponin of 0.085. Dr Leon reported that he is consulting cardiology.
--- NOTE | 2018-09-14 10:35 | NUR ---
NURSE NOTES: Patient reports that he does not take Minoxidil anymore. Patient refused the medication.
--- NOTE | 2018-09-14 11:00 | NUR ---
NURSE NOTES: Paged Dr Kimbrough regarding Librium 10mg. The patient reported that he takes this medication at home daily.
--- NOTE | 2018-09-14 11:29 | Diagnostic Imaging Report ---
Indication: Shortness of breath, chest pain Technique: One view of the chest Comparison: 02/11/2017 Findings: Heart is mildly enlarged. The lungs and pleural spaces are clear. The heart appears more enlarged than on the previous exam Impression: Cardiomegaly. No acute process
[2018-09-14 12:00] VITALS: BP 137/73
[2018-09-14] MEDS ORDERED: Albuterol 90mcg Inhaler 8gm INH SCH (12:00)
[2018-09-14] MEDS ORDERED: LIBRIUM10 MG ORAL (12:30)
--- NOTE | 2018-09-14 12:45 | History and Physical Report ---
DATE OF ADMISSION: 09/14/2018 HISTORY OF PRESENT ILLNESS: This is a 68-year-old male with a history of CRF on dialysis. He also has a history of CAD and states that he had a cardiac stent placed about a month ago. He also states he had a negative stress test done about six months ago. Therefore, the history is not very clear. The patient states that he has been on Plavix, but stopped recently. He came with chest pain and back pain. The patient also has chronic pain and takes tramadol on regular basis. He was seen and worked up, was admitted to the hospital. PAST MEDICAL HISTORY: ESRD on dialysis, hypertension, and CAD. PAST SURGICAL HISTORY: Left AV shunt, cardiac stent. HOME MEDICATIONS: Include Coreg, Lexapro, Neurontin, hydralazine, Motrin, minoxidil, Procardia, Flomax, and tramadol. ALLERGIES: None reported. REVIEW OF SYSTEMS: The patient denies any headaches, hematemesis, melena, or hematochezia. PHYSICAL EXAMINATION: GENERAL: Reveals a 68-year-old male. VITAL SIGNS: Blood pressure is 160/80, heart rate 94, respirations , he is afebrile. HEENT: Unremarkable. LUNGS: Clear breath sounds bilaterally. ABDOMEN: Soft. NEUROLOGIC: Nonfocal. LABORATORY DATA: Lab testing shows hemoglobin 12.9, otherwise normal CBC and BMP. Troponin is 0.04. was pending. Creatinine 6.4. 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 X-ray of the chest apparently per ER physician was negative. IMPRESSION: 1. ESRD on dialysis. 2. Chest pain. 3. Borderline troponin. 4. Abnormal EKG. 5. PCI/CAD. 6. Hypertension. 7. Dialysis dependent ESRD. DISCUSSION: Admitted to the hospital. We will consult Nephrology and Cardiology. Continue medications. Check serial troponins. Resume tramadol. 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 Modesto Kimbrough M.D. DR: NAFISA/CASIE JOB#: [id number] CC:
[2018-09-14] MEDS: Albuterol ud Inhalation HHN SCH ×2 (14:09→19:15)
--- NOTE | 2018-09-14 14:30 | Consultation ---
DATE OF CONSULTATION: 09/14/2018 CONSULTING PHYSICIAN: Josué Barajas M.D. REFERRING PHYSICIAN: Modesto Kimbrough M.D. REASON FOR CONSULTATION: 1. End-stage renal disease, on hemodialysis. 2. Hypertension. HISTORY OF PRESENT ILLNESS: The patient is a pleasant 68-year-old gentleman on hemodialysis every Thursday, Thursday, and Thursday. He did have his hemodialysis session yesterday. The patient presented overnight for further evaluation and care of chest pain. He has a history of coronary artery disease with a previous stent placed a few months ago. He has been on Plavix, but had nosebleed, so he stopped it approximately 4 weeks ago. The patient is feeling better currently. Denies any shortness of breath, nausea, vomiting, or diarrhea. ALLERGIES: No known drug allergies. PAST MEDICAL HISTORY: 1. Hypertension. 2. CAD. 3. End-stage renal disease, on dialysis Thursday, Thursday and Thursday. PAST SURGICAL HISTORY: Left upper extremity AV fistula. SOCIAL HISTORY: No tobacco, alcohol, or illicit drug use FAMILY HISTORY: Positive for hypertension. REVIEW OF SYSTEMS: NEUROLOGIC: The patient denies headache, change in vision, syncope, or presyncopal episodes. CARDIOVASCULAR: The patient was having some chest pressure, but no palpitations. PULMONARY: No difficulty breathing, productive cough, or sputum. GASTROINTESTINAL/GENITOURINARY: No change in bowel habits. No nausea, vomiting. ENDOCRINOLOGY: No night sweats, fevers, or chills. LABORATORY DATA: Dated 09/14/2018, sodium 141, potassium 4.6, BUN 24, creatinine 6.4, calcium 9.2. Hemoglobin 12.9, white cell count 5.3, and platelet count 124. PHYSICAL EXAMINATION: VITAL SIGNS: Blood pressure 161/89, respiratory rate 20, pulse 94, temperature 98.1, 96% on room air. GENERAL: The patient awake, alert, not otherwise in distress. HEENT: Extraocular muscles intact. No lymphadenopathy. Oropharyngeal mucosa is clear and dry. CARDIOVASCULAR: S1 and S2. No rubs or gallops. PULMONARY: Clear to auscultation bilaterally. No rales, rhonchi, or wheezes. ABDOMEN: Nondistended and nontender. EXTREMITIES: No edema noted. ASSESSMENT AND PLAN: 1. End-stage renal disease, on hemodialysis. We will continue hemodialysis Thursday, Thursday and Thursday while inpatient. The patient has a dry weight of 71 kg. 2. Hypertension. We will adjust medications as deemed appropriate during hospitalization. 3. Coronary artery disease/ACS with chest pain. The patient has stent and had discontinued his Plavix. Being managed by primary care physician. 4. Anemia of chronic kidney disease. Hemoglobin greater than 10. We will hold Epogen. We will continue to follow this patient on a daily basis. Josué Barajas MD DR: DOMENICO JOB#: [id number] CC:
[2018-09-14 16:00] VITALS: BP 134/71
[2018-09-14] MEDS: chlordiazePOXIDE 5mg Cap ORAL SCH (16:46)
--- NOTE | 2018-09-14 19:23 | NUR ---
CASE MANAGEMENT: REVIEW 68/M BIBA FROM HOME CC: CHEST PAIN . HTN BP 230/115 SI: CHEST PAIN . ESRD ON HD T 98.6 HR 88 RR 18 BP 186/92 SAT 98% ROOM AIR TROPONIN I 0.085 IS: ZOFRAN I X1 MORPHINE IV X1 ULTRAM PO X1 HYDRALAZINE IV X1 PATIENT ADMITTED CECIL STEP DOWN UNIT 09/14/2018 DCP: PATIENT IS FROM HOME
[2018-09-14 20:00] VITALS: BP 153/77
--- NOTE | 2018-09-14 20:08 | NUR ---
NURSE NOTES: Recvd report from ASAD Dorantes. Pt is awake and AOX4. Pt is on room air with no sign of sob or resp distress. Pt denies chest pain at this time. Pt has Left upper arm shunt. Pt has HD on MWF. Palpable thrill and audible bruit. Pt has Right FA 20g, saline locked. Skin is intact. Pt ambulates to restroom with steady gait. Bed in lowest position, call light within reach, will continue with plan of care
--- NOTE | 2018-09-14 20:08 | NUR ---
HAND-OFF: Report given to ASAD Burns. Patient VS stable at this time. Patien reports that his pain is controlled at this time. Patient is to have dialysis tomorrow. Endorsed to follow up. Patient's troponin level is trending down. Endorsed to follow up.
--- NOTE | 2018-09-14 20:20 | NUR ---
NURSE NOTES: Called [facility] nephrology [phone] @ 1999 and s/w JC. Wolf will be the HD nurse. [facility] nephrology is aware of HD scheduled for tomorrow for this pt.
--- NOTE | 2018-09-14 22:51 | Consultation ---
History of Present Illness General Date patient seen: Sep 14, 2018 Time patient seen: 15:25 Chief Complaint: Chest Pain Present Illness HPI Patient is a 68 year old AAM who presents with chest pain in setting of hypertensive urgency SBP>200. He has a hx or ESRD and CAD as well and possible stent placed a month ago at [facility]. Cardiology was consulted for elevated troponin 0.08. CXR was clear. Currently BP improved to 150s. Troponin are flat in setting of elevated creatinine. Allergies: Coded Allergies: No Known Allergies (Unverified , 06/06/12) Medication History Scheduled Albuterol Sulfate (Ventolin Hfa), PUFF INH EVERY 6 HOURS, (Reported) Albuterol Sulfate (Ventolin Hfa), 2 PUFFS INH EVERY 6 HOURS, (Reported) Amlodipine Besylate (Norvasc), 10 MG PO DAILY, (Reported) Aspirin* (Aspir 81*), 81 MG ORAL DAILY, (Reported) Atenolol* (Tenormin*), 25 MG ORAL DAILY, (Reported) Atorvastatin (Lipitor), 80 MG ORAL BEDTIME, (Reported) Carvedilol (Coreg), 6.25 MG ORAL EVERY 12 HOURS, (Reported) Chlordiazepoxide Hcl* (Librium*), 10 MG ORAL DAILY, (Reported) Clonidine HCl (Clonidine HCl ER), 0.1 MG PO TID, (Reported) Escitalopram Oxalate* (Lexapro*), 5 MG ORAL DAILY, (Reported) Escitalopram Oxalate* (Lexapro*), 5 MG ORAL DAILY, (Reported) Gabapentin* (Gabapentin*), 100 MG ORAL HS, (Reported) Minoxidil* (Loniten*), 10 MG PO DAILY, (Reported) Nicotine (Nicotine Patch), 1 EA TD DAILY, (Reported) Nifedipine* (Nifedipine Er*), 90 MG ORAL DAILY, (Reported) Omeprazole (Omeprazole), 40 MG ORAL DAILY, (Reported) Tamsulosin HCl (Flomax), 0.4 MG ORAL DAILY, (Reported) Tiotropium [place]* (Spiriva*), 1 PUFF INH DAILY, (Reported) Scheduled PRN Ibuprofen* (Motrin*), 800 MG ORAL Q8H PRN for For Pain, (Reported) Tramadol Hcl* (Ultram*), 50 MG ORAL BID PRN for For Pain, (Reported) Miscellaneous Medications Nitroglycerin (Nitrostat), 0.4 MG SL, (Reported) Discontinued Medications Clopidogrel Bisulfate* (Plavix*), 75 MG ORAL DAILY, (Reported) Discontinued Reason: MD discontinued med Patient History Healthcare decision maker Resuscitation status Full Code Advanced Directive on File No Review of Systems Constitutional: Reports: no symptoms Eye: Reports: no symptoms ENT: Reports: no symptoms Respiratory: Reports: no symptoms Cardiovascular: Reports: chest pain Gastrointestinal: Reports: no symptoms Genitourinary: Reports: no symptoms Musculoskeletal: Reports: no symptoms Skin: Reports: no symptoms Psychiatric: Reports: no symptoms Neurological: Reports: no symptoms Endocrine: Reports: no symptoms Hematologic/Lymphatic: Reports: no symptoms Physical Exam General Appearance: no apparent distress, alert Lines, tubes and drains: peripheral HEENT: normocephalic, atraumatic Neck: non-tender, normal alignment, supple, normal inspection Respiratory/Chest: chest wall non-tender, lungs clear, normal breath sounds, no respiratory distress Cardiovascular/Chest: normal peripheral pulses, normal rate, regular rhythm Abdomen: normal bowel sounds, non tender Extremities: normal range of motion, non-tender Skin Exam: normal pigmentation Neurologic: surgical instruments inspector II-XII grossly normal, no motor/sensory deficits Last 24 Hour Vital Signs Date Time Temp Pulse Resp B/P (MAP) Pulse Ox O2 Delivery O2 Flow Rate FiO2 09/14/18 21:07 61 153/77 09/14/18 21:00 Room Air 09/14/18 20:00 76 09/14/18 20:00 98.8 61 20 153/77 (102) 94 09/14/18 19:10 75 18 100 Room Air 09/14/18 19:00 75 18 97 Room Air 21 09/14/18 19:00 75 18 Room Air 21 09/14/18 16:00 97.8 74 22 134/71 (92) 93 09/14/18 16:00 74 09/14/18 14:17 73 20 97 Room Air 21 09/14/18 14:12 68 20 Room Air 09/14/18 14:11 68 20 95 Room Air 09/14/18 12:00 97.9 79 21 137/73 (94) 93 09/14/18 12:00 80 09/14/18 10:00 131/72 09/14/18 09:00 Nasal Cannula 2.0 09/14/18 09:00 74 131/72 09/14/18 09:00 74 131/72 09/14/18 08:00 75 09/14/18 08:00 98.3 74 22 131/72 (91) 92 09/14/18 04:15 Room Air 09/14/18 04:00 94 09/14/18 04:00 98.1 94 20 161/89 (113) 96 09/14/18 03:21 88 18 Room Air 09/14/18 03:21 98.6 87 18 159/58 98 Room Air 09/14/18 03:10 98.6 18 159/58 98 Room Air 09/14/18 02:48 159/58 09/14/18 02:39 98.6 09/14/18 02:08 186/92 09/14/18 00:51 98.6 09/13/18 23:52 98.6 88 18 186/92 98 Room Air Intake and Output 09/13/18 09/14/18 18:59 06:59 Intake Total 120 ml Balance 120 ml Intake Oral 120 ml # Voids 1 Laboratory Tests Test 09/14/18 00:15 09/14/18 08:00 09/14/18 16:00 White Blood Count 5.3 K/UL (4.8-10.8) Red Blood Count 4.46 M/UL (4.70-6.10) L Hemoglobin 12.9 G/DL (14.2-18.0) L Hematocrit 41.1 % (42.0-52.0) L Mean Corpuscular Volume 92 FL (80-99) Mean Corpuscular Hemoglobin 29.0 PG (27.0-31.0) Mean Corpuscular Hemoglobin Concent 31.5 G/DL (32.0-36.0) L Red Cell Distribution Width 16.1 % (11.6-14.8) H Platelet Count 124 K/UL (150-450) L Mean Platelet Volume 7.6 FL (6.5-10.1) Neutrophils (%) (Auto) 62.1 % (45.0-75.0) Lymphocytes (%) (Auto) 22.6 % (20.0-45.0) Monocytes (%) (Auto) 7.4 % (1.0-10.0) Eosinophils (%) (Auto) 6.7 % (0.0-3.0) H Basophils (%) (Auto) 1.2 % (0.0-2.0) Sodium Level 141 MMOL/L (136-145) Potassium Level 4.6 MMOL/L (3.5-5.1) Chloride Level 101 MMOL/L (98-107) Carbon Dioxide Level 32 MMOL/L (21-32) Anion Gap 8 mmol/L (5-15) Blood Urea Nitrogen 24 mg/dL (7-18) H Creatinine 6.4 MG/DL (0.55-1.30) H Estimat Glomerular Filtration Rate 10.5 mL/min (>60) Glucose Level 94 MG/DL (74-106) Calcium Level 9.2 MG/DL (8.5-10.1) Total Bilirubin 0.4 MG/DL (0.2-1.0) Aspartate Amino Transf (AST/SGOT) 10 U/L (15-37) L Alanine Aminotransferase (ALT/SGPT) 20 U/L (12-78) Alkaline Phosphatase 166 U/L (46-116) H Total Creatine Kinase 70 U/L (26-308) Creatine Kinase MB 1.0 NG/ML (0.0-3.6) Creatine Kinase MB Relative Index 1.4 Troponin I 0.042 ng/mL (0.000-0.056) 0.085 ng/mL (0.000-0.056) 0.080 ng/mL (0.000-0.056) Total Protein 8.1 G/DL (6.4-8.2) Albumin 3.7 G/DL (3.4-5.0) Globulin 4.4 g/dL Albumin/Globulin Ratio 0.8 (1.0-2.7) L Height (Feet): 5 Height (Inches): 9.00 Weight (Pounds): 147 Medications Current Medications Medications (Trade) Dose Ordered Sig/Bisi Route PRN Reason Start Time Stop Time Status Last Admin Dose Admin Albuterol Sulfate (Proventil) 2.5 mg Q6HRT HHN 09/14/18 07:45 09/19/18 07:44 09/14/18 19:15 Carvedilol (Coreg) 6.25 mg EVERY 12 HOURS ORAL 09/14/18 09:00 10/14/18 08:59 09/14/18 21:07 Chlordiazepoxide (Librium) 10 mg DAILY ORAL 09/14/18 17:00 09/21/18 16:59 09/14/18 16:46 Escitalopram Oxalate (Lexapro) 5 mg DAILY ORAL 09/14/18 09:00 10/14/18 08:59 Ibuprofen (Motrin) 800 mg Q8H PRN ORAL Moderate Pain (Pain Scale 4-6) 09/14/18 07:15 10/14/18 07:14 Nifedipine (Procardia XL) 90 mg DAILY ORAL 09/14/18 09:00 10/14/18 08:59 Nitroglycerin (Ntg) 0.4 mg Q5MIN X 3 DOSES PRN SL Prn Chest Pain 09/14/18 07:45 10/14/18 07:44 Tamsulosin HCl (Flomax) 0.4 mg DAILY ORAL 09/14/18 09:00 10/14/18 08:59 09/14/18 09:15 Tramadol HCl (Ultram) 50 mg Q6H PRN ORAL Severe Pain (Pain Scale 7-10) 09/14/18 09:05 09/21/18 09:04 09/14/18 15:57 Assessment/Plan Status: stable Assessment/Plan Assessment 1. ESRD on dialysis. 2. Chest pain. 3. Borderline troponin. 4. Abnormal EKG. 5. PCI/CAD. 6. Hypertension. Plan: Restart blood pressure medications Maintain HD Low salt diet Echocardiogram to evaluate LV function Mantain aspirin/plavix Defer stress testing or cardiac cath at this time Trino Yarbrough MD Sep 14, 2018 22:51
[2018-09-15] VITALS (9 sets, daily range): BP systolic 103–197; BP diastolic 68–112
--- NOTE | 2018-09-15 00:59 | NUR ---
NURSE NOTES: recvd call from lab with critical lab value troponin 0.072. trending down
[2018-09-15] MEDS: Albuterol ud Inhalation HHN SCH ×4 (01:00→19:00)
[2018-09-15 01:27] LABS: ANION GAP 12 mmol/L (5-15); BLOOD UREA NITROGEN 41 mg/dL (7-18); CALCIUM 9.6 MG/DL (8.5-10.1); CARBON DIOXIDE 27 MMOL/L (21-32); CHLORIDE 101 MMOL/L (98-107); CREATININE 8.9 MG/DL (0.55-1.30); POTASSIUM 5.2 MMOL/L (3.5-5.1); SODIUM 139 MMOL/L (136-145)
--- NOTE | 2018-09-15 05:59 | NUR ---
NURSE NOTES: Called Dr Kimbrough to advise of potassium level 5.2 (pt is scheduled for dialysis today) and to advise of troponin 0.072 (trending down).
--- NOTE | 2018-09-15 06:57 | NUR ---
HAND-OFF: Report given to Jayna KAMARA .
--- NOTE | 2018-09-15 06:58 | NUR ---
NURSE NOTES: Received patient from ASAD Burns. Patient VS stable at this time. Patient sleeping at this time. Patient reported to have walked around the unit last night. Patient steady on his feet. Patient alert and oriented when awake. Patient has an order for 2L NC as needed for shortness of breath.Patient did not need the NC during the night. Patient on RA at this time. Patient skin intact. Patient ambulates to the restroom. Patient showing sinus rhythm on the cardiac rehab nurse. Patient has a left upper arm AV shunt and a right forearm 20G PIV that is patent and asymptomatic at this time. Patient bed in low position with call light within reach. Patient has an ordeer for dialysis today. Will follow up. Patient has a positive troponin level of 0.072 this morning and a potassium of 5.2. A message was left for Dr Sandoval. Awaiting call back at this time.
--- NOTE | 2018-09-15 08:08 | NUR ---
NURSE NOTES: Paged Dr Kimbrough regarding patient's blood pressure of 192/110 this morning. Patient has blood pressure medications ordered for this morning, but they are not due until 0900.
--- NOTE | 2018-09-15 08:10 | NUR ---
NURSE NOTES: Dr Kimbrough ordered for the blood pressure medications to be given early this morning. Will administer medication and reassess.
[2018-09-15] MEDS: Carvedilol 6.25mg Tab ORAL SCH ×2 (08:22→20:43)
[2018-09-15] MEDS: Tamsulosin 0.4mg cap ORAL SCH (08:22)
[2018-09-15] MEDS: Aspirin Baby 81mg NG SCH (08:22)
[2018-09-15] MEDS: chlordiazePOXIDE 5mg Cap ORAL SCH (08:23)
--- NOTE | 2018-09-15 08:26 | Nephrology Progress Note ---
Assessment/Plan Assessment/Plan A/P 1) ESRD- HD today ordered 2) Hyperk+, mild HD on low 2K 3) ACS/Chest Pain- resolved, Trop I trending down 4) HTN- increased coreg Subjective Date patient seen: Sep 15, 2018 Time patient seen: 08:24 ROS Limited/Unobtainable: No Allergies: Coded Allergies: No Known Allergies (Unverified , 06/06/12) All Systems: reviewed and negative except above Subjective Patient feeling better, CP resolved Objective Last 24 Hour Vital Signs Date Time Temp Pulse Resp B/P (MAP) Pulse Ox O2 Delivery O2 Flow Rate FiO2 09/15/18 07:55 Room Air 09/15/18 07:24 79 18 96 Room Air 21 09/15/18 07:24 79 18 Room Air 21 09/15/18 04:00 98.4 79 20 159/92 (114) 95 09/15/18 04:00 77 09/15/18 01:05 Nasal Cannula 2.0 28 09/15/18 01:05 Nasal Cannula 2.0 28 09/15/18 00:00 98.4 69 20 145/87 (106) 96 09/15/18 00:00 76 09/14/18 21:07 61 153/77 09/14/18 21:00 Room Air 09/14/18 20:00 76 09/14/18 20:00 98.8 61 20 153/77 (102) 94 09/14/18 19:10 75 18 100 Room Air 21 09/14/18 19:00 75 18 97 Room Air 21 09/14/18 19:00 75 18 Room Air 21 09/14/18 16:00 Nasal Cannula 2.0 09/14/18 16:00 97.8 74 22 134/71 (92) 93 09/14/18 16:00 74 09/14/18 14:17 73 20 97 Room Air 21 09/14/18 14:12 68 20 Room Air 21 09/14/18 14:11 68 20 95 Room Air 21 09/14/18 12:00 Room Air 09/14/18 12:00 97.9 79 21 137/73 (94) 93 09/14/18 12:00 80 09/14/18 10:00 131/72 09/14/18 09:00 Room Air 09/14/18 09:00 74 131/72 09/14/18 09:00 74 131/72 Intake and Output 09/14/18 09/15/18 19:00 07:00 Intake Total 800 ml 200 ml Output Total 880 ml Balance -80 ml 200 ml Intake Oral 800 ml 200 ml Output Urine Total 880 ml # Voids 1 # Bowel Movements 1 Laboratory Tests 09/14/18 16:00: Troponin I 0.080H 09/15/18 00:20: Troponin I 0.072H, Sodium Level 139, Potassium Level 5.2H, Chloride Level 101, Carbon Dioxide Level 27, Anion Gap 12, Blood Urea Nitrogen 41H, Creatinine 8.9H , Estimat Glomerular Filtration Rate 7.3, Glucose Level 90, Calcium Level 9.6 Height (Feet): 5 Height (Inches): 9.00 Weight (Pounds): 147 General Appearance: no apparent distress, alert EENT: normal ENT inspection Neck: normal alignment, supple Cardiovascular: normal rate, regular rhythm Respiratory/Chest: lungs clear, normal breath sounds Abdomen: non tender, soft Edema: no edema noted Arm (L), no edema noted Arm (R), no edema noted Leg (L), no edema noted Leg (R), no edema noted Pedal (L), no edema noted Pedal (R), no edema noted Generalized Josué Barajas MD Sep 15, 2018 08:26
--- NOTE | 2018-09-15 08:41 | NUR ---
NURSE NOTES: Patient refused his Plavix at this time. Dr Yarbrough notified. Patient also stated that he takes his lexapro at night. Will ask Dr Kimbrough when he comes in if we can change the medication to be given at night.
[2018-09-15] MEDS: traMADol 50mg tab ORAL PRN ×2 (08:50→17:23)
--- NOTE | 2018-09-15 09:00 | NUR ---
NURSE NOTES: Dr Barajas ordered for the blood pressure medications to be given this morning despite the dialysis ordered for today.
--- NOTE | 2018-09-15 09:10 | NUR ---
NURSE NOTES: Patient is feeling dizzy at this time. Patient blood pressure is now 174/112. Will reassess. Patient instructed to notify me if the dizziness gets worse. Will continue to monitor.
[2018-09-15] MEDS ORDERED: Carvedilol 6.25mg Tab ORAL SCH (09:30)
--- NOTE | 2018-09-15 09:42 | Pulmonology Progress Note ---
Assessment/Plan Assessment/Plan 1. ESRD on dialysis. 2. Chest pain. 3. Borderline troponin. 4. Abnormal EKG. 5. PCI/CAD. 6. Hypertension. 7. Dialysis dependent ESRD. 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 Blood pressure control Cardiology followup HD today Subjective Interval Events: Hypertensice this AM; for HD today Constitutional: Reports: no symptoms HEENT: Repors: no symptoms Respiratory: Reports: no symptoms Cardiovascular: Reports: no symptoms Gastrointestinal/Abdominal: Reports: no symptoms Genitourinary: Reports: no symptoms Allergies: Coded Allergies: No Known Allergies (Unverified , 06/06/12) Objective Last 24 Hour Vital Signs Date Time Temp Pulse Resp B/P (MAP) Pulse Ox O2 Delivery O2 Flow Rate FiO2 09/15/18 08:48 84 192/110 09/15/18 08:23 84 192/110 09/15/18 08:22 84 192/110 09/15/18 08:00 98.2 84 20 197/110 (139) 95 09/15/18 07:55 Room Air 09/15/18 07:34 79 18 100 Room Air 21 09/15/18 07:24 79 18 96 Room Air 21 09/15/18 07:24 79 18 Room Air 21 09/15/18 04:00 98.4 79 20 159/92 (114) 95 09/15/18 04:00 77 09/15/18 01:05 Nasal Cannula 2.0 28 09/15/18 01:05 Nasal Cannula 2.0 28 09/15/18 00:00 98.4 69 20 145/87 (106) 96 09/15/18 00:00 76 09/14/18 21:07 61 153/77 09/14/18 21:00 Room Air 09/14/18 20:00 76 09/14/18 20:00 98.8 61 20 153/77 (102) 94 09/14/18 19:10 75 18 100 Room Air 21 09/14/18 19:00 75 18 97 Room Air 21 09/14/18 19:00 75 18 Room Air 21 09/14/18 16:00 Nasal Cannula 2.0 09/14/18 16:00 97.8 74 22 134/71 (92) 93 09/14/18 16:00 74 09/14/18 14:17 73 20 97 Room Air 21 09/14/18 14:12 68 20 Room Air 21 09/14/18 14:11 68 20 95 Room Air 21 09/14/18 12:00 Room Air 09/14/18 12:00 97.9 79 21 137/73 (94) 93 09/14/18 12:00 80 09/14/18 10:00 131/72 Intake and Output 09/14/18 09/15/18 19:00 07:00 Intake Total 800 ml 200 ml Output Total 880 ml Balance -80 ml 200 ml Intake Oral 800 ml 200 ml Output Urine Total 880 ml # Voids 1 # Bowel Movements 1 General Appearance: no acute distress HEENT: normocephalic Respiratory/Chest: chest wall non-tender, lungs clear Cardiovascular: normal peripheral pulses, normal rate Abdomen: normal bowel sounds Laboratory Tests 09/14/18 16:00: Troponin I 0.080H 09/15/18 00:20: Troponin I 0.072H, Sodium Level 139, Potassium Level 5.2H, Chloride Level 101, Carbon Dioxide Level 27, Anion Gap 12, Blood Urea Nitrogen 41H, Creatinine 8.9H , Estimat Glomerular Filtration Rate 7.3, Glucose Level 90, Calcium Level 9.6 Current Medications Medications (Trade) Dose Ordered Sig/Bisi Route PRN Reason Start Time Stop Time Status Last Admin Dose Admin Albuterol Sulfate (Proventil) 2.5 mg Q6HRT HHN 09/14/18 07:45 09/19/18 07:44 09/15/18 07:24 Aspirin (ASA) 81 mg DAILY NG 09/15/18 09:00 10/15/18 08:59 09/15/18 08:22 Carvedilol (Coreg) 6.25 mg ONCE ORAL 09/15/18 09:30 09/15/18 10:30 09/15/18 08:48 Carvedilol (Coreg) 12.5 mg EVERY 12 HOURS ORAL 09/15/18 21:00 10/14/18 20:59 Chlordiazepoxide (Librium) 10 mg DAILY ORAL 09/14/18 17:00 09/21/18 16:59 09/15/18 08:23 Clopidogrel Bisulfate (Plavix) 75 mg DAILY ORAL 09/15/18 09:00 10/15/18 08:59 Escitalopram Oxalate (Lexapro) 5 mg DAILY ORAL 09/14/18 09:00 10/14/18 08:59 Ibuprofen (Motrin) 800 mg Q8H PRN ORAL Moderate Pain (Pain Scale 4-6) 09/14/18 07:15 10/14/18 07:14 Nifedipine (Procardia XL) 90 mg DAILY ORAL 09/14/18 09:00 10/14/18 08:59 09/15/18 08:23 Nitroglycerin (Ntg) 0.4 mg Q5MIN X 3 DOSES PRN SL Prn Chest Pain 09/14/18 07:45 10/14/18 07:44 Tamsulosin HCl (Flomax) 0.4 mg DAILY ORAL 09/14/18 09:00 10/14/18 08:59 09/15/18 08:22 Tramadol HCl (Ultram) 50 mg Q6H PRN ORAL Severe Pain (Pain Scale 7-10) 09/14/18 09:05 09/21/18 09:04 09/15/18 08:50 Modesto Kimbrough MD Sep 15, 2018 09:42
--- NOTE | 2018-09-15 09:48 | Cardiology Progress Note ---
Assessment/Plan Status: stable Assessment/Plan Assessment/Plan Status: stable Assessment/Plan Assessment 1. ESRD on dialysis. 2. Chest pain. 3. Borderline troponin. 4. Abnormal EKG. 5. PCI/CAD. 6. Hypertension. Plan: Restart blood pressure medications - increased coreg to 12.5 BID, nifedipine, add imdur Maintain HD Low salt diet Echocardiogram to evaluate LV function Mantain aspirin/plavix Defer stress testing or cardiac cath at this time given recent PCI Troponin down trending Subjective Cardiovascular: Reports: no symptoms Respiratory: Reports: no symptoms Gastrointestinal/Abdominal: Reports: no symptoms Genitourinary: Reports: no symptoms Subjective Patient refused plavix, troponin trending down, no acute events, BP elevated this AM, medications adjusted Objective Last 24 Hour Vital Signs Date Time Temp Pulse Resp B/P (MAP) Pulse Ox O2 Delivery O2 Flow Rate FiO2 09/15/18 08:48 84 192/110 09/15/18 08:23 84 192/110 09/15/18 08:22 84 192/110 09/15/18 08:00 98.2 84 20 197/110 (139) 95 09/15/18 07:55 Room Air 09/15/18 07:34 79 18 100 Room Air 21 09/15/18 07:24 79 18 96 Room Air 21 09/15/18 07:24 79 18 Room Air 21 09/15/18 04:00 98.4 79 20 159/92 (114) 95 09/15/18 04:00 77 09/15/18 01:05 Nasal Cannula 2.0 28 09/15/18 01:05 Nasal Cannula 2.0 28 09/15/18 00:00 98.4 69 20 145/87 (106) 96 09/15/18 00:00 76 09/14/18 21:07 61 153/77 09/14/18 21:00 Room Air 09/14/18 20:00 76 09/14/18 20:00 98.8 61 20 153/77 (102) 94 09/14/18 19:10 75 18 100 Room Air 21 09/14/18 19:00 75 18 97 Room Air 21 09/14/18 19:00 75 18 Room Air 21 09/14/18 16:00 Nasal Cannula 2.0 09/14/18 16:00 97.8 74 22 134/71 (92) 93 09/14/18 16:00 74 09/14/18 14:17 73 20 97 Room Air 21 09/14/18 14:12 68 20 Room Air 21 09/14/18 14:11 68 20 95 Room Air 21 09/14/18 12:00 Room Air 09/14/18 12:00 97.9 79 21 137/73 (94) 93 09/14/18 12:00 80 09/14/18 10:00 131/72 General Appearance: no apparent distress EENT: PERRL/EOMI, normal ENT inspection, TMs normal Neck: non-tender, normal alignment, supple, normal inspection, no JVD Rhythm: NSR Cardiovascular: normal peripheral pulses, normal rate, regular rhythm Respiratory/Chest: chest wall non-tender, lungs clear, normal breath sounds, no respiratory distress, no accessory muscle use Abdomen: normal bowel sounds, non tender, soft, no organomegaly Extremities: normal range of motion, non-tender, normal inspection, no calf tenderness, no swelling 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: 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 grossly normal, no motor/sensory deficits Intake and Output 09/14/18 09/15/18 19:00 07:00 Intake Total 800 ml 200 ml Output Total 880 ml Balance -80 ml 200 ml Intake Oral 800 ml 200 ml Output Urine Total 880 ml # Voids 1 # Bowel Movements 1 Laboratory Tests Test 09/14/18 16:00 09/15/18 00:20 Troponin I 0.080 ng/mL (0.000-0.056) 0.072 ng/mL (0.000-0.056) Sodium Level 139 MMOL/L (136-145) Potassium Level 5.2 MMOL/L (3.5-5.1) H Chloride Level 101 MMOL/L (98-107) Carbon Dioxide Level 27 MMOL/L (21-32) Anion Gap 12 mmol/L (5-15) Blood Urea Nitrogen 41 mg/dL (7-18) H Creatinine 8.9 MG/DL (0.55-1.30) H Estimat Glomerular Filtration Rate 7.3 mL/min (>60) Glucose Level 90 MG/DL (74-106) Calcium Level 9.6 MG/DL (8.5-10.1) Trino Yarbrough MD Sep 15, 2018 09:48
--- NOTE | 2018-09-15 09:53 | NUR ---
NURSE NOTES: Spoke with Dr Kimbrough at this time with regards to the patient's current blood pressure after the medication. Also notified the doctor regarding the dizziness. Dr Kimbrough ordered to continue to monitor at this time. Also notified the doctor that the patient refused his plavix this morning. Dr Yarbrough is already aware.
--- NOTE | 2018-09-15 09:58 | NUR ---
NURSE NOTES: Also notified Dr Kimbrough that the patient wishes to take Lexapro at night because it makes him sleepy. Dr Kimbrough agreed that the patient can take the medication at night instead of the current administration time of 0900.
--- NOTE | 2018-09-15 10:16 | NUR ---
NURSE NOTES: Patient signed consent for hemodialysis inpatient. Consent in the chart. Patient blood pressure is 133/76 at this time. Patient reports that his pain has improved "a little bit" with the tramadol and his dizziness has improved.
--- NOTE | 2018-09-15 10:48 | NUR ---
NURSE NOTES: Dr Yarbrough ordered Imdur to be given. Patient blood pressure is 133/76 at this time and patient denies chest pain this morning. Notified Dr Yarbrough that this patient had a high BP this morning of 197/110 and has been given procardia and coreg. Patient's blood pressure has dropped significantly at this time to 133/76. Also notified him that the patient has an order for hemodialysis to be done today. Clarified with Dr Yarbrough whether the medication should be given or held at this time. Dr Yarbrough ordered for the medication to be held at this time.
[2018-09-15] MEDS ORDERED: Imdur 30mg tab ORAL SCH (11:00)
--- NOTE | 2018-09-15 17:07 | Cardiology Report ---
APPROVED REPORT EXAM: Two-dimensional and M-mode echocardiogram with Doppler and color Doppler. INDICATION Left ventricular function M-Mode DIMENSIONS IVSd0.7 (0.7-1.1cm)Left Atrium (MM)3.7 (1.6-4.0cm) LVDd4.2 (3.5-5.6cm)Aortic Root2.0 (2.0-3.7cm) PWd1.0 (0.7-1.1cm)Aortic Cusp Exc.2.1 (1.5-2.0cm) LVDs4.2 (2.5-4.0cm) PWs1.2 cm Normal left ventricular chamber size, systolic function and wall motion. Left ventricular ejection fraction estimated to be 45-50 %. Moderate left ventricular hypertrophy by 2D No evidence of pericardial effusion. Moderate bi-atrial enlargement. Right ventricular chamber size is upper limits of normal. Focal aortic valve sclerosis with adequate cusp excursion. Thickened mitral valve leaflets with normal excursion. Mitral annulus and aortic root calcification. Pulmonic valve not well visualized. Normal tricuspid valve structure. IVC dilated at 2.6 cm with no physiologic collapse suggestive of increased RA pressure. A color flow and spectral Doppler study was performed and revealed: No aortic regurgitation. Severe mitral regurgitation. Mitral inflow velocities indicates possible pseudo normalization pattern implying moderately elevated left atrial pressure (Grade II). Moderate tricuspid regurgitation. Tricuspid systolic velocities suggests peak right ventricular systolic pressure of 56 mmHg, consistent with moderate pulmonary hypertension.
--- NOTE | 2018-09-15 17:36 | NUR ---
HAND-OFF: Report given to ASAD Hathaway. Patient VS stable at this time. Patient complaining about back pain of 7/10 at this time. Patient given tramadol at this time. Patient is missing a rn ccu. Endorsed to follow up. Patient has Benadryl and Melatonin at the bedside that he refused to send to pharmacy upon admission.
--- NOTE | 2018-09-15 17:37 | NUR ---
NURSE NOTES: Patient transferred from [facility] 241-2 TO tele room 203-2. Received report from ASDA Dorantes. Patient is alert and oriented X4, ambulate with steady gait, skin is intact. Patient denies any pain at this time, no acute distress noted, all belongings accounted for and with patient. IV is intact and patent saline locked. Patient was oriented to room and made comfortable. Call light is within reach. Noted patient has home medications with him( Benadryl and Melatonin), the transferring nurse stated that the patient will not allow her to keep these OTC medications with [facility] pharmacy, during transfer I we also asked the patient to allow us to take meds to [facility] pharmacy several times, patient still insist in keeping meds with him. Made propellant charge zone assembler and nursing aluminum fabrication supervisor aware. Will continue with the plan of care.
--- NOTE | 2018-09-15 17:45 | NUR ---
NURSE NOTES: Contacted Dr Barajas regarding labs for tomorrow morning. Patient had a K of 5.2 this morning prior to dialysis. Dr Ferguson reported that he would place the order for AM labs at this time.
--- NOTE | 2018-09-15 18:21 | NUR ---
NURSE NOTES: Patient agreed to send his Melatonin and Benadryl down to pharmacy at this time. Patient had previously refused to send these medications to pharmacy. Receipt in the chart.
--- NOTE | 2018-09-15 18:25 | NUR ---
NURSE NOTES: Patient finally agreed to to send his medication to pharmacy, DEEPAK Dorantes RN took meds to pharmacy and receipt is in the chart.
--- NOTE | 2018-09-15 18:38 | Cardiology Report ---
APPROVED REPORT EKG Measurement Heart [id number] Sinus rhythm with premature atrial complexes Left axis deviation Possible Anterior infarct, age undetermined Abnormal ECG
--- NOTE | 2018-09-15 19:28 | NUR ---
HAND-OFF: Report given to ASAD Burns. Patient is in stable condition.
--- NOTE | 2018-09-15 20:30 | NUR ---
NURSE NOTES: Pt is awake and AOX4. Pt is on room air with no sign of sob or resp distress. Pt denies chest pain at this time. Pt has Left upper arm shunt. Pt has HD on MWF. Palpable thrill and audible bruit. Pt has Right FA 20g, saline locked. Skin is intact. Pt ambulates to restroom with steady gait. Bed in lowest position, call light within reach, will continue with plan of care
[2018-09-16] VITALS: BP 178/98
[2018-09-16] MEDS: Albuterol ud Inhalation HHN SCH ×2 (00:52→08:03)
[2018-09-16 04:00] VITALS: BP 155/80
--- NOTE | 2018-09-16 07:10 | NUR ---
NURSE NOTES: I received the patient awake and resting in bed. Patient alert and oriented x4. Patient does not display any signs of distress or SOB. Bed in the lowest position and call light within reach. I will continue to monitor the patient and implement care.
[2018-09-16 07:26] LABS: ANION GAP 12 mmol/L (5-15); BLOOD UREA NITROGEN 40 mg/dL (7-18); CALCIUM 9.5 MG/DL (8.5-10.1); CARBON DIOXIDE 30 MMOL/L (21-32); CHLORIDE 97 MMOL/L (98-107); CREATININE 8.8 MG/DL (0.55-1.30); POTASSIUM 4.8 MMOL/L (3.5-5.1); SODIUM 139 MMOL/L (136-145)
[2018-09-16] MEDS: traMADol 50mg tab ORAL PRN (07:48)
--- NOTE | 2018-09-16 07:52 | NUR ---
HAND-OFF: Report given to Lizz KAMARA .
[2018-09-16 08:00] VITALS: BP 188/95
[2018-09-16] MEDS: Tamsulosin 0.4mg cap ORAL SCH (08:08)
[2018-09-16 08:10] VITALS: BP 188/95
[2018-09-16] MEDS: Carvedilol 6.25mg Tab ORAL SCH (08:10)
[2018-09-16] MEDS: Aspirin Baby 81mg NG SCH (08:10)
--- NOTE | 2018-09-16 08:29 | Cardiology Progress Note ---
Assessment/Plan Status: stable Assessment/Plan Assessment/Plan Status: stable Assessment/Plan Assessment 1. ESRD on dialysis. 2. Chest pain. 3. Borderline troponin. 4. Abnormal EKG. 5. PCI/CAD. 6. Hypertension. Plan: Continue blood pressure medications - increased coreg to 12.5 BID, nifedipine, add imdur, patient may benefit from a clonidine patch Maintain HD Low salt diet Echocardiogram to evaluate LV function -> LVEF normal, moderate MR/TR and diastolic dysfunction Mantain aspirin/plavix (patient refused, aware of R/B/A of stent thrombosus) Defer stress testing or cardiac cath at this time given recent PCI Troponin down trending Dispo planning Subjective Cardiovascular: Reports: no symptoms Respiratory: Reports: no symptoms Gastrointestinal/Abdominal: Reports: no symptoms Genitourinary: Reports: no symptoms Subjective Patient refused plavix, troponin trending down, no acute events, BP elevated this AM, medications adjusted, had HD yesterday Objective Last 24 Hour Vital Signs Date Time Temp Pulse Resp B/P (MAP) Pulse Ox O2 Delivery O2 Flow Rate FiO2 09/16/18 08:10 81 188/95 09/16/18 08:09 188/95 09/16/18 08:09 81 188/95 09/16/18 08:09 80 18 99 Room Air 21 09/16/18 08:03 80 18 Room Air 21 09/16/18 08:03 80 18 95 Room Air 21 09/16/18 04:00 65 09/16/18 04:00 99.0 71 18 155/80 (105) 97 09/16/18 00:54 Room Air 21 09/16/18 00:53 Room Air 21 09/16/18 00:00 99.0 74 18 178/98 (124) 97 09/16/18 00:00 73 09/15/18 21:00 Room Air 09/15/18 20:57 Room Air 21 09/15/18 20:54 Room Air 21 09/15/18 20:54 76 18 Room Air 21 09/15/18 20:43 75 154/82 09/15/18 20:00 72 09/15/18 20:00 98.7 75 18 154/82 (106) 94 09/15/18 18:21 98.3 73 20 142/73 (96) 95 09/15/18 16:00 68 09/15/18 16:00 69 20 125/68 (87) 94 09/15/18 16:00 Room Air 09/15/18 13:28 Room Air 21 09/15/18 13:28 Room Air 21 09/15/18 12:55 61 09/15/18 12:00 97.2 62 18 103/97 (99) 94 09/15/18 12:00 Room Air 09/15/18 10:58 133/76 09/15/18 10:16 133/76 (95) 09/15/18 08:48 84 192/110 09/15/18 08:45 174/112 (132) General Appearance: no apparent distress, alert EENT: PERRL/EOMI, normal ENT inspection, TMs normal, pharynx normal Neck: non-tender, normal alignment, supple, normal inspection, no JVD Rhythm: NSR Cardiovascular: normal peripheral pulses, normal rate, regular rhythm Respiratory/Chest: chest wall non-tender, lungs clear, normal breath sounds, no respiratory distress Abdomen: normal bowel sounds, non tender, soft, no organomegaly, no mass Extremities: normal range of motion, non-tender, normal inspection Neurologic: compliance officer II-XII grossly normal, no motor/sensory deficits Intake and Output 09/15/18 09/16/18 19:00 07:00 Intake Total 860 ml Balance 860 ml Intake Oral 860 ml # Voids 2 3 Laboratory Tests Test 09/16/18 05:05 Sodium Level 139 MMOL/L (136-145) Potassium Level 4.8 MMOL/L (3.5-5.1) Chloride Level 97 MMOL/L (98-107) L Carbon Dioxide Level 30 MMOL/L (21-32) Anion Gap 12 mmol/L (5-15) Blood Urea Nitrogen 40 mg/dL (7-18) H Creatinine 8.8 MG/DL (0.55-1.30) H Estimat Glomerular Filtration Rate 7.3 mL/min (>60) Glucose Level 73 MG/DL (74-106) L Calcium Level 9.5 MG/DL (8.5-10.1) Trino Yarbrough MD Sep 16, 2018 08:29
[2018-09-16] MEDS: chlordiazePOXIDE 5mg Cap ORAL SCH (08:54)
[2018-09-16] MEDS ORDERED: Imdur 30mg tab ORAL SCH (09:00)
--- NOTE | 2018-09-16 09:54 | Pulmonology Progress Note ---
Assessment/Plan Assessment/Plan 1. ESRD on dialysis. 2. Chest pain. 3. Borderline troponin. 4. Abnormal EKG. 5. PCI/CAD. 6. Hypertension. 7. Dialysis dependent ESRD. 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 Blood pressure control Cardiology followup HD done yesterday Cardiac meds adjusted DC planning home today Subjective Interval Events: s/p HD yesterday; feeling better Constitutional: Reports: no symptoms HEENT: Repors: no symptoms Respiratory: Reports: no symptoms Cardiovascular: Reports: no symptoms Gastrointestinal/Abdominal: Reports: no symptoms Genitourinary: Reports: no symptoms Allergies: Coded Allergies: No Known Allergies (Unverified , 06/06/12) Objective Last 24 Hour Vital Signs Date Time Temp Pulse Resp B/P (MAP) Pulse Ox O2 Delivery O2 Flow Rate FiO2 09/16/18 08:10 81 188/95 09/16/18 08:09 188/95 09/16/18 08:09 81 188/95 09/16/18 08:09 80 18 99 Room Air 21 09/16/18 08:03 80 18 Room Air 21 09/16/18 08:03 80 18 95 Room Air 21 09/16/18 08:00 98.4 81 19 188/95 (126) 94 09/16/18 04:00 65 09/16/18 04:00 99.0 71 18 155/80 (105) 97 09/16/18 00:54 Room Air 21 09/16/18 00:53 Room Air 21 09/16/18 00:00 99.0 74 18 178/98 (124) 97 09/16/18 00:00 73 09/15/18 21:00 Room Air 09/15/18 20:57 Room Air 21 09/15/18 20:54 Room Air 21 09/15/18 20:54 76 18 Room Air 21 09/15/18 20:43 75 154/82 09/15/18 20:00 72 09/15/18 20:00 98.7 75 18 154/82 (106) 94 09/15/18 18:21 98.3 73 20 142/73 (96) 95 09/15/18 16:00 68 09/15/18 16:00 69 20 125/68 (87) 94 09/15/18 16:00 Room Air 09/15/18 13:28 Room Air 21 09/15/18 13:28 Room Air 21 09/15/18 12:55 61 09/15/18 12:00 97.2 62 18 103/97 (99) 94 09/15/18 12:00 Room Air 09/15/18 10:58 133/76 09/15/18 10:16 133/76 (95) Intake and Output 09/15/18 09/16/18 19:00 07:00 Intake Total 860 ml Balance 860 ml Intake Oral 860 ml # Voids 2 3 General Appearance: no acute distress HEENT: normocephalic Respiratory/Chest: chest wall non-tender, lungs clear Cardiovascular: normal peripheral pulses Laboratory Tests 09/16/18 05:05: Sodium Level 139, Potassium Level 4.8, Chloride Level 97L, Carbon Dioxide Level 30, Anion Gap 12, Blood Urea Nitrogen 40H, Creatinine 8.8H, Estimat Glomerular Filtration Rate 7.3, Glucose Level 73L, Calcium Level 9.5 Current Medications Medications (Trade) Dose Ordered Sig/Bisi Route PRN Reason Start Time Stop Time Status Last Admin Dose Admin Albuterol Sulfate (Proventil) 2.5 mg Q6HRT HHN 09/14/18 07:45 09/19/18 07:44 09/16/18 08:03 Aspirin (ASA) 81 mg DAILY NG 09/15/18 09:00 10/15/18 08:59 09/16/18 08:10 Carvedilol (Coreg) 12.5 mg EVERY 12 HOURS ORAL 09/15/18 21:00 10/14/18 20:59 09/16/18 08:10 Chlordiazepoxide (Librium) 10 mg DAILY ORAL 09/14/18 17:00 09/21/18 16:59 09/16/18 08:54 Clonidine HCl (Catapres Tab) 0.1 mg Q8H PRN ORAL SBP greater than 160 09/16/18 08:15 10/16/18 08:14 Clopidogrel Bisulfate (Plavix) 75 mg DAILY ORAL 09/15/18 09:00 10/15/18 08:59 Escitalopram Oxalate (Lexapro) 5 mg QHS ORAL 09/15/18 21:00 10/15/18 20:59 09/15/18 20:42 Ibuprofen (Motrin) 800 mg Q8H PRN ORAL Moderate Pain (Pain Scale 4-6) 09/14/18 07:15 10/14/18 07:14 Isosorbide Mononitrate (Imdur) 30 mg DAILY ORAL 09/16/18 09:00 10/16/18 08:59 09/16/18 08:09 Nifedipine (Procardia XL) 90 mg DAILY ORAL 09/14/18 09:00 10/14/18 08:59 09/16/18 08:09 Nitroglycerin (Ntg) 0.4 mg Q5MIN X 3 DOSES PRN SL Prn Chest Pain 09/14/18 07:45 10/14/18 07:44 Tamsulosin HCl (Flomax) 0.4 mg DAILY ORAL 09/14/18 09:00 10/14/18 08:59 09/16/18 08:08 Tramadol HCl (Ultram) 50 mg Q6H PRN ORAL Severe Pain (Pain Scale 7-10) 09/14/18 09:05 09/21/18 09:04 09/16/18 07:48 [place] Kimbrough MD Sep 16, 2018 09:54
[2018-09-16] MEDS ORDERED: COREG6.25 MG ORAL (09:58)
--- NOTE | 2018-09-16 11:16 | NUR ---
NURSE NOTES: Patient discharged in stable condition. Patient confirmed he was in possession of all his belongings and home medications he brought to the hospital. The patient's IV was removed and the IV site did not display any signs of bleeding, swelling or redness. Patient's ID wrist band was removed. Patient's sister, Angela, was contacted about the patient's discharge and she arranged transportation home for the patient. Patient ambulated to the lobby with the RN and did not display any signs of distress or SOB.
--- NOTE | 2018-09-17 14:57 | Discharge Summary ---
Discharge Summary Discharge Summary _ DATE OF ADMISSION: 09/14/2018 DATE OF DISCHARGE: 09/16/2018 DISCHARGED BY: Dr. Modesto Kimbrough CONSULTANTS: Dr. Trino Barajas BRIEF HOSPITAL COURSE: Patient is a 68-year-old male, with history of chronic renal failure, on hemodialysis. He also has history of coronary artery disease, stated he is status post cardiac stent about a month ago. He also stated that had a negative stress test done about 6 months ago. Patient stated he had been on Plavix but stopped recently. The patient also has chronic pain and takes tramadol on a regular basis. Pain described to be sharp in nature with no radiation, pain scale 8 out of 10. He had minimal relief with aspirin and nitroglycerin given by EMS. On evaluation at the ED, blood pressure was elevated to 186/92, heart rate 80. Blood work did not show any leukocytosis, hemoglobin and hematocrit were stable. Electrolytes were normal. BUN was 24, creatinine was 6.4. Troponin was 0.042 which was negative. EKG showed normal sinus rhythm with PACs and previous old anterior wall [place]. Chest x-ray was without any acute process. Because of his risk factors, he was admitted for evaluation of chest pain. He underwent cardiac monitoring. Medicine Tech was consulted. Cardiac enzymes were monitored. He was resumed on his blood pressure medications. He was ordered to have dual antiplatelet therapy, however patient refused Plavix. Blood pressure continued to be elevated. Antihypertensives were titrated. Coreg was increased to 12.5 mg twice daily. He was continued on Procardia 90 mg daily. Imdur was eventually added. He had an echocardiogram done that showed ejection fraction of 45% there was moderate mitral regurgitation and tricuspid regurgitation and diastolic dysfunction. Chief Fundraising Officer was consulted. He was continued on inpatient hemodialysis.There was milk potassium level elevation that resolved with hemodialysis. Troponin levels were flat were down trending. Per Cardio, defer any stress testing or cardiac catheterization at this time as patient had recent PCI. Patient was eventually discharged home. FINAL DIAGNOSES: Chest pain /Coronary artery disease with PCI End-stage renal disease on hemodialysis Abnormal EKG Hypertension Borderline troponin in the setting elevated creatinine Hyperkalemia DISPOSITION: Patient was discharged home. DISCHARGE MEDICATIONS: Refer to Discharge Medication List. DISCHARGE INSTRUCTIONS: Follow-up in a week. I have been assigned to complete a discharge summary on this account, I was not involved with the patient's management. Yanleis Bhagat NP Sep 17, 2018 14:57
== END 2018-09-16 11:18 | disposition home or self-care (01) | DRG 313 ==
LOC: EDBD 23:55 → EMR 09-14 00:10 → 2W 09-14 02:34 → EDBEDREQ 09-14 02:48 → 2W 09-14 05:39 → 2E 09-15 17:21
PROC: 5A1D70Z Performance of Urinary Filtration, Intermittent, Less than 6 Hours Per Day (ICD-10-PCS; principal; 2018-09-15)
DX: R07.9 Chest pain, unspecified (principal); N18.6 End stage renal disease; I12.0 Hypertensive chronic kidney disease with stage 5 chronic kidney disease or end stage renal disease; I25.10 Atherosclerotic heart disease of native coronary artery without angina pectoris; Z99.2 Dependence on renal dialysis; Z95.5 Presence of coronary angioplasty implant and graft; R74.8 Abnormal levels of other serum enzymes; E87.5 Hyperkalemia; I34.0 Nonrheumatic mitral (valve) insufficiency; I36.1 Nonrheumatic tricuspid (valve) insufficiency; Z91.14 Patient's other noncompliance with medication regimen
CPT/HCPCS: 36415; 71045; 80048; 80053; 82550; 82553; 84484; 85025; 87081; 93005; 93306; 94640; 94664; 96374; 96375; 99285; J2405